=== PATIENT | male | born 1955 | race Caucasian/White ===

== ENCOUNTER 2020-09-10 11:13 | Outpatient (REF) | payer MEDICARE, SELFPAY ==
--- NOTE | ~2020-09-10 | CT_ITS ---
EXAMINATION: CT CHEST SCREENING CLINICAL INFORMATION: Nicotine dependence. COMPARISON: 07/19/2019 TECHNIQUE: Multidetector volumetric CT imaging of the chest is performed without contrast using low dose technique. Additional 2D coronal and sagittal reformatted images and axial 3D maximum intensity projection (MIP) images are generated on the CT workstation. This CT examination was performed using dose optimization techniques as appropriate, variously including the following: *Automated exposure control *Adjustment of mA and/or kV according to patient size (this includes techniques or standardized protocols for targeted exams where dose is matched to indication/reason for exam; i.e. extremities or head) *Use of iterative reconstruction technique DLP: 62 mGy-cm FINDINGS: LUNGS: No significant changes of centrilobular emphysema seen. There is bilateral apical pleural-parenchymal scarring present. Central airways are patent. There is bronchial wall thickening present bilaterally without evidence of bronchiectasis. No confluent parenchymal disease identified. There is a calcified granuloma seen within the right lower lobe. There are some scattered sub-4 mm densities present. MEDIASTINUM: Visualized portions of the thyroid gland unremarkable. Heart normal size. No thoracic aortic aneurysm. Coronary artery calcifications present. No pericardial effusion. No mediastinal or hilar lymphadenopathy appreciated. PLEURA: There is no pleural effusion. No pleural mass or thickening. AXILLA: No lymphadenopathy. UPPER ABDOMEN: Status post cholecystectomy. There is some capsular calcification seen about the splenic capsule. OSSEOUS STRUCTURES: No suspicious destructive bony lesions identified. CT/CT lung screening IMPRESSION: No suspicious lung nodules identified. Diffuse bronchial wall thickening without bronchiectasis. ASSESSMENT: Lung-RADS category 1: Negative RECOMMENDATION: Routine annual low-dose CT screening in 12 months.
== END 2020-09-10 11:14 | disposition home or self-care (01) ==
LOC: HO.CT 11:13
PROVIDERS: Visit Provider Surgery
DX: Z12.2 Encounter for screening for malignant neoplasm of respiratory organs (principal); F17.210 Nicotine dependence, cigarettes, uncomplicated
CPT/HCPCS: 71271

== ENCOUNTER 2021-10-15 10:17 | Outpatient (REF) | payer MEDICARE, SELFPAY ==
--- NOTE | ~2021-10-15 | CT_ITS ---
EXAMINATION: CT CHEST SCREENING CLINICAL INFORMATION: Nicotine dependence. COMPARISON: CT chest 09/10/2020. TECHNIQUE: Multidetector volumetric CT imaging of the chest is performed without contrast using low dose technique. Additional 2D coronal and sagittal reformatted images and axial 3D maximum intensity projection (MIP) images are generated on the CT workstation. This CT examination was performed using dose optimization techniques as appropriate, variously including the following: *Automated exposure control *Adjustment of mA and/or kV according to patient size (this includes techniques or standardized protocols for targeted exams where dose is matched to indication/reason for exam; i.e. extremities or head) *Use of iterative reconstruction technique DLP: 56 mGy-cm. FINDINGS: LUNGS: The lungs are well expanded and clear of acute pneumonic process. There is mild bilateral apical parenchymal scarring and pleural thickening. There is a 1 mm calcified nodule, right lower lobe axial image 244/6. Few subcentimeter scattered densities, none of which are significant increase since the last exam. There are no new pulmonary nodules seen. MEDIASTINUM: The thyroid lobes are symmetrical and normal. The central trachea and the bronchi widely patent. Heart size and the great vessels are normal caliber. No abnormal-sized mediastinal or hilar lymph nodes seen. PLEURA: There is no pleural effusion. No pleural mass or thickening. AXILLA: No lymphadenopathy. UPPER ABDOMEN: Visualized liver, spleen, pancreas and bilateral adrenal glands appear unremarkable. The gallbladder has been surgically removed. OSSEOUS STRUCTURES: No lytic or sclerotic process seen. CT/CT lung screening IMPRESSION: Subcentimeter small nodules, stable. No suspicious new nodules seen. ASSESSMENT: Lung-RADS category 1: Negative. RECOMMENDATION: Low-dose annual CT chest.
== END 2021-10-15 10:18 | disposition home or self-care (01) ==
LOC: HO.CT 10:17
PROVIDERS: PCP Internal Medicine; Visit Provider Physician Assistant Medical
DX: Z12.2 Encounter for screening for malignant neoplasm of respiratory organs (principal); F17.210 Nicotine dependence, cigarettes, uncomplicated
CPT/HCPCS: 71271

== ENCOUNTER → 2022-01-05 13:38 | Outpatient (BNVA) | payer MEDICARE, SELFPAY | PROVIDERS: PCP Internal Medicine; Visit Provider Internal Medicine | DX: I48.91 Unspecified atrial fibrillation (principal); F17.210 Nicotine dependence, cigarettes, uncomplicated; Z79.899 Other long term (current) drug therapy; Z72.89 Other problems related to lifestyle | CPT/HCPCS: 93005; 99202 ==

== ENCOUNTER → 2022-01-19 10:08 | Outpatient (BNVA) | payer MEDICARE, SELFPAY | PROVIDERS: PCP Internal Medicine; Referring Provider Internal Medicine; Visit Provider Internal Medicine | DX: I48.0 Paroxysmal atrial fibrillation (principal) | CPT/HCPCS: 93005; 99212 ==

== ENCOUNTER → 2022-01-28 10:31 | Outpatient (REF) | payer MEDICARE, SELFPAY ==
--- NOTE | 2022-01-28 10:37 | HM_ITS ---
Conclusion: 1. Patient was monitored for total period of 3 days and 7 hours 2. Baseline rhythm is normal sinus rhythm with average heart of 75 beats per minute in sinus rhythm. 3. Intermittent episodes of atrial fibrillation with total burden of 15.5% with heart rate going up to 153 beats per minute atrial fibrillation. The longest episode lasted for 6 hours and 28 minutes 4. Frequent short runs of SVT which could represent atrial fibrillation with longest episode lasting 7 beats 5. Total of 9129 PACs accounting for 2.52% of total beats account for frequent PACs 6. Total of 1044 PVCs accounting for 0.29% of total beats accounting for occasional PVCs 7. Patient reported multiple events which correlated either with PACs or runs of atrial fibrillation. [facility]
--- NOTE | 2022-01-28 10:37 | CA_ITS ---
Transthoracic Echocardiogram Patient (Last, First, Middle): Boni Espinoza, Gender: Male Date of : 1955 Age: 66 Procedure Date: 01/28/2022 Procedure Type: Transthoracic Echocardiogram Location: OP Height: 172.72 cm Weight: 81.65 kg BSA: 1.95 m2 Heart Rate: bpm BP: 122 / 60 mmHg Post Tensioning Ironworker: Referring MD: Timmy Dee MD Healthcare Customer Service: Hilario Pascual MD Symptoms: I48.0 - Paroxysmal atrial fibrillation Study Quality: Fair, Good on apical views ECG Rhythm: Sinus Conclusions: - 1. Normal LV systolic function with grade 1 diastolic dysfunction 2. Normal cardiac valvular Doppler 3. No gross pericardial effusion Findings Left Ventricle The visually estimated ejection fraction is between 55-60%. Spectral Doppler is indicative of an impaired relaxation filling pattern. E/E prime ratio is <8, consistent with normal filling pressures. Evidence suggests grade I (mild) diastolic dysfunction. Peak GLS is -17.8%, within normal limits Right Ventricle Normal right ventricular cavity size and systolic function. Atria Both atria are normal in size. There is no evidence of interatrial shunt. Aortic Valve Normal aortic valve structure and function. There is no aortic valve stenosis. There is no aortic valve regurgitation. Mitral Valve Normal mitral valve structure and function. There is trace mitral valve regurgitation. There is no mitral valve stenosis. Pulmonic Valve The pulmonic valve is likely normal. Tricuspid Valve Likely normal tricuspid valve structure and function. Tricuspid regurgitation envelope is inadequate for calculation of right ventricular systolic pressure. Normal right atrial pressure. Great Vessels All visible segments of the aorta are normal in size. The pulmonary artery was not well visualized. Venous The inferior vena cava is normal in size and collapses greater than 50% with inspiration. Pericardium/Pleural There is no evidence of pericardial effusion. Prior Study Comparison no previous study in the last 5 years for comparison Measurements 2D Linear Measurements IVSd: 1.09 0.6-0.9/0.6-1.0 cm LVIDd: 4.20 3.9-5.3/4.2-5.9 cm LVIDd Index: 2.15 2.4-3.2/2.2-3.1 cm/m2 LVIDs: 2.98 2.0-3.6 cm LVPWd: 0.99 0.7-1.1 cm Ao Root: 3.10 2.1-3.5 cm LA Diam: 2.80 2.7-3.8/3.0-4.0 cm LAIDs Index: 1.44 1.5-2.3 cm/m2 LV Mass: 180.53 67-162/88-224 g LV Mass Index: 92.58 43-95/49-115 g/m2 LVOT Diam: 2.00 3.0+(-)1.3 cm 2D Systolic Function EF 4C: 53.90 >55% EF 2C: 51.90 >55% Mitral Valve MV Pk E: 0.43 MV PK A: 0.75 MV Decel Time: 228.00 E/A: 0.60 E'Lateral: 7.40 E'Medial: 4.90 E/E' Med: 8.80 E/E' Lat: 5.90 PHT: 67.00 MVA PHT: 3.28 Decel [place]: 1.90 Aortic Valve AoV Pk Leroy: 1.12 AoV Mn Leroy: 0.73 AoV VTI: 0.28 AoV Pk Grad: 5.00 Aov Mn Grad: 3.00 TOÑA Cont.VTI: 2.41 LVOT LVOT Pk Leroy: 1.03 LVOT Mn Leroy: 0.68 LVOT VTI: 0.21 LVOT Pk Grad: 4.00 LVOT Mn Grad: 2.00 LVOT Diam: 2.00 LVOT Area: 3.14 Diastolic Function MV Pk E: 0.43 MV Pk A: 0.75 E/A: 0.60 E'Medial: 4.90 E/E' Med: 8.80 E' Laterial: 7.40 E/E' Lat: 5.90 Right Ventricle TAPSE (mm): 28.00 TVS' Leroy: 12.00 Tricuspid Valve TR Pk Leroy: 2.04 TR Pk Grad: 17.00 RA Press: 3.00 Great Vessels Aorta Ao Root-2D: 3.10 2.0-3.7 cm Ao Asc: 3.10 2.1-3.4 cm Pulmonary Valve PV Pk Leroy: 0.95 Peak PV Grad: 4.00 Updated in Other Vendor System with Status of Final Hilario Pascual MD electronically signed on 01/28/2022 11:48:11 AM with status of Final
== END ==
LOC: HO.CARD 10:31
PROVIDERS: Visit Provider Internal Medicine
DX: I48.0 Paroxysmal atrial fibrillation (principal)
CPT/HCPCS: 93242; 93306; 93356

== ENCOUNTER → 2022-03-11 13:25 | Outpatient (BNVA) | payer MEDICARE, SELFPAY | PROVIDERS: PCP Internal Medicine; Referring Provider Internal Medicine; Visit Provider Internal Medicine | DX: I48.0 Paroxysmal atrial fibrillation (principal) | CPT/HCPCS: 99212 ==

== ENCOUNTER → 2022-07-06 13:00 | Outpatient (REF) | payer MEDICARE, SELFPAY ==
--- NOTE | 2022-07-06 13:02 | HM_ITS ---
* Total monitoring time approximately 3 days. * Underlying rhythm is atrial fibrillation. Present 96% the time. Some strips show evidence of sinus. * Ventricular rate as much as 164/Min. Other areas with controlled atrial fibrillation. * No significant pauses or AV blocks. Longest, 3.1 seconds. That strip has a lot of artifact. During sleep hours. * Overall, high burden of atrial fibrillation with evidence of rapid rates. MTDD
== END ==
LOC: HO.CARD 13:00
PROVIDERS: PCP Internal Medicine; Visit Provider Internal Medicine
DX: I48.91 Unspecified atrial fibrillation (principal)
CPT/HCPCS: 93242

== ENCOUNTER 2022-07-09 11:21 | Outpatient (REF) | payer MEDICARE, SELFPAY ==
[2022-07-09 11:26] LABS: MANUAL DIFF FLAG NO
[2022-07-09 11:38] LABS: Appearance Urine Clear; Basophils Absolute Auto 0.1 X10*3/uL (0.0-0.2); Basophils Percent Auto 0.9 % (0-2); Color Urine Yellow; Eosinophils Absolute Auto 0.1 X10*3/uL (0.0-0.4); Eosinophils Percent Auto 1.6 % (0-4); Glucose Urine UA Negative (Negative); Hematocrit 46.7 % (42.0-52.0); Hemoglobin 15.8 g/dl (14.0-18.0); Imm Gran Abs Auto 0.02 X10*3/uL (0.00-0.03); Imm Gran Pct Auto 0.4 % (0.0-0.4); Leukocyte Esterase Urine Negative (Negative); Lymphocytes Absolute Auto 1.3 X10*3/uL (1.2-4.9); Lymphocytes Percent Auto 23.7 % (20-40); Mean Corpuscular HGB Conc 33.8 g/dl (31.0-36.0); Mean Corpuscular Hemoglobin 32.9 pg (27.0-33.0); Mean Corpuscular Volume 97.3 fL (80.0-98.0); Mean Platelet Volume 10.7 fL (9.4-12.4); Monocytes Absolute Auto 0.6 X10*3/uL (0.1-1.2); Monocytes Percent Auto 11.3 % (2-11); Neutrophils Absolute Auto 3.4 x10*3/uL (2.0-8.3); Neutrophils Percent Auto 62.1 % (45-73); Nitrite Urine Negative (Negative); Platelet Count 231 X10*3/uL (160-400); Red Cell Distribution Width 13.4 % (11.0-16.0); Urine Blood Negative (Negative); Urine Ketones Negative (Negative); Urine Protein Trace mg/dL (Neg-Trace); White Blood Count 5.5 X10*3/uL (4.8-10.8)
[2022-07-09 12:15] LABS: Alanine Aminotransferase 35 U/L (0-40); Alkaline Phosphatase 64 U/L (39-117); Anion Gap 15 (12-20); Aspartate Amino Transferase 20 U/L (5-37); Bilirubin Direct 0.2 mg/dL (0.0-0.5); Bilirubin Total 0.7 mg/dL (0.0-1.0); Blood Urea Nitrogen 16 mg/dL (9-16); Calcium 9.1 mg/dL (8.4-10.2); Carbon Dioxide 27 mmol/L (22-29); Chloride 105 mmol/L (96-108); Cholesterol 168 mg/dL; Estimated Glomerular Filt Rate > 60; Glucose Fasting 152 mg/dL (60-99); HDL Cholesterol 45 mg/dL; LDL Cholesterol Calculated 89 mg/dl; PSA,Total (Free>4and<10) 0.39 ng/mL (0.00-4.00); Potassium 4.6 mmol/L (3.3-5.1); Sodium 142 mmol/L (135-145); Total Protein 6.7 g/dL (6.5-8.0); Triglycerides 170 mg/dL
[2022-07-09 13:41] LABS: Reflex LDLD? No
== END 2022-07-09 11:22 | disposition home or self-care (01) ==
LOC: HO.LNP 11:21
PROVIDERS: Visit Provider Internal Medicine
DX: Z12.5 Encounter for screening for malignant neoplasm of prostate (principal); I48.91 Unspecified atrial fibrillation; F10.20 Alcohol dependence, uncomplicated; F17.200 Nicotine dependence, unspecified, uncomplicated; I10 Essential (primary) hypertension; E78.00 Pure hypercholesterolemia, unspecified; J43.8 Other emphysema
CPT/HCPCS: 80053; 80061; 80076; 81003; 82248; 84153; 85025

== ENCOUNTER → 2022-07-21 10:09 | Outpatient (BNVA) | payer MEDICARE, SELFPAY | PROVIDERS: PCP Internal Medicine; Referring Provider Internal Medicine; Visit Provider Internal Medicine | DX: I48.0 Paroxysmal atrial fibrillation (principal); I25.10 Atherosclerotic heart disease of native coronary artery without angina pectoris; I25.84 Coronary atherosclerosis due to calcified coronary lesion | CPT/HCPCS: 93005; 99212 ==

== ENCOUNTER 2022-08-03 10:24 | Outpatient (REF) | payer MEDICARE, SELFPAY ==
--- NOTE | ~2022-08-03 | US_ITS ---
EXAMINATION: US ABDOMEN COMPLETE CLINICAL INFORMATION: Uncomplicated alcohol dependence. COMPARISON: CT abdomen and pelvis without contrast 11/09/2017. TECHNIQUE: Real-time imaging of the abdominal viscera. FINDINGS: PANCREAS: The majority of the pancreas is obscured by overlying bowel gas. The visualized portions of the head are within normal limits. ABDOMINAL AORTA: Visualized portions are within normal limits. INFERIOR VENA CAVA: Visualized portions are normal. LIVER: The liver is normal in size. The liver contour is normal. Increased echogenicity. No focal hepatic lesion. There is no intrahepatic biliary duct dilatation seen. GALLBLADDER: Surgically absent. COMMON BILE DUCT: Dilated measuring 1 cm. RIGHT KIDNEY: Normal. No hydronephrosis. No renal calculi or focal parenchymal lesions. The kidney measures 12.7 cm in maximum dimension. LEFT KIDNEY: Normal. No hydronephrosis. No renal calculi or focal parenchymal lesions. The kidney measures 12.2 cm in maximum dimension. SPLEEN: Normal. The spleen measures 8.2 cm in maximum dimension. FREE FLUID: None. US/US abdomen complete IMPRESSION: 1. Increased echogenicity of the liver is nonspecific but could be seen in the setting of hepatic steatosis or hepatocellular disease. 2. Dilated CBD, nonspecific in the setting of prior cholecystectomy. If an obstructive abnormality such as choledocholithiasis is suspected, recommend correlation with MRCP.
== END 2022-08-03 10:25 | disposition home or self-care (01) ==
LOC: HO.US 10:24
PROVIDERS: PCP Internal Medicine; Visit Provider Internal Medicine
DX: F10.20 Alcohol dependence, uncomplicated (principal)
CPT/HCPCS: 76700

== ENCOUNTER 2022-09-25 09:38 | Outpatient (REF) | payer MEDICARE, SELFPAY ==
--- NOTE | ~2022-09-25 | CT_ITS ---
EXAMINATION: CT CHEST SCREENING CLINICAL INFORMATION: Current smoker. 50 pack-year history. COMPARISON: Previous chest CT September 2021 TECHNIQUE: Multidetector volumetric CT imaging of the chest is performed without contrast using low dose technique. Additional 2D coronal and sagittal reformatted images and axial 3D maximum intensity projection (MIP) images are generated on the CT workstation. This CT examination was performed using dose optimization techniques as appropriate, variously including the following: *Automated exposure control *Adjustment of mA and/or kV according to patient size (this includes techniques or standardized protocols for targeted exams where dose is matched to indication/reason for exam; i.e. extremities or head) *Use of iterative reconstruction technique DLP: 61 mGy-cm FINDINGS: LUNGS: There is biapical pleural and parenchymal scarring. There is increasing linear parenchymal density in the right lung apex adjacent to the mediastinum. This measures 0.3 x 0.8 cm axial image 83 series 5. Attention on follow-up recommended. Small pulmonary nodules are stable. No new pulmonary nodule. Mild scarring or subsegmental atelectasis in the anterior segment of the right upper lobe and medial segment of the right middle lobe. No endobronchial or endotracheal lesion. MEDIASTINUM: The mediastinum is normal. CORONARY ARTERY CALCIFICATION: Mild PLEURA: There is no pleural effusion. No pleural mass or thickening. AXILLA: No lymphadenopathy. UPPER ABDOMEN: Linear probable capsular calcification of the spleen. Small calcifications in the pancreas suggestive of chronic pancreatitis. Post cholecystectomy. OSSEOUS STRUCTURES: Unremarkable. CT/CT lung screening IMPRESSION: Increasing linear parenchymal density in the right lung apex adjacent to the mediastinum. Attention on follow-up recommended. Otherwise small pulmonary nodules are stable. Mild emphysema. ASSESSMENT: Lung-RADS category 2: Benign RECOMMENDATION: Annual low-dose chest CT follow-up recommended.
== END 2022-09-25 09:39 | disposition home or self-care (01) ==
LOC: HO.CT 09:38
PROVIDERS: PCP Internal Medicine; Visit Provider Physician Assistant Medical
DX: Z12.2 Encounter for screening for malignant neoplasm of respiratory organs (principal); F17.210 Nicotine dependence, cigarettes, uncomplicated
CPT/HCPCS: 71271

== ENCOUNTER → 2023-01-12 07:43 | Outpatient (REF) | payer MEDICARE, SELFPAY ==
--- NOTE | ~2023-01-12 | NM_ITS ---
Lexiscan Myocardial perfusion study Indication: Coronary artery calcification on CT scan, assess for ischemia. Technique: The patient was brought in for a Lexiscan perfusion study on 01/12/2023 and was injected 0.4 mg of Lexiscan intravenously. Within a minute of this injection 30 mCi of sestamibi was given intravenously. Images were obtained using the SPECT gamma camera interlaced with the gating device. Images were obtained in supine position. Resting perfusion study was performed on 01/15/2023. Patient was administered 30 mCi of sestamibi intravenously at rest. Images were then obtained in supine position. Images were processed with the software and compared side to side in short axis, horizontal long axis and vertical long axis views. Total DLP 88mGy-cm. Findings: Raw acquisition reviewed. The stress perfusion study showed no significant perfusion abnormality. Both uncorrected as well as CT attenuation corrected images were reviewed. The gated study shows normal LV systolic function with calculated LVEF of 67%. LV cavity is normal in size. The gated study shows normal wall thickening and contraction of segments. Resting study shows no significant perfusion abnormality. Gating at rest reveals normal wall motion with ejection fraction at 54%. The findings are consistent with no clear reversible or fixed perfusion defects. NM/NM emily perf SPECT rest & str Impression: 1. Myocardial perfusion imaging study shows normal myocardial perfusion. 2. Gated LVEF is normal. 3. Transient ischemic dilatation not present. EKG component of the test reported separately.
--- NOTE | 2023-01-12 07:46 | CA_ITS ---
Acquisition Time: 2023-01-12 09:17:06 Total Exercise Time: 00:02:00 Test Indications: CAD Medications: METOPROLOL DILTIAZEM Protocol: LEXISCAN Max HR: 077 BPM 49% of Pred: 155 BPM Max BP: 144/076 mmHG Max Work Load: 1.6 METS Pharmacolgoical stress test with Lexiscan injection while walking slowly on the treadmill due to sinus judy, without anginal symptoms, with isolated PVCs, with normotensive response to Lexiscan, with T wave inversions V4-V6.. Nuclear images pending. Test reviewed with Dt. Martin. Referred By: Ambrosio Martin Overread By: AMBROSIO MARTIN
--- NOTE | 2023-01-12 07:46 | CA_ITS ---
Transthoracic Echocardiogram Patient (Last, First, Middle): Boni Espinoza, Gender: Male Date of : 1955 Age: 67 Procedure Date: 01/12/2023 Procedure Type: Transthoracic Echocardiogram Location: OP Height: 172.72 cm Weight: 87.09 kg BSA: 2.01 m2 Heart Rate: bpm BP: 132 / 76 mmHg Manager Personnel Selection: CHARLENE Referring MD: Timmy Dee MD Symptoms: I25.10 - Atherosclerotic heart disease of [place] coronary artery without... Study Quality: Fair ECG Rhythm: Sinus Conclusions: - The left ventricular systolic function is normal. The calculated ejection fraction is 63% by biplane method. - No obvious valvular pathology seen on this study. Findings Left Ventricle Normal left ventricular cavity size. There is normal left ventricular wall thickness. The left ventricular systolic function is normal. The calculated ejection fraction is 63% by biplane method. There is no evidence of regional wall motion abnormalities. Diastolic function is normal for age. LV peak GLS -18.8%. Right Ventricle Normal right ventricular cavity size and systolic function. Atria Both atria are normal in size. Aortic Valve There is a normal trileaflet aortic valve. There is no aortic valve stenosis. There is no aortic valve regurgitation. Mitral Valve The mitral valve appears normal. There is no mitral valve regurgitation. There is no mitral valve stenosis. Pulmonic Valve The pulmonic valve is likely normal. Tricuspid Valve Normal tricuspid valve structure. There is trace tricuspid valve regurgitation. There is no evidence of pulmonary hypertension. Great Vessels The asc aorta is normal in size. Venous The inferior vena cava is normal in size and collapses greater than 50% with inspiration. Pericardium/Pleural There is no evidence of pericardial effusion. Prior Study Comparison No significant change compared to prior study dated: 01/28/2022. Recommendations, Care & Conclusions No obvious valvular pathology seen on this study. Measurements 2D Linear Measurements IVSd: 1.00 0.6-0.9/0.6-1.0 cm LVIDd: 3.99 3.9-5.3/4.2-5.9 cm LVIDd Index: 1.99 2.4-3.2/2.2-3.1 cm/m2 LVIDs: 2.57 2.0-3.6 cm LVPWd: 0.90 0.7-1.1 cm LA Diam: 3.20 2.7-3.8/3.0-4.0 cm LAIDs Index: 1.59 1.5-2.3 cm/m2 LV Mass: 146.34 67-162/88-224 g LV Mass Index: 72.81 43-95/49-115 g/m2 LVOT Diam: 2.00 3.0+(-)1.3 cm 2D Systolic Function EF 4C: 65.40 >55% EF 2C: 58.40 >55% EF BiP: 63.40 >55% Mitral Valve MV Pk E: 0.68 MV PK A: 0.72 MV Decel Time: 278.00 E/A: 0.90 E'Lateral: 8.70 E'Medial: 7.29 E/E' Med: 9.30 E/E' Lat: 7.80 PHT: 81.00 MVA PHT: 2.72 Decel [place]: 2.43 Aortic Valve AoV Pk Leroy: 1.41 AoV Mn Leroy: 0.93 AoV VTI: 0.31 AoV Pk Grad: 8.00 Aov Mn Grad: 4.00 TOÑA Cont.VTI: 2.43 LVOT LVOT Pk Leroy: 1.16 LVOT Mn Leroy: 0.70 LVOT VTI: 0.24 LVOT Pk Grad: 5.00 LVOT Mn Grad: 2.00 LVOT Diam: 2.00 LVOT Area: 3.14 Diastolic Function MV Pk E: 0.68 MV Pk A: 0.72 E/A: 0.90 E'Medial: 7.29 E/E' Med: 9.30 E' Laterial: 8.70 E/E' Lat: 7.80 Right Ventricle TAPSE (mm): 26.20 TVS' Leroy: 12.30 Tricuspid Valve TR Pk Leroy: 1.56 TR Pk Grad: 10.00 RA Press: 3.00 RVSP: 13.00 Great Vessels Aorta Sinus of Valsalva: 3.32 2.0-3.[address] [place]: 2.92 1.7-3.4 cm Ao Asc: 3.60 2.1-3.4 cm Updated in Other Vendor System with Status of Final Timmy Dee MD electronically signed on 01/14/2023 11:23:18 AM with status of Final
== END ==
LOC: HO.CARD 07:43
PROVIDERS: PCP Internal Medicine; Visit Provider Internal Medicine
DX: I25.10 Atherosclerotic heart disease of native coronary artery without angina pectoris (principal); I25.84 Coronary atherosclerosis due to calcified coronary lesion
CPT/HCPCS: 78452; 93017; 93306; 93356; A9500; J0280; J2785

== ENCOUNTER → 2023-01-12 07:46 | Outpatient (BNV) | payer MEDICARE, SELFPAY | PROVIDERS: PCP Internal Medicine; Visit Provider Internal Medicine | DX: I25.10 Atherosclerotic heart disease of native coronary artery without angina pectoris (principal) | CPT/HCPCS: 78452; 93016; 93018; 93306 ==

== ENCOUNTER 2023-01-26 08:12 | Outpatient (AMB) | payer MEDICARE, SELFPAY ==
[2023-01-26 08:16] VITALS: BP 104/82; PULSE 77; BMI 29.2
--- NOTE | 2023-01-26 08:16 | A.OFFVIS_ITS ---
Intake Vital Signs 01/26/23 08:16 Height 5 ft 8 in Weight 192 lb 3.889 oz BMI 29.2 BP 104/82 Blood Pressure Location Lt brachial Position Sitting Pulse 77 Pulse Source Pulse Oximeter Intake Visit Reasons: follow up stress test Intake Note: Follow up stress test patient still felling s/b Top Spotter Required: No Allergies No Known Allergies Allergy (Verified 01/26/23 08:21) Medication List - Last Reconciled 01/26/23 by Alena Neumann NP-C apixaban (Eliquis) 5 mg PO BID 90 days diltiazem HCl 240 mg (2 x 120 mg) PO DAILY 90 days metoprolol tartrate 50 mg PO BID 90 days HPI follow up stress test HPI Details Boni is a 67-year-old male with past medical history alcohol use, smoking 1 pack cigarettes per day, paroxysmal atrial fibrillation who presents for follow-up after recent echocardiogram and stress test. Today he reports he has been feeling generally well. He does have some shortness of breath with physical activity which he states is his norm. He tells me he continues to smoke and drinks a few nips of alcohol daily. Uses his wifes inhaler at times, when he has coughing and wheezing. No chest discomfort at rest or with activity. He denies any heart palpitations, no dizziness, presyncope, syncope, falls. No PND, orthopnea or edema. He reports compliance with his medications. No bleeding issues reported with Eliquis. [facility] Surgical History No pertinent past surgical history Family History Father Heart disease Mother Diabetes Social History Alcohol intake: current Patient Tobacco Use Status: Current everyday Tobacco user Cigarette Packs Per Day: 1 Review of Systems Const All systems reviewed & are unremarkable except as noted in HPI and below Card Reports dyspnea on exertion Resp Details: Continues smoking Reports cough and Reports dyspnea on exertion Physical Exam Vital Signs: Last Vital Signs Pulse 77 01/26/23 08:16 BP 104/82 01/26/23 08:16 BMI result Body Mass Index 29.2 Const General: cooperative, healthy appearing, comfortable and no acute distress Orientation/consciousness: patient oriented x3 Neck Neck: Yes normal visual inspection Chest Chest palpation & inspection: normal inspection of the chest Resp Effort & Inspection: normal respiratory effort Auscultation: clear to auscultation bilaterally, no crackles, no rales, no rhonchi and no wheezes Cardio Jugular venous distension: no JVD Rate: regular rate Rhythm: regular rhythm Heart sounds: S1 normal heart sound present, S2 normal heart sound present, no gallops, no murmurs and no rubs Neuro General: patient oriented x3 Extrem General: Yes normal to inspection Psych Appearance: grossly normal Mental Status: mental status grossly normal Speech and movement: Normal speech and movement present Assessment & Plan Assessment & Plan (1) PAF (paroxysmal atrial fibrillation): Code(s): I48.0 - Paroxysmal atrial fibrillation Plan: History of paroxysmal atrial fibrillation. Holter monitor done 06/2022 showed atrial fibrillation 96% of the time, average heart rate 94. Is no concerning heart palpitations. He is on diltiazem and metoprolol for heart rate control. He is on Eliquis for anticoagulation. No bleeding issues reported. Echocardiogram done 01/12/2023 shows EF 63%, no valve abnormalities and no regional wall motion abnormalities. Heart tones are regular on examination today. Benefits of alcohol cessation, smoking cessation reviewed with him and he states understanding. Informed how alcohol can increase the frequency of atrial fibrillation. Continue current meds without change. Cardiology follow- up 6 months, sooner if needed. (2) Coronary artery calcification: Code(s): I25.10 - Atherosclerotic heart disease of [place] coronary artery without angina pectoris; I25.84 - Coronary atherosclerosis due to calcified coronary lesion Plan: Prior chest CT with coronary artery calcifications. No reports of anginal sounding symptoms. He underwent a pharmacological nuclear stress test on 01/15/2023 showing normal myocardial perfusion imaging. (3) Smoking: Comment: 1 pack per day, 01/2023 Code(s): F17.200 - Nicotine dependence, unspecified, uncomplicated Plan: Continues to smoke 1 pack of cigarettes per day. He does have expiratory wheezes noted on examination. He reports intermittent cough with sputum. He likely has COPD related to his chronic smoking. He tells me he has used his wifes inhaler at times. Will send this note to his PCP. Patient may benefit from further evaluation/treatment for this problem. Need for smoking cessation was discussed with him. (4) Alcohol use: Code(s): Z78.9 - Other specified health status Plan: He tells me he drinks a few nips daily. He says he is not addicted and could stop at any time. Instructed to stop drinking as it may affect his heart with increased AFib, cardiomyopathy. Coding Level of Care Code Est Pt Level 4 (52732) Diagnoses PAF (paroxysmal atrial fibrillation) I48.0 Coronary artery calcification I25.10; I25.84 Smoking F17.200 Alcohol use Z78.9 Time Spent (min) 24 Comment Chart review, documentation, interview, assessment
== END 2023-01-26 08:42 | disposition home or self-care (01) ==
PROVIDERS: PCP Internal Medicine; Referring Provider Internal Medicine; Visit Provider Nurse Practitioner Family
DX: I48.0 Paroxysmal atrial fibrillation (principal); I25.10 Atherosclerotic heart disease of native coronary artery without angina pectoris; I25.84 Coronary atherosclerosis due to calcified coronary lesion; F17.200 Nicotine dependence, unspecified, uncomplicated; Z78.9 Other specified health status
CPT/HCPCS: 99214

== ENCOUNTER → 2023-01-26 08:12 | Outpatient (BNVA) | payer MEDICARE, SELFPAY | PROVIDERS: PCP Internal Medicine; Referring Provider Internal Medicine; Visit Provider Nurse Practitioner Family | DX: I48.0 Paroxysmal atrial fibrillation (principal); I25.10 Atherosclerotic heart disease of native coronary artery without angina pectoris; F17.200 Nicotine dependence, unspecified, uncomplicated; Z79.01 Long term (current) use of anticoagulants; Z78.9 Other specified health status | CPT/HCPCS: 99212 ==

== ENCOUNTER 2023-08-13 13:43 | Outpatient (AMB) | payer MEDICARE, SELFPAY ==
[2023-08-13 14:10] VITALS: BP 120/70; PULSE 62; BMI 28.8
--- NOTE | 2023-08-13 14:10 | MHC.OFFVIS ---
Intake Vital Signs 08/13/23 14:10 Height 5 ft 8 in Weight 189 lb 2.506 oz BMI 28.8 BP 120/70 Blood Pressure Location Lt brachial Position Sitting Pulse 62 Intake Visit Reasons: 6 mth fu Intake Note: pt its here for his 6 mth f/up/ pt still with sob Configuration Management Administrator Required: No Accompanied by: Self / Same As Patient Allergies No Known Allergies Allergy (Verified 01/26/23 08:21) Medication List - Last Reconciled 08/13/23 by Alena Neumann NP-C apixaban (Eliquis) 5 mg PO BID 90 days diltiazem HCl 240 mg (2 x 120 mg) PO DAILY 90 days metoprolol tartrate 50 mg PO BID HPI 6 mth fu HPI Details Boni is a 67-year-old male with past medical history alcohol use, smoking 1 pack cigarettes per day, paroxysmal atrial fibrillation who presents for follow-up. Today he reports that he has been notice increasing shortness of breath with activity. He tells me just the walk from his car to this office became short of breath. Symptom does improve quickly with rest. He does have a congested cough at times which he relates to his smoking. He continues to smoke 1 pack of cigarettes per day. He also is drinking 6 alcohol nips per day. He denies having chest discomfort at rest or with activity. No heart palpitations, lightheadedness, presyncope, syncope, PND, orthopnea or edema. He says he is taking his meds as directed. [facility] Surgical History No pertinent past surgical history Family History Father Heart disease Mother Diabetes Social History Alcohol intake: current Patient Tobacco Use Status: Current everyday Tobacco user Cigarette Packs Per Day: 1 Review of Systems Const All systems reviewed & are unremarkable except as noted in HPI and below Denies chills, Denies fatigue, Denies fever(s), Denies frequent falls, Denies weakness, Denies weight gain and Denies weight loss ENT Denies dizziness Card Denies chest pain, Denies leg edema, Denies lightheadedness, Denies palpitations, Reports dyspnea and Reports dyspnea on exertion Resp Denies cough, Reports dyspnea and Reports dyspnea on exertion GI Denies hematochezia Musc Denies abnormal gait, Denies muscle weakness, Denies numbness, Denies radiating pain into limb and Denies tingling Neuro Denies abnormal gait, Denies dizziness, Denies frequent falls, Denies numbness, Denies tingling and Denies weakness Endo Denies fatigue and Denies palpitations Physical Exam Vital Signs: Last Vital Signs Pulse 62 08/13/23 14:10 BP 120/70 08/13/23 14:10 BMI result Body Mass Index 28.8 Const General: cooperative, healthy appearing, comfortable and no acute distress Orientation/consciousness: patient oriented x3 Neck Neck: Yes normal visual inspection Chest Chest palpation & inspection: normal inspection of the chest Resp Effort & Inspection: normal respiratory effort Auscultation: clear to auscultation bilaterally, no crackles, no rales, no rhonchi and no wheezes Cardio Jugular venous distension: no JVD Rate: regular rate Rhythm: regular rhythm Heart sounds: S1 normal heart sound present, S2 normal heart sound present, no gallops, no murmurs and no rubs Neuro General: patient oriented x3 Extrem General: Yes normal to inspection Psych Appearance: grossly normal Mental Status: mental status grossly normal Speech and movement: Normal speech and movement present Office Procedures EKG Details: Today, read by me, Sinus rhythm, new T wave inversions inferiorly and V4-V6, artifact present on tracing, rate 62, QTc 395ms [id number], Complete Assessment & Plan Assessment & Plan (1) PAF (paroxysmal atrial fibrillation): Code(s): I48.0 - Paroxysmal atrial fibrillation Plan: History of paroxysmal atrial fibrillation. Holter monitor done 06/2022 showed atrial fibrillation 96% of the time, average heart rate 94. Echocardiogram done 01/12/2023 shows EF 63%, no valve abnormalities and no regional wall motion abnormalities. He was in sinus rhythm at the time of the echocardiogram. EKG done today shows sinus rhythm, rate 62. He denies any recent heart palpitations. He is on diltiazem and metoprolol for heart rate control. He is on Eliquis for anticoagulation. No bleeding issues reported. Heart tones are regular on examination today. Drinking 6 alcoholic nips per day. Benefits of alcohol cessation, smoking cessation reviewed with him and he states understanding. Informed how alcohol can increase the frequency of atrial fibrillation. Continue current meds without change. (2) Coronary artery calcification: Code(s): I25.10 - Atherosclerotic heart disease of [place] coronary artery without angina pectoris; I25.84 - Coronary atherosclerosis due to calcified coronary lesion Plan: Prior chest CT with coronary artery calcifications. He underwent a pharmacological nuclear stress test on 01/15/2023 showing normal myocardial perfusion imaging. Echocardiogram as above with normal EF no regional wall motion abnormalities. Today is reporting increasing shortness of breath. This could be explained by his smoking 1 pack of cigarettes per day however EKG done today shows normal sinus rhythm with new T-wave inversions inferiorly and V4 through V6. He tells me that his father of an [place] at his age. Cardiac risk factors of smoking, history, sedentary. Reviewed with Dr. Dee. Will check a CTA of the coronary arteries as soon as we can get it done, will likely be at [facility]. Will check an limited echocardiogram to reassess EF and wall motion. Signs and symptoms of angina reviewed with him. Informed that he may have coronary artery narrowing. Emergency care if ever needed for any symptoms. Cardiology follow-up in 3-4 weeks, or when test results available/ sooner if needed (3) Smoking: Comment: 1 pack per day, 01/2023 Code(s): F17.200 - Nicotine dependence, unspecified, uncomplicated Plan: Continues to smoke 1 pack of cigarettes per day. He does have expiratory wheezes noted on examination. He reports intermittent cough with sputum. He likely has COPD related to his chronic smoking. He tells me he has used his wifes inhaler at times. Will send this note to his PCP. Need for smoking cessation was discussed with him. (4) Alcohol use: Code(s): Z78.9 - Other specified health status Plan: He tells me he drinks a few nips daily. He says he is not addicted and could stop at any time. Instructed to stop drinking as it may affect his heart with increased AFib, cardiomyopathy. Plan Time spent on chart review, documentation, interview assessment Orders: Orders CT Cardiac Coronary Angio Today R06.02 - Shortness of breath, R94.31 - Abnormal electrocardiogram [ECG] [EKG] CA echo limited Today R06.02 - Shortness of breath, R94.31 - Abnormal electrocardiogram [ECG] [EKG] Basic Metabolic Panel Today R06.02 - Shortness of breath Coding Level of Care Code Est Pt Level 4 (36142) Diagnoses PAF (paroxysmal atrial fibrillation) I48.0 Coronary artery calcification I25.10; I25.84 Smoking F17.200 Alcohol use Z78.9 CPT Codes EKG - CPT: [id number]-[id number], Complete ([id number]) Time Spent (min) 30
== END 2023-08-13 14:40 | disposition home or self-care (01) ==
PROVIDERS: PCP Internal Medicine; Visit Provider Nurse Practitioner Family
DX: I48.0 Paroxysmal atrial fibrillation (principal); I25.10 Atherosclerotic heart disease of native coronary artery without angina pectoris; I25.84 Coronary atherosclerosis due to calcified coronary lesion; F17.200 Nicotine dependence, unspecified, uncomplicated; Z78.9 Other specified health status
CPT/HCPCS: 93010; 99214

== ENCOUNTER → 2023-08-13 13:43 | Outpatient (BNVA) | payer MEDICARE, SELFPAY | PROVIDERS: PCP Internal Medicine; Visit Provider Nurse Practitioner Family | DX: I48.0 Paroxysmal atrial fibrillation (principal); I25.10 Atherosclerotic heart disease of native coronary artery without angina pectoris; I25.84 Coronary atherosclerosis due to calcified coronary lesion; I10 Essential (primary) hypertension; F10.21 Alcohol dependence, in remission; F17.210 Nicotine dependence, cigarettes, uncomplicated | CPT/HCPCS: 93005; 99212 ==

== ENCOUNTER → 2023-08-17 08:49 | Outpatient (REF) | payer MEDICARE, SELFPAY ==
--- NOTE | 2023-08-17 08:52 | CA_ITS ---
Transthoracic Echocardiogram Patient (Last, First, Middle): Boni Espinoza, Gender: Male Date of : 1955 Age: 68 Procedure Date: 08/17/2023 Procedure Type: Transthoracic Echocardiogram Location: OP Height: 172. cm Weight: 85.28 kg BSA: 1.98 m2 Heart Rate: 73 bpm BP: 95 / 65 mmHg Summer Counselor: CAL Fermin MD: Alena Neumann PROCESS OWNER-C Symptoms: R06.02 - Shortness of breath Study Quality: Fair ECG Rhythm: Atrial Fibrillation Conclusions: - The left ventricular systolic function is normal. The visually estimated ejection fraction is between 60-65%. Findings Left Ventricle Normal left ventricular cavity size. The left ventricular systolic function is normal. The visually estimated ejection fraction is between 60-65%. There is no evidence of regional wall motion abnormalities. Venous The inferior vena cava is normal in size and collapses greater than 50% with inspiration. Prior Study Comparison No significant change compared to prior study dated: 01/12/2023. Measurements 2D Linear Measurements IVSd: 0.94 0.6-0.9/0.6-1.0 cm LVIDd: 3.53 3.9-5.3/4.2-5.9 cm LVIDd Index: 1.78 2.4-3.2/2.2-3.1 cm/m2 LVIDs: 2.30 2.0-3.6 cm LVPWd: 1.04 0.7-1.1 cm LA Diam: 3.80 2.7-3.8/3.0-4.0 cm LAIDs Index: 1.92 1.5-2.3 cm/m2 LV Mass: 127.95 67-162/88-224 g LV Mass Index: 64.62 43-95/49-115 g/m2 LVOT Diam: 1.80 3.0+(-)1.3 cm 2D Systolic Function EF 4C: 54.90 >55% EF 2C: 51.80 >55% LVOT LVOT Pk Leroy: 0.81 LVOT Mn Leroy: 0.57 LVOT VTI: 0.15 LVOT Pk Grad: 3.00 LVOT Mn Grad: 1.00 LVOT Diam: 1.80 LVOT Area: 2.54 Updated in Other Vendor System with Status of Final Timmy Dee MD electronically signed on 08/17/2023 1:20:23 PM with status of Final
== END ==
LOC: HO.CARD 08:49
PROVIDERS: PCP Internal Medicine; Visit Provider Nurse Practitioner Family
DX: R06.02 Shortness of breath (principal); R94.31 Abnormal electrocardiogram [ECG] [EKG]
CPT/HCPCS: 93308

== ENCOUNTER → 2023-08-17 08:52 | Outpatient (BNV) | payer MEDICARE, SELFPAY | PROVIDERS: PCP Internal Medicine; Visit Provider Internal Medicine | DX: R06.02 Shortness of breath (principal) | CPT/HCPCS: 93308 ==

== ENCOUNTER 2023-09-07 12:33 | Outpatient (REF) | payer MEDICARE, SELFPAY ==
[2023-09-07 14:15] LABS: Anion Gap 14 (12-20); Blood Urea Nitrogen 11 mg/dL (9-16); Calcium 9.4 mg/dL (8.4-10.2); Carbon Dioxide 27 mmol/L (22-29); Chloride 99 mmol/L (96-108); Estimated Glomerular Filt Rate > 60; Glucose Random 338 mg/dL (60-115); Sodium 136 mmol/L (135-145)
== END 2023-09-07 12:34 | disposition home or self-care (01) ==
LOC: HO.LAB 12:33
PROVIDERS: Visit Provider Nurse Practitioner Family
DX: R06.02 Shortness of breath (principal)
CPT/HCPCS: 36415; 80048

== ENCOUNTER 2023-09-21 09:40 | Outpatient (AMB) | payer MEDICARE, SELFPAY ==
[2023-09-21 09:46] VITALS: BP 114/72; PULSE 56; BMI 28.2
--- NOTE | 2023-09-21 09:46 | A.OFFVIS_ITS ---
Vital Signs 09/21/23 09:46 Height 5 ft 8 in Weight 185 lb 10.067 oz BMI 28.2 BP 114/72 Blood Pressure Location Rt brachial Position Sitting Pulse 56 Pulse Source Pulse Oximeter Intake Visit Reasons: f/up CTA/ stress echo HS [id number] CTA solo Research Leader Required: No Allergies No Known Allergies Allergy (Verified 09/21/23 09:48) Medication List - Last Reconciled 09/21/23 by Alena Neumann NP-C apixaban (Eliquis) 5 mg PO BID diltiazem HCl CD 240 mg (2 x 120 mg) PO DAILY 90 days metoprolol tartrate 50 mg PO BID HPI HPI f/up CTA/ stress echo HS [id number] CTA solo: Details: Boni is a 68-year-old male with past medical history alcohol use, smoking 1 pack cigarettes per day, paroxysmal atrial fibrillation who reported increasing shortness of breath with activity on last visit. He underwent a CTA of the coronary arteries and an echocardiogram and now presents for follow-up. Today he reports that he still has the shortness of breath with activity. He tells me he continues to smoke a pack of cigarettes per day and now believes this strongly contributes to his symptom. He has been trying to cut back his alcohol use. He has not had any alcohol intake in the last week but he is noticing sleeplessness which he feels is from withdrawal. He does have a congested cough at times which he relates to his smoking. He denies having chest discomfort at rest or with activity. No heart palpitations, lightheadedness, presyncope, syncope, PND, orthopnea or edema. He feels that he may have sleep apnea but does not want a sleep study at this time. No bleeding issues reported. He says he is taking his meds as directed. [facility] Surgical History No pertinent past surgical history Family History Father Heart disease Mother Diabetes Social History Alcohol intake: current Patient Tobacco Use Status: Current everyday Tobacco user Cigarette Packs Per Day: 1 Review of Systems Const All systems reviewed & are unremarkable except as noted in HPI and below ENT Denies dizziness Card Denies chest pain, Denies chest pain at rest, Denies chest pain with activity, Denies rapid heart rate, Denies pedal edema, Denies edema, Denies leg edema, Denies lightheadedness, Denies palpitations, Denies dyspnea, Reports dyspnea on exertion and Denies orthopnea Resp Denies cough, Denies dyspnea and Reports dyspnea on exertion GI Denies hematochezia and Denies change in stool character Musc Denies abnormal gait, Denies limited range of motion, Denies muscle cramps, Denies muscle weakness, Denies numbness, Denies radiating pain into limb, Denies stiffness and Denies tingling Neuro Denies abnormal gait, Denies dizziness, Denies numbness and Denies tingling Endo Denies palpitations Physical Exam Vital Signs: Last Vital Signs Pulse 56 09/21/23 09:46 BP 114/72 09/21/23 09:46 BMI result Body Mass Index 28.2 Const General: cooperative, healthy appearing, comfortable and no acute distress Orientation/consciousness: patient oriented x3 Neck Neck: Yes normal visual inspection Chest Chest palpation & inspection: normal inspection of the chest Resp Effort & Inspection: normal respiratory effort Auscultation: clear to auscultation bilaterally, no crackles, no rales, no rhonchi and no wheezes Cardio Jugular venous distension: no JVD Rate: regular rate Rhythm: regular rhythm Heart sounds: S1 normal heart sound present, S2 normal heart sound present, no gallops, no murmurs and no rubs Neuro General: patient oriented x3 Extrem General: Yes normal to inspection Psych Appearance: grossly normal Mental Status: mental status grossly normal Speech and movement: Normal speech and movement present Assessment & Plan Assessment & Plan (1) PAF (paroxysmal atrial fibrillation): Code(s): I48.0 - Paroxysmal atrial fibrillation Category: Medical Plan: History of paroxysmal atrial fibrillation. Holter monitor done 06/2022 showed atrial fibrillation 96% of the time, average heart rate 94. Echocardiogram done 01/12/2023 shows EF 63%, no valve abnormalities and no regional wall motion abnormalities. He was in sinus rhythm at the time of the echocardiogram. EKG done last visit shows sinus rhythm, rate 62. He denies any recent heart palpitations. Pulse is regular on examination today. He is on diltiazem and metoprolol for heart rate control. He is on Eliquis for anticoagulation. No bleeding issues reported. On last visit reported Drinking 6 alcoholic nips per day- he tells me he is working on cessation and has had none in the last week. Continues to smoke 1 pack of cigarettes per day and is going to try to cut back. He states he may have sleep apnea as he sometimes wakes up with a startle. Offered home sleep study and he declines. Continue current meds without change. (2) Coronary artery calcification: Code(s): I25.10 - Atherosclerotic heart disease of [place] coronary artery without angina pectoris; I25.84 - Coronary atherosclerosis due to calcified coronary lesion Category: Medical Plan: Prior chest CT with coronary artery calcifications. He underwent a pharmacological nuclear stress test on 01/15/2023 showing normal myocardial perfusion imaging. Echocardiogram as above with normal EF no regional wall motion abnormalities. On last visit reported increasing shortness of breath with activity. This could be explained by his smoking 1 pack of cigarettes per day however EKG done last visit shows normal sinus rhythm with new T-wave inversions inferiorly and V4 through V6. He tells me that his father of an MS at his age. Cardiac risk factors of smoking, history, sedentary. He had an echocardiogram done 08/17/2023 showing EF 60-65%, no regional wall motion abnormalities. A CTA of the coronary arteries was done on 09/15/2023 showing calcium score 430, mild proximal LAD stenosis, left circumflex moderate mixed plaque in the proximal to mid section. Test results reviewed with him in detail. Diagnosis of nonobstructive coronary artery disease reviewed. He does not have clear anginal symptoms at this time. His shortness of breath is likely pulmonary. Will medically manage at this time. He has not on aspirin as he is on Eliquis. Is on metoprolol. Labs done 07/09/2022 had shown LDL 89. At this time will start on atorvastatin 20 mg daily. Need for fasting lipid profile and LFTs in 2 months reviewed with him. Signs and symptoms of angina reviewed. Cardiology follow-up in 6 months, sooner if needed. He will Further discuss shortness of breath with his PCP. (3) Smoking: Comment: 1 pack per day, 01/2023 Code(s): F17.200 - Nicotine dependence, unspecified, uncomplicated Category: Social Hx Plan: Continues to smoke 1 pack of cigarettes per day. He does have expiratory wheezes noted on examination. He reports intermittent cough with sputum. He likely has COPD related to his chronic smoking. He tells me he has used his wifes inhaler at times. Will send this note to his PCP. Need for smoking cessation was discussed with him. (4) Alcohol use: Code(s): Z78.9 - Other specified health status Category: Social Hx Plan: On last visit He tells me he drinks a few nips daily. He says he is not addicted and could stop at any time. He has not had any alcohol in the last week. Is noticing difficulty sleeping which he believes is part of his withdrawal. Previously discuss the need for sensation as it can affect his heart with increased AFib, cardiomyopathy. (5) Agatston coronary artery calcium score greater than 400: Comment: Coronary calcium score 430 on 09/15/2023 Code(s): R93.1 - Abnormal findings on diagnostic imaging of heart and coronary circulation Category: Medical Plan: As above Plan Time spent on chart review, documentation, interview assessment Orders: Orders Liver Panel 2 Months I25.10 - Atherosclerotic heart disease of [place] coronary artery without angina pectoris, I25.84 - Coronary atherosclerosis due to calcified coronary lesion Lipid Panel 2 Months I25.10 - Atherosclerotic heart disease of [place] coronary artery without angina pectoris, I25.84 - Coronary atherosclerosis due to calcified coronary lesion Medications: New atorvastatin 20 mg PO BEDTIME 90 tabs 1RF Coding Level of Care Code Est Pt Level 4 (31883) Diagnoses PAF (paroxysmal atrial fibrillation) I48.0 Coronary artery calcification I25.10; I25.84 Smoking F17.200 Alcohol use Z78.9 Agatston coronary artery calcium score greater than 400 R93.1 Time Spent (min) 28
== END 2023-09-21 10:16 | disposition home or self-care (01) ==
PROVIDERS: PCP Internal Medicine; Visit Provider Nurse Practitioner Family
DX: I48.0 Paroxysmal atrial fibrillation (principal); I25.10 Atherosclerotic heart disease of native coronary artery without angina pectoris; I25.84 Coronary atherosclerosis due to calcified coronary lesion; F17.200 Nicotine dependence, unspecified, uncomplicated; Z78.9 Other specified health status; R93.1 Abnormal findings on diagnostic imaging of heart and coronary circulation
CPT/HCPCS: 99214

== ENCOUNTER → 2023-09-21 09:40 | Outpatient (BNVA) | payer MEDICARE, SELFPAY | PROVIDERS: PCP Internal Medicine; Visit Provider Nurse Practitioner Family | DX: I48.0 Paroxysmal atrial fibrillation (principal); I25.10 Atherosclerotic heart disease of native coronary artery without angina pectoris; I25.84 Coronary atherosclerosis due to calcified coronary lesion; R93.1 Abnormal findings on diagnostic imaging of heart and coronary circulation; F17.210 Nicotine dependence, cigarettes, uncomplicated; Z78.9 Other specified health status | CPT/HCPCS: 99212 ==

== ENCOUNTER 2023-12-28 12:49 | Outpatient (REF) | payer MEDICARE, SELFPAY ==
--- NOTE | ~2023-12-28 | CT_ITS ---
EXAMINATION: CT LOW-DOSE SCREENING CHEST WITHOUT CONTRAST CLINICAL INFORMATION: Nicotine dependence, cigarettes, uncomplicated. The patient is a current smoker with a 50 pack-year history of smoking. COMPARISON: CT chest September 25, 2022. X-ray chest March 19, 2017. TECHNIQUE: Multidetector volumetric CT imaging of the chest is performed on a Siemens SOMATOM Definition scanner without contrast using low dose technique. Additional 2D coronal and sagittal reformatted images and axial 3D maximum intensity projection (MIP) images are generated on the CT workstation. This CT examination was performed using dose optimization techniques as appropriate, variously including the following: *Automated exposure control. *Adjustment of mA and/or kV according to patient size (this includes techniques or standardized protocols for targeted exams where dose is matched to indication/reason for exam; i.e. extremities or head). *Use of iterative reconstruction technique. TOTAL EXAM DLP: 53 mGy-cm. CTDIvol: 1.47 mGy. FINDINGS: PULMONARY NODULES: There are some scattered densities seen that do not really have the appearance of nodules. The new linear area at the right apex seen previously is unchanged (5:90 compare prior 5:83). A 3 mm pleural-based right upper lobe nodule is unchanged (5:105 compare prior 5:98). Linear area of probable scarring in the left upper lobe posteromedially is unchanged (5:130 compare prior 5:120). Another linear opacity in the left upper lobe with a nodular component is unchanged (5:135 and 137 compare prior 5:134 and 136). There are new areas of band-like atelectasis seen in both upper lobes (5:174 and 167). There is no new or suspicious lung mass seen. LUNGS: Lungs bilaterally symmetrically expanded. There is mild emphysematous changes throughout the lungs along with marked bronchial thickening. No effusion or pneumothorax. Central airways patent. MEDIASTINUM: No mediastinal, hilar or axillary adenopathy or free fluid collection. CORONARY ARTERY CALCIFICATION: Mild. THYROID GLAND: Unremarkable to the extent seen. CARDIOVASCULAR STRUCTURES: Aortic and heart size normal. No pericardial effusion. CHEST WALL/AXILLA: Unremarkable. UPPER ABDOMEN: There is hepatic steatosis. Patient is status post cholecystectomy. Chronic calcifications are present in the pancreas. Some subcapsular splenic calcification is seen. OSSEOUS STRUCTURES: No suspicious focal findings. CT/CT lung screening IMPRESSION: 1. No suspicious lung nodules are seen. 2. There are some scattered new as well as old densities seen that do not really have the appearance of nodules. ASSESSMENT: 1. Lung-RADS Category 2: Benign appearance or behavior of nodules. N/A. 2. Lung-RADS Category S: Positive. There are clinically significant or potentially clinically significant findings not related to the lungs requiring further workup. RECOMMENDATION: Continued routine annual low-dose CT lung screening in 1 year is recommended. An order for CT CHEST LOW DOSE CANCER SCREENING ([id number]) can be placed. Electronically signed by: Carl Stovall MD 02/07/2024 06:45 PM EDT
== END 2023-12-28 12:50 | disposition home or self-care (01) ==
LOC: HO.CT 12:49
PROVIDERS: Visit Provider Physician Assistant Medical
DX: Z12.2 Encounter for screening for malignant neoplasm of respiratory organs (principal); F17.210 Nicotine dependence, cigarettes, uncomplicated
CPT/HCPCS: 71271

== ENCOUNTER 2024-01-14 11:11 | Outpatient (REF) | payer MEDICARE, SELFPAY ==
[2024-01-14 11:16] LABS: MANUAL DIFF FLAG NO
[2024-01-14 11:20] LABS: Appearance Urine Clear; Color Urine Yellow; Glucose Urine UA >=1000 mg/dL (Negative); Leukocyte Esterase Urine Negative (Negative); Nitrite Urine Negative (Negative); PH 5.5 (5.0-9.0); Specific Gravity - Urine >= 1.030 (1.005-1.025); UMIC TRIGGER UACC YES; Urine Blood Negative (Negative); Urine Ketones 15 mg/dL (Negative); Urine Protein 30 (1+) mg/dL (Neg-Trace)
[2024-01-14 11:23] LABS: Bacteria Urine None Seen (None Seen); Hyaline Casts Urine 0-2 /LPF (0-2); RBC Urine 0-2 /HPF (0-2); Squamous Epithelial Cell Urine 0-2 /HPF (0-2); WBC Urine 0-5 /HPF (0-5)
[2024-01-14 11:25] LABS: Basophils Absolute Auto 0.1 X10*3/uL (0.0-0.2); Eosinophils Absolute Auto 0.1 X10*3/uL (0.0-0.4); Hematocrit 47.1 % (42.0-52.0); Hemoglobin 16.9 g/dl (14.0-18.0); Imm Gran Abs Auto 0.03 X10*3/uL (0.00-0.03); Imm Gran Pct Auto 0.6 % (0.0-0.4); Lymphocytes Absolute Auto 1.6 X10*3/uL (1.2-4.9); Lymphocytes Percent Auto 29.6 % (20-40); Mean Corpuscular HGB Conc 35.9 g/dl (31.0-36.0); Mean Corpuscular Hemoglobin 33.9 pg (27.0-33.0); Mean Corpuscular Volume 94.4 fL (80.0-98.0); Mean Platelet Volume 10.6 fL (9.4-12.4); Monocytes Absolute Auto 0.7 X10*3/uL (0.1-1.2); Monocytes Percent Auto 13.4 % (2-11); Neutrophils Absolute Auto 2.9 x10*3/uL (2.0-8.3); Neutrophils Percent Auto 54.4 % (45-73); Platelet Count 220 X10*3/uL (160-400); Red Blood Count 4.99 X10*6/uL (4.60-5.80); Red Cell Distribution Width 13.6 % (11.0-16.0); White Blood Count 5.2 X10*3/uL (4.8-10.8)
[2024-01-14 11:42] LABS: Alanine Aminotransferase 44 U/L (0-40); Albumin Level 3.8 g/dL (3.5-5.0); Alkaline Phosphatase 70 U/L (39-117); Anion Gap 13 (12-20); Aspartate Amino Transferase 34 U/L (5-37); Bilirubin Total 0.7 mg/dL (0.0-1.0); Blood Urea Nitrogen 10 mg/dL (9-16); Calcium 9.3 mg/dL (8.4-10.2); Carbon Dioxide 27 mmol/L (22-29); Chloride 105 mmol/L (96-108); Cholesterol 151 mg/dL (<200); Estimated Glomerular Filt Rate > 60; Glucose Fasting 287 mg/dL (60-99); HDL Cholesterol 57 mg/dL (>40); LDL Cholesterol Calculated 65 mg/dL (<100); Potassium 3.4 mmol/L (3.3-5.1); Sodium 142 mmol/L (135-145); Total Protein 7.1 g/dL (6.5-8.0); Triglycerides 149 mg/dL (<150)
[2024-01-14 12:04] LABS: PSA,Total (Free>4and<10) 0.39 ng/mL (0.00-4.00)
== END 2024-01-14 11:12 | disposition home or self-care (01) ==
LOC: HO.LNP 11:11
PROVIDERS: Visit Provider Internal Medicine
DX: Z00.00 Encounter for general adult medical examination without abnormal findings (principal); E78.00 Pure hypercholesterolemia, unspecified; I10 Essential (primary) hypertension; Z12.5 Encounter for screening for malignant neoplasm of prostate
CPT/HCPCS: 80053; 80061; 81001; 84153; 85025

== ENCOUNTER → 2024-03-03 10:55 | Day surgery (SDC) | payer MEDICARE, SELFPAY ==
[2024-03-01 09:32] VITALS: BMI 26.1
--- NOTE | 2024-03-01 14:43 | P.CONAN_ITS ---
HPI - Anesthesia Eval Consult details Narrative: Pt transferred to ER for afib RVR 68yo M for Colonoscopy [place] [facility] [place]ib (eliquis), nonobstructive CAD Last office visit 08/2023. PT reported FERREIRA r/t smoking. Also attempting ETOH cessation (was drinking 6 nips daily prior). Was stable for routine 6 month f/u. [facility] Active Problems Active Problems: All Active Problems Hepatic steatosis (Acute) Agatston coronary artery calcium score greater than 400 (Acute) Shortness of breath (Acute) Abnormal EKG (Acute) Alcohol use (Acute) Atrial fibrillation with rapid ventricular response (Acute) Nicotine dependence, cigarettes, uncomplicated (Acute) Coronary artery calcification (Acute) PAF (paroxysmal atrial fibrillation) (Acute) Past Medical History Medical History COPD (chronic obstructive pulmonary disease) Alcohol abuse, in remission Nicotine dependence, cigarettes, uncomplicated Coronary artery calcification PAF (paroxysmal atrial fibrillation) Family History Family History Father Heart disease Mother Diabetes Surgical History Surgical History History of surgery Hx of cholecystectomy Social History Social History Alcohol intake: current Alcohol intake frequency: former alcohol drinker Patient Tobacco Use Status: Current everyday Tobacco user Tobacco use type: Cigarette Cigarette Packs Per Day: 1 Cigarettes Per Day: 20.0 Meds Allergies Allergy/AdvReac Type Severity Reaction Status Date / Time No Known Allergies Allergy Verified 03/03/24 12:56 Exam Height,Weight and Vital Signs: Height 5 ft 8 in Weight 77.734 kg Pertinent Lab Results Pertinent Lab Results: Laboratory Tests 01/14/24 07:45 WBC 5.2 Hgb 16.9 Hct 47.1 Plt Count 220 Sodium 142 Potassium 3.4 Chloride 105 Carbon Dioxide 27 BUN 10 Creatinine 0.98 Narrative Narrative: Per 08/2023 cardiology office visit: Echocardiogram done 08/17/2023 showing EF 60-65%, no regional wall motion abnorma lities. CTA of the coronary arteries was done on 09/15/2023 showing calcium score 430, mild proximal LAD stenosis, left circumflex moderate mixed plaque in the proximal to mid section Holter monitor done 06/2022 showed atrial fibrillation 96% of the time, average heart rate 94. EKG done last visit shows sinus rhythm, rate 62 Assessment and Plan Assessment Anesthesia Assessment: Chart Reviewed
[2024-03-03 11:31] VITALS: BMI 25.5
[2024-03-03 11:45] VITALS: BP 94/60; PULSE 88; RESP 24; TEMP 36.1; O2SAT 94
--- NOTE | 2024-03-03 11:53 | ECG_ITS ---
Test Reason : RAPID AFIB Blood Pressure : / mmHG Vent. Rate : 133 BPM Atrial Rate : 344 BPM P-R Int : 000 ms QRS Dur : 070 ms QT Int : 338 ms P-R-T Axes : 000 046 016 degrees QTc Int : 503 ms Atrial fibrillation with rapid ventricular response Abnormal ECG No previous ECGs available Referred By: Belinda Jade Electronically Signed By:JOSE ALTMAN MD
--- NOTE | 2024-03-03 11:57 | PC.NURSE ---
patient was in rapid afib up to the 160s. denies cp. sob upon exerction. patient states he gets sob at baseline because of his copd. used an inhaler prior to arrival. patient did not take his diltiazem or metoprolol this morning. while texting anesthesia md purcell came by the bedside and the patient converted on his own. nsr
--- NOTE | 2024-03-03 12:02 | PC.NURSE ---
patient getting an ekg
[2024-03-03 12:04] VITALS: PULSE 159
--- NOTE | 2024-03-03 12:07 | PC.NURSE ---
md pruett by the bedside
--- NOTE | 2024-03-03 12:10 | PC.NURSE ---
md pruett by bedside evaluating patient. lr wide open per md pruett. bolus of 500ml. hr159 and bp 84/58
[2024-03-03] MEDS: Lactated Ringers 1,000 ML 100 ML IVCONT (12:22)
[2024-03-03 12:24] VITALS: BP 95/73; PULSE 143; O2SAT 96
[2024-03-03] MEDS: Digoxin 0.5 MG/2 ML AMPUL IVPUSH (12:31)
[2024-03-03 12:32] LABS: MANUAL DIFF FLAG NO
[2024-03-03 12:34] LABS: Basophils Absolute Auto 0.1 X10*3/uL (0.0-0.2); Eosinophils Absolute Auto 0.1 X10*3/uL (0.0-0.4); Eosinophils Percent Auto 1.5 % (0-4); Hematocrit 46.4 % (42.0-52.0); Imm Gran Abs Auto 0.04 X10*3/uL (0.00-0.03); Imm Gran Pct Auto 0.5 % (0.0-0.4); Lymphocytes Absolute Auto 1.8 X10*3/uL (1.2-4.9); Mean Corpuscular HGB Conc 34.5 g/dl (31.0-36.0); Mean Corpuscular Hemoglobin 32.3 pg (27.0-33.0); Mean Corpuscular Volume 93.5 fL (80.0-98.0); Mean Platelet Volume 9.8 fL (9.4-12.4); Monocytes Absolute Auto 0.8 X10*3/uL (0.1-1.2); Monocytes Percent Auto 9.9 % (2-11); Neutrophils Absolute Auto 5.2 x10*3/uL (2.0-8.3); Neutrophils Percent Auto 65.1 % (45-73); Platelet Count 231 X10*3/uL (160-400); Red Blood Count 4.96 X10*6/uL (4.60-5.80); Red Cell Distribution Width 13.2 % (11.0-16.0); White Blood Count 8.1 X10*3/uL (4.8-10.8)
[2024-03-03 12:37] VITALS: BP 96/70; PULSE 144; RESP 18; O2SAT 97
[2024-03-03 12:41] VITALS: BP 113/65; PULSE 136; RESP 18; O2SAT 97
[2024-03-03 12:54] LABS: Anion Gap 14 (12-20); Blood Urea Nitrogen 13 mg/dL (9-16); Calcium 9.3 mg/dL (8.4-10.2); Carbon Dioxide 26 mmol/L (22-29); Chloride 104 mmol/L (96-108); Creatinine Clr Calc Pharmacy 66.9; Estimated Glomerular Filt Rate > 60; Glucose Fasting 148 mg/dL (60-99); Magnesium 1.6 mg/dL (1.6-2.6); Potassium 4.8 mmol/L (3.3-5.1); Sodium 139 mmol/L (135-145)
--- NOTE | 2024-03-03 12:57 | PC.NURSE ---
no change with heart rate after digoxin given. upon arrival to er patient went back in nsr for about a minute then went back inot rapid afib hr 140s. no other changes. bolused 500ml per md pruett of lr and then slowed the rate down. calling patients friend faustina per his request.
[2024-03-03 13:09] LABS: Thyroid Stimulating Hormone 1.23 uIU/mL (0.32-4.0)
== END ==
PROVIDERS: Internal Medicine Cardiovascular Disease; Visit Provider Internal Medicine Gastroenterology
DX: Z12.11 Encounter for screening for malignant neoplasm of colon (principal); Z53.09 Procedure and treatment not carried out because of other contraindication; I48.0 Paroxysmal atrial fibrillation; Z79.01 Long term (current) use of anticoagulants
CPT/HCPCS: 36415; 80048; 83735; 84443; 85025; 93005; J1160

== ENCOUNTER 2024-03-03 12:49 | Emergency (ER) | payer MEDICARE, SELFPAY ==
[2024-03-03 12:54] VITALS: BP 109/59; PULSE 108; RESP 16; TEMP 37.2; O2SAT 97; BMI 16.9
[2024-03-03 12:59] VITALS: BP 109/59; PULSE 123
[2024-03-03] MEDS: dilTIAZem HCL 50 MG/10 ML VIAL 10 MG IVPUSH (12:59)
--- NOTE | 2024-03-03 13:03 | ECG_ITS ---
Test Reason : afib Blood Pressure : / mmHG Vent. Rate : 086 BPM Atrial Rate : 000 BPM P-R Int : 000 ms QRS Dur : 076 ms QT Int : 394 ms P-R-T Axes : 000 039 038 degrees QTc Int : 471 ms Normal sinus rhythm with Atrial fibrillation Septal infarct , age undetermined Abnormal ECG When compared with ECG of 03-MAR-2024 11:56, Intermittent NSR present Vent. rate has decreased BY 47 BPM Septal infarct is now Present Non-specific change in ST segment in Inferior leads Nonspecific T wave abnormality now evident in Anterior leads Referred By: Carl Hardy Electronically Signed By:JOSE ALTMAN MD
--- NOTE | 2024-03-03 13:28 | PM.CNCAR ---
History of Present Illness History of Present Illness Date of Service: 03/03/24 Requesting physician: Belinda Jade Consult reason: atrial fibrillation Chief complaint: AFIB Narrative: I was consulted urgently to see Boni in cardiology consultation today in the preoperative area as patient developed atrial fibrillation rapid ventricular response with low blood pressure. Patient known to our service with prior history of alcohol abuse, chronic smoking, nonobstructive CAD and paroxysmal atrial fibrillation. He came for an outpatient elective colonoscopy and has not taken his Eliquis for about 3 days. Patient said he took his usual prep yesterday and loose bowel movements. He came today in sinus rhythm subsequently converted into atrial flutter with rapid ventricular response and subsequently developed short of breath but he does have chronic shortness of breath with exertion. For that reason he has been worked up from cardiac perspective when he has normal LV ejection fraction by echocardiogram and nonobstructive CAD by coronary CTA although he was elevated calcium score. Patient complains of shortness of breath right now. His blood pressure dropped into the 80s. Patient was then referred to the emergency room for further management. IV fluid was turned on. Patient's blood pressure improved in the emergency room and subsequently was given IV Cardizem push with conversion to sinus rhythm spontaneously. Patient feels a lot bit better. Colonoscopy has been postponed for now. Review of Systems Constitutional: Constitutional: Reports no additional constitutional complaints Cardiovascular: Cardiovascular: Denies chest pain, Denies leg edema, Reports lightheadedness, Denies Loss of Consciousness, Reports palpitations and Reports dyspnea Respiratory: Respiratory: Reports cough and Reports dyspnea Gastrointestinal: Gastrointestinal: Reports no additional gastrointestinal complaints Musculoskeletal: Musculoskeletal: Reports no additional musculoskeletal complaints Integumentary/Breasts: Skin/Breast: Reports system reviewed and no additional complaints, except as docu Neurologic: Reports system reviewed and no additional complaints, except as documented Endocrine: Endocrine: Reports no additional endocrine complaints and Reports palpitations PMFSH Past Medical History Medical History COPD (chronic obstructive pulmonary disease) Alcohol abuse, in remission Nicotine dependence, cigarettes, uncomplicated Coronary artery calcification PAF (paroxysmal atrial fibrillation) Family History Family History Father Heart disease Mother Diabetes Surgical History Surgical History History of surgery Hx of cholecystectomy Social History Social History Alcohol intake: current Alcohol intake frequency: former alcohol drinker Patient Tobacco Use Status: Current everyday Tobacco user Tobacco use type: Cigarette Cigarette Packs Per Day: 1 Cigarettes Per Day: 20.0 Advance Directives: No Advance Directives Information Provided: No Do you have a plan to hurt others: No Plan Meds Allergies Allergy/AdvReac Type Severity Reaction Status Date / Time No Known Allergies Allergy Verified 03/03/24 12:56 Physical Exam Vital Signs: Vital Signs: Last Vital Signs Temp 98.9 F 03/03/24 12:54 Pulse 123 H 03/03/24 12:59 Resp 16 03/03/24 12:54 BP 109/59 L 03/03/24 12:59 Pulse Ox 97 03/03/24 12:54 O2 Del Method Nasal Cannula 03/03/24 12:54 Oxygen Flow Rate 2 03/03/24 12:54 BMI result Body Mass Index 16.9 Const: General: cooperative, alert, awake and in distress mild and respiratory Nutritional Appearance: overweight Orientation/consciousness: patient oriented x3 HEENT: Head: Yes normocephalic and Yes atraumatic Neck: Neck: Yes trachea midline, Yes supple and Yes no JVD Resp: Effort & Inspection: normal respiratory effort Auscultation: no crackles, no wheezes and diminished lung sounds Cardio: Jugular venous distension: no JVD Rate: tachycardic Heart sounds: S1 normal heart sound present, S2 normal heart sound present, no click, no gallops, no murmurs and no rubs GI: Auscultation: normal bowel sounds Skin: General skin exam: no rashes or lesions noted Neuro: General: patient oriented x3 and no focal motor deficits Extrem: General: Yes no clubbing, cyanosis or edema Objective Labs and Meds Lab results: EKG shows atrial flutter with rapid ventricular response. Assessment and Plan (1) Atrial flutter with rapid ventricular response: Status: Acute Atrial flutter with rapid ventricular response, symptomatic with hypotension, improved with IV fluids most suggestive of hypovolemia from colonoscopy prep. Patient converted to sinus rhythm after IV Cardizem but has had longstanding history of atrial fibrillation which has been difficult control. At this point time I would start him on flecainide 100 mg b.i.d. for rhythm control and discontinue metoprolol but continue Cardizem as AV mima blocking agent which is require inpatient starting on flecainide therapy. I will restart Eliquis 5 mg b.i.d. and postpone colonoscopy for now. Continue full oral anticoagulation with Eliquis. Continue treatment of nonobstructive CAD with high-intensity statin therapy. He has stopped drinking alcohol for 2 months and this was applauded and have advised him to abstain from alcohol use as well as any other stimulants. Also advised him to discontinue nicotine use. He said he has been trying to do the same. Continue to optimize pulmonary function. If patient remains stable and blood pressures improved can be discharged from the emergency room to home. Will set up for outpatient follow-up. Greater than 40 minutes was spent in coordinating his care Will follow in few weeks in the clinic. Procedures Date of Service Date of Service: 03/03/24
[2024-03-03 13:36] LABS: Troponin-I High Sensitivity < 2.7 ng/L (<3.5-35.0)
[2024-03-03] MEDS: Flecainide Acetate 50 MG TABLET 100 MG PO (13:46)
[2024-03-03] MEDS: Apixaban 5 MG TABLET PO (13:46)
[2024-03-03 14:32] VITALS: BP 112/79; PULSE 104; RESP 21; TEMP 37; O2SAT 96
[2024-03-03 16:00] VITALS: PULSE 116
[2024-03-03 16:40] VITALS: BP 131/76; PULSE 110; RESP 24; O2SAT 98
--- NOTE | 2024-03-03 16:58 | ED_ITS ---
HPI - General Adult General Chief complaint: General Medical Stated complaint: AFIB Time Seen by Provider: 03/03/24 12:53 Source: patient Mode of arrival: other (stretcher) Limitations: no limitations History of Present Illness ED Provider: Dr. Hardy HPI narrative: Patient is a 68 yo male with history of PAF that has been difficult to control who presents with PAF in surgical suite prior to his colonoscopy. He was seen by Dr. Pascual prior to coming to the ED Related Data Previous Rx's ?Medication ?Instructions ?Recorded metoprolol tartrate 50 mg tablet 50 mg PO BID #180 tabs 04/01/23 diltiazem HCl 120 mg 240 mg (2 x 120 mg) PO DAILY 90 07/02/23 capsule,extended release 24 hr days #180 caps apixaban 5 mg tablet (Eliquis) 5 mg PO BID #180 tabs 09/14/23 atorvastatin 20 mg tablet 20 mg PO BEDTIME #90 tabs 09/21/23 flecainide 100 mg tablet 100 mg PO Q12H #30 tabs 03/03/24 Allergies Allergy/AdvReac Type Severity Reaction Status Date / Time No Known Allergies Allergy Verified 03/03/24 12:56 Review of Systems Review of Systems: Yes all other systems are reviewed and are negative Neurologic: Denies Sensory deficit (Neuro) PMFSH Past Medical History Medical History COPD (chronic obstructive pulmonary disease) Alcohol abuse, in remission Nicotine dependence, cigarettes, uncomplicated Coronary artery calcification PAF (paroxysmal atrial fibrillation) Surgical History History of surgery Hx of cholecystectomy Family History Family History Father Heart disease Mother Diabetes Social History Social History Alcohol intake: current Alcohol intake frequency: former alcohol drinker Patient Tobacco Use Status: Current everyday Tobacco user Tobacco use type: Cigarette Cigarette Packs Per Day: 1 Cigarettes Per Day: 20.0 Physical Exam ED Vital Signs: Vital Signs - 24 hr 03/03/24 12:54 03/03/24 12:59 03/03/24 14:32 Temperature 98.9 F 98.6 F Pulse Rate 108 H 123 H 104 H Pulse Rate [Monitor] Respiratory Rate 16 21 H Blood Pressure 109/59 L 109/59 L 112/79 Pulse Oximetry 97 96 Oxygen Delivery Method Nasal Cannula Room Air 03/03/24 16:00 03/03/24 16:40 Temperature Pulse Rate 110 H Pulse Rate [Monitor] 116 H Respiratory Rate 24 H Blood Pressure 131/76 Pulse Oximetry 98 Oxygen Delivery Method Room Air BMI result Body Mass Index 16.9 Const Other: male looking older than stated age Nutritional Appearance: average body habitus Orientation/consciousness: oriented to person and patient oriented x3 Limitations: no limitations HENMT Head: Yes normal to inspection Ears: external ears normal General nose exam: Normal external nose present Mouth: Normal oral and palatal mucosa present and oropharynx normal Throat: Yes posterior oropharynx normal Eyes General: appearance normal, both eyes and all related structures Neck Neck: Yes normal visual inspection Chest Chest palpation & inspection: normal inspection of the chest Resp Auscultation: clear to auscultation bilaterally Cardio Other: tachycardia, IRRR. GI Inspection: Yes normal to inspection Palpation (GI): Soft to palpation, nontender and No hepatosplenomegaly present Auscultation: normal bowel sounds General: Yes no CVA tenderness Back/Spine/Pelvis Back: no CVA tenderness Skin General skin exam: no rashes or lesions noted Neuro General: oriented to person and patient oriented x3 Cranial nerves: Yes CN's II-XII intact bilaterally Motor exam (neuro): 5/5 motor strength present throughout Sensory Exam: No Sensory deficit (Neuro) Extrem General: Yes normal to inspection Psych Appearance: grossly normal Course Reevaluation(s) Reevaluation #1: Patient received IV dig, IV cardizem, and oral flecanide. Rate improved but in and out to atrial fibrillation, dicussed with Dr. Pascual, will stop metoprolol and start flecanide and dc home. Time: 17:05 Reevaluation #2: I spent 40 minutes of critical care, with interventions, assessments, speaking to patient, consultants, and family. Time: 17:05 Medications Administered Discontinued Medications Generic Name Dose Route Start Last Admin Trade Name Freq PRN Reason Stop Dose Admin Apixaban 5 mg 03/03/24 13:07 03/03/24 13:46 Apixaban 5 Mg Tablet PO 03/03/24 13:08 5 mg ONCE ONE Administration Diltiazem HCl 10 mg 03/03/24 12:53 03/03/24 12:59 Diltiazem Hcl 50 Mg/10 Ml Vial IVPUSH 03/03/24 12:54 10 mg STAT STA Administration Flecainide Acetate 100 mg 03/03/24 13:07 03/03/24 13:46 Flecainide Acetate 50 Mg Tablet PO 03/03/24 13:08 100 mg ONCE ONE Administration Medical Decision Making Differential Diagnosis Differential Diagnoses: The differential diagnosis associated with the presentation includes (rapid atrial fibrillation) Admission/Observation Consideration of admission/observation: Escalation of care including admission/observation considered (upon arrival patient was considered for admission) Consult Healthcare Provider Management of the patient was discussed with: Railway Engineer (Dr. Pascual cardiology) Lab Data Labs: Lab Results 03/03/24 Range/Units 13:05 Troponin I High Sens < 2.7 (<3.5-35.0) ng/L Independent Interpretation I performed an independent interpretation of an: EKG (atrial flutter rate [address] or twave changes) External Record Review External record reviewed: Outpatient record Chronic Conditions Patient?s care impacted by: Hypertension Discharge Plan Discharge Clinical Impression: PAF (paroxysmal atrial fibrillation) Patient Disposition: Home, Self-Care Instructions: A-fib (Atrial Fibrillation) (ED) Prescriptions: New flecainide 100 mg tablet 100 mg PO Q12H Qty: 30 0RF No Action metoprolol tartrate 50 mg tablet 50 mg PO BID Qty: 180 5RF diltiazem HCl 120 mg capsule,extended release 24hr 240 mg PO DAILY 90 Days Qty: 180 3RF Eliquis 5 mg tablet 5 mg PO BID Qty: 180 3RF atorvastatin 20 mg tablet 20 mg PO BEDTIME Qty: 90 1RF Referrals: Hilario Pascaul MD [Physician] - 3 days Print Language: Belarusian
[2024-03-03 17:35] VITALS: BP 129/77; PULSE 106; RESP 18; TEMP 36.6; O2SAT 98
== END 2024-03-03 17:36 | disposition home or self-care (01) ==
PROVIDERS: Emergency Provider Emergency Medicine; PCP Internal Medicine
DX: I48.0 Paroxysmal atrial fibrillation (principal); Z79.01 Long term (current) use of anticoagulants
CPT/HCPCS: 36415; 84484; 93005; 96374; 99284

== ENCOUNTER → 2024-03-03 13:14 | Outpatient (BNV) | payer MEDICARE, SELFPAY | PROVIDERS: Emergency Provider Emergency Medicine; PCP Internal Medicine; Visit Provider Internal Medicine Cardiovascular Disease | DX: I48.92 Unspecified atrial flutter (principal) | CPT/HCPCS: 93010; 99283 ==

== ENCOUNTER → 2024-03-14 09:52 | Outpatient (REF) | payer MEDICARE, SELFPAY ==
--- NOTE | 2024-03-14 10:02 | HM_ITS ---
* Total monitoring time 2 days. * Underlying rhythm is sinus with an average rate of 80/Min. * Rare supraventricular ectopy. * Rare ventricular ectopy. * No significant pauses or high-grade AV blocks. * No patient markers or diary events. MTDD
== END ==
LOC: HO.CARD 09:52
PROVIDERS: PCP Internal Medicine; Visit Provider Internal Medicine Cardiovascular Disease
DX: I48.91 Unspecified atrial fibrillation (principal)
CPT/HCPCS: 93242

== ENCOUNTER → 2024-03-14 10:02 | Outpatient (BNV) | payer MEDICARE, SELFPAY | PROVIDERS: PCP Internal Medicine; Visit Provider Internal Medicine | DX: I47.10 Supraventricular tachycardia, unspecified (principal) | CPT/HCPCS: 93227 ==

== ENCOUNTER 2024-03-23 14:26 | Outpatient (AMB) | payer MEDICARE, SELFPAY ==
[2024-03-23 14:29] VITALS: BP 114/72; PULSE 140; BMI 26.2
--- NOTE | 2024-03-23 14:29 | A.OFFVIS_ITS ---
Vital Signs 03/23/24 14:29 Height 5 ft 8 in Weight 172 lb 6.424 oz BMI 26.2 BP 114/72 Blood Pressure Location Lt brachial Position Sitting Pulse 140 H Pulse Source Monitor Intake Visit Reasons: r/s 03/20/24 6 mos followup Solutions Sales Executive Required: No Allergies No Known Allergies Allergy (Verified 03/23/24 14:31) Medication List - Last Reconciled 03/23/24 by Alena Neumann NP-C albuterol sulfate 90 mcg/actuation inhalation apixaban (Eliquis) 5 mg PO BID atorvastatin 20 mg PO BEDTIME budesonide-formoterol 160-4.5 mcg/actuation (Symbicort) inhalation diltiazem HCl CD 240 mg (2 x 120 mg) PO DAILY 90 days flecainide 100 mg PO Q12H metoprolol tartrate 50 mg PO BID HPI HPI r/s 03/20/24 6 mos followup: Details: Boni is a 68-year-old male with past medical history alcohol use, smoking 1 pack cigarettes per day, paroxysmal atrial fibrillation, coronary artery calcifications on CT scan who recently came for a colonoscopy and was initially in sinus rhythm then went into atrial flutter. He was seen by Dr. Pascual and sent to the emergency room. He was started on flecainide 100 mg b.i.d., metoprolol was stopped. He was continued on diltiazem. Today he presents for follow-up. Today he reports that he has been feeling well with no concerning symptoms. When asked he does admit to some shortness of breath when walking but states this is how he usually is. He has had no recent changes in how he feels. He tells me he continues to smoke a pack of cigarettes per day and now believes this strongly contributes to his symptom. He has stopped all alcohol use. He denies having chest discomfort at rest or with activity. No heart palpitations, lightheadedness, presyncope, syncope, PND, orthopnea or edema. He previously told me that he feels he may have sleep apnea but does not want a sleep study. No bleeding issues reported. He says he is taking his meds as directed. [facility] Medical History COPD (chronic obstructive pulmonary disease) Alcohol abuse, in remission Nicotine dependence, cigarettes, uncomplicated Coronary artery calcification PAF (paroxysmal atrial fibrillation) Surgical History History of surgery Hx of cholecystectomy Family History Father Heart disease Mother Diabetes Social History Alcohol intake: current Alcohol intake frequency: former alcohol drinker Patient Tobacco Use Status: Current everyday Tobacco user Tobacco use type: Cigarette Cigarette Packs Per Day: 1 Cigarettes Per Day: 20.0 Review of Systems Const All systems reviewed & are unremarkable except as noted in HPI and below ENT Denies dizziness Card Denies chest pain, Denies chest pain at rest, Denies chest pain with activity, Denies rapid heart rate, Denies pedal edema, Denies edema, Denies leg edema, Denies lightheadedness, Denies palpitations, Reports dyspnea, Denies dyspnea on exertion and Denies orthopnea Resp Denies cough, Reports dyspnea and Denies dyspnea on exertion GI Denies hematochezia and Denies change in stool character Musc Denies abnormal gait, Denies limited range of motion, Denies muscle cramps, Denies muscle weakness, Denies numbness, Denies radiating pain into limb, Denies stiffness and Denies tingling Neuro Denies abnormal gait, Denies dizziness, Denies numbness and Denies tingling Endo Denies palpitations Physical Exam Vital Signs: Last Vital Signs Pulse 140 H 03/23/24 14:29 BP 114/72 03/23/24 14:29 BMI result Body Mass Index 26.2 Const General: cooperative, healthy appearing, comfortable and no acute distress Orientation/consciousness: patient oriented x3 Neck Neck: Yes normal visual inspection and Yes no JVD Chest Chest palpation & inspection: normal inspection of the chest Resp Effort & Inspection: normal respiratory effort Auscultation: clear to auscultation bilaterally, no rales, no rhonchi and no wheezes Cardio Jugular venous distension: no JVD Rate: tachycardic Rhythm: regular rhythm Heart sounds: S1 normal heart sound present, S2 normal heart sound present, no murmurs and no rubs Neuro General: patient oriented x3 Extrem General: Yes normal to inspection, No no pedal edema and No calf tenderness Psych Appearance: grossly normal Mental Status: mental status grossly normal Speech and movement: Normal speech and movement present Office Procedures EKG Details: Today, read by me, atrial flutter, incomplete right bundle branch block, rate 140, QTC 403 millisecond [id number], Complete Assessment & Plan Assessment & Plan (1) Atrial flutter with rapid ventricular response: Code(s): I48.92 - Unspecified atrial flutter Category: Medical Plan: History of paroxysmal atrial fibrillation. Holter monitor done 06/2022 showed atrial fibrillation 96% of the time, average heart rate 94. Echocardiogram done 01/12/2023 shows EF 63%, no valve abnormalities and no regional wall motion abnormalities. He was in sinus rhythm at the time of the echocardiogram. He had been on diltiazem and metoprolol for heart rate control. He does not report any concerning symptoms with his PAF. He recently came for a colonoscopy and was initially in sinus rhythm. He reverted into atrial flutter with RVR. His procedure was canceled and he was sent to the emergency room. He was evaluated by Dr. Pascual. His metoprolol was stopped and he was put on flecainide in addition to his diltiazem. Today he reports that he has been doing well. He denies heart palpitations. Does have some shortness of breath with exertion which he says is chronic with his smoking. EKG done today showing atrial flutter, rate 140. Recommended ER evaluation and treatment and he declines. Case discussed with Dr. Dee. Will have him continue flecainide and diltiazem at this time. Will restart metoprolol. Will have him come for an office EKG in 3-4 days. Informed him that his heart rate is very elevated and that he starts having an increasing shortness of breath, new edema or chest discomfort he should seek emergency medical care. Instructed on light activities over the next few days. Going forward we may need to change flecainide to alternate agent. Continue alcohol cessation. He states he may have sleep apnea as he sometimes wakes up with a startle. Offered home sleep study and he declines. Continue current meds without change. - cardiology office visit 2-3 months, sooner if needed. (2) Shortness of breath: Code(s): R06.02 - Shortness of breath Category: Medical Plan: With activity, unchanged recently. (3) Coronary artery calcification: Comment: follows w/[facility] Code(s): I25.10 - Atherosclerotic heart disease of [place] coronary artery without angina pectoris; I25.84 - Coronary atherosclerosis due to calcified coronary lesion Category: Medical Plan: Prior chest CT with coronary artery calcifications. He underwent a pharmacological nuclear stress test on 01/15/2023 showing normal myocardial perfusion imaging. Echocardiogram as above with normal EF no regional wall motion abnormalities. On last visit reported increasing shortness of breath with activity. This could be explained by his smoking 1 pack of cigarettes per day however EKG done last visit shows normal sinus rhythm with new T-wave inversions inferiorly and V4 through V6. He tells me that his father of an IA at his age. Cardiac risk factors of smoking, history, sedentary. He had an echocardiogram done 08/17/2023 showing EF 60-65%, no regional wall motion abnormalities. A CTA of the coronary arteries was done on 09/15/2023 showing calcium score 430, mild proximal LAD stenosis, left circumflex moderate mixed plaque in the proximal to mid section. Test results reviewed with him in detail. Diagnosis of nonobstructive coronary artery disease reviewed. He does not have anginal symptoms at this time. His shortness of breath is likely pulmonary. Will medically manage at this time. He has not on aspirin as he is on Eliquis. Continue atorvastatin, restarting metoprolol. Labs done 01/14/2024 showed LDL 65. Signs and symptoms of angina reviewed. (4) PAF (paroxysmal atrial fibrillation): Code(s): I48.0 - Paroxysmal atrial fibrillation Category: Medical Plan: As above (5) Smoking: Comment: 1 pack per day, 01/2023 Code(s): F17.200 - Nicotine dependence, unspecified, uncomplicated Category: Social Hx Plan: He now has albuterol and Symbicort inhalers to use for his shortness of breath. (6) Alcohol use: Code(s): Z78.9 - Other specified health status Category: Social Hx Plan: Previously was drinking a few alcohol nips daily. Now he reports complete alcohol cessation. (7) [place] coronary artery calcium score greater than 400: Comment: Coronary calcium score 430 on 09/15/2023 Code(s): R93.1 - Abnormal findings on diagnostic imaging of heart and coronary circulation Category: Medical Plan: As above Plan Time spent on chart review, documentation, interview assessment Medications: Refilled flecainide 100 mg PO Q12H 60 tabs 3RF metoprolol tartrate 50 mg PO BID 60 tabs 3RF atorvastatin 20 mg PO BEDTIME 90 tabs 3RF Coding Level of Care Code Est Pt Level 4 (07262) Complex EM visit Add On G2211 Diagnoses Atrial flutter with rapid ventricular response I48.92 Shortness of breath R06.02 Coronary artery calcification I25.10; I25.84 PAF (paroxysmal atrial fibrillation) I48.0 Smoking F17.200 Alcohol use Z78.9 [place] coronary artery calcium score greater than 400 R93.1 CPT Codes EKG - CPT: [id number], Complete ([id number]) Time Spent (min) 30
== END 2024-03-23 15:13 | disposition home or self-care (01) ==
LOC: HO.HCS 14:26
PROVIDERS: PCP Internal Medicine; Visit Provider Nurse Practitioner Family
DX: I45.10 Unspecified right bundle-branch block (principal); I48.3 Typical atrial flutter
CPT/HCPCS: 93010; 99214; G2211

== ENCOUNTER → 2024-03-23 14:26 | Outpatient (BNVA) | payer MEDICARE, SELFPAY | PROVIDERS: PCP Internal Medicine; Visit Provider Nurse Practitioner Family | DX: I48.92 Unspecified atrial flutter (principal); I25.10 Atherosclerotic heart disease of native coronary artery without angina pectoris; I25.84 Coronary atherosclerosis due to calcified coronary lesion; I48.0 Paroxysmal atrial fibrillation; R06.02 Shortness of breath; R93.1 Abnormal findings on diagnostic imaging of heart and coronary circulation; F17.210 Nicotine dependence, cigarettes, uncomplicated; Z78.9 Other specified health status | CPT/HCPCS: 93005; 99212 ==

== ENCOUNTER 2024-06-07 08:29 | Outpatient (AMB) | payer MEDICARE, SELFPAY ==
[2024-06-07 08:39] VITALS: BP 120/56; PULSE 55; BMI 26.4
--- NOTE | 2024-06-07 08:39 | A.OFFVIS_ITS ---
Vital Signs 06/07/24 08:39 Height 5 ft 8 in Weight 173 lb 11.588 oz BMI 26.4 BP 120/56 L Blood Pressure Location Lt brachial Position Sitting Pulse 55 Intake Visit Reasons: 3mth f/up [employer] Required: No Accompanied by: Self / Same As Patient Allergies No Known Allergies Allergy (Verified 03/23/24 14:31) Medication List - Last Reconciled 06/07/24 by Timmy Dee MD albuterol sulfate 90 mcg/actuation inhalation apixaban (Eliquis) 5 mg PO BID atorvastatin 20 mg PO BEDTIME budesonide-formoterol 160-4.5 mcg/actuation (Symbicort) inhalation diltiazem HCl CD 240 mg (2 x 120 mg) PO DAILY 90 days flecainide 100 mg PO Q12H metoprolol tartrate 50 mg PO BID 90 days HPI Comments Details: Boni returns for follow-up regarding atrial fibrillation. 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 Then, he was not followed up till a couple of years ago. 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 In that setting, he also had atrial fibrillation with rapid rate. After that, multiple episodes of atrial fibrillation/flutter at different times. In 02/2024, he came for colonoscopy and it seems he had atrial flutter with rapid rate. At that time, he was started on flecainide. Currently he is on combination of dilti azem/flecainide/metoprolol. It seems he had yet another hospitalization to [facility] for respiratory failure and in that setting, again had atrial fibrillation rapid rate and also had some bradycardia. After that, somewhat stable for the last couple of months. Denies any active cardiac symptoms. Unfortunately, still smokes. Still use alcohol but not as much and states he is trying to cut back. [facility] Medical History COPD (chronic obstructive pulmonary disease) Alcohol abuse, in remission Nicotine dependence, cigarettes, uncomplicated Coronary artery calcification PAF (paroxysmal atrial fibrillation) Surgical History History of surgery Hx of cholecystectomy Family History Father Heart disease Mother Diabetes Social History Alcohol intake: current Alcohol intake frequency: former alcohol drinker Patient Tobacco Use Status: Current everyday Tobacco user Tobacco use type: Cigarette Cigarette Packs Per Day: 1 Cigarettes Per Day: 20.0 Review of Systems Const Denies chills, Denies fatigue, Denies fever(s), Denies weight gain and Denies weight loss ENT Denies dizziness Card Denies chest pain, Denies leg edema, Denies lightheadedness, Denies palpitations, Reports dyspnea on exertion, Denies orthopnea and Denies other Resp Denies cough and Reports dyspnea on exertion GI Denies hematochezia and Denies change in stool character Musc Denies abnormal gait, Denies muscle weakness, Denies numbness, Denies radiating pain into limb and Denies tingling Neuro Denies abnormal gait, Denies dizziness, Denies numbness and Denies tingling Endo Denies fatigue and Denies palpitations Physical Exam Vital Signs: Last Vital Signs Pulse 55 06/07/24 08:39 BP 120/56 L 06/07/24 08:39 BMI result Body Mass Index 26.4 Const General: comfortable and no acute distress Orientation/consciousness: patient oriented x3 HEENT Other: Unremarkable Head: Yes normal to inspection Neck Neck: Yes normal visual inspection Chest Chest palpation & inspection: normal inspection of the chest Resp Auscultation: rhonchi and diminished lung sounds Cardio Palpation: normal PMI Heart sounds: S1 normal heart sound present, S2 normal heart sound present, no gallops, no murmurs and no rubs GI Palpation (GI): Soft to palpation Back/Spine/Pelvis Other: unremarkable Skin General skin exam: no rashes or lesions noted Neuro General: patient oriented x3 Extrem General: Yes normal to inspection Psych Mental Status: mental status grossly normal Office Procedures EKG Details: EKG with underlying artifact. Sinus rhythm at 55/Min; borderline NM prolongation to 220 milliseconds; normal corrected QT. no ischemic findings. [id number], Complete Assessment & Plan Assessment & Plan (1) PAF (paroxysmal atrial fibrillation): Code(s): I48.0 - Paroxysmal atrial fibrillation Category: Medical Plan: Listed to be on metoprolol, diltiazem and flecainide. Can continue that. Continue Eliquis. Due to recurring atrial fibrillation/flutter episodes, refer to EP for consideration of ablation. (2) Atherosclerotic cardiovascular disease: Code(s): I25.10 - Atherosclerotic heart disease of [place] coronary artery without angina pectoris Category: Medical Plan: Echocardiogram 2022 with LVEF of 63%. No wall motion abnormalities. Normal valvular function. Normal atrial size. Myocardial perfusion imaging study from 2022 showed normal perfusion. Coronary CTA 2023-calcium score of 430. Mild coronary disease. More focal area of moderate narrowing in the proximal to mid circumflex. Clinically, he has got no angina. Continue statins. Last LDL 65 mg/dL. (3) Alcohol use: Code(s): Z78.9 - Other specified health status Category: Social Hx Plan: Strongly advised to stop. Relationship with atrial fibrillation discussed. Orders: Referrals Cardiac Electrophysiology Referral I48.0 - Paroxysmal atrial fibrillation, I48.91 - Unspecified atrial fibrillation Coding Level of Care Code Est Pt Level 4 (82662) Diagnoses PAF (paroxysmal atrial fibrillation) I48.0 Atherosclerotic cardiovascular disease I25.10 Alcohol use Z78.9 CPT Codes EKG - CPT: 01097-Qsvmwamykpihbotwn, Complete ([id number])
--- OUTSIDE RECORDS SUMMARY | 2024-06-07 08:45 | XMS_ITS ---
Author Name [facility] Organization Unknown Results Test Name/Text Value Interpretation Date Range Source Amphet Ur Ql Scn NEGATIVE Normal [id number] - [facility] Barbiturates Ur Ql Scn NEGATIVE Normal [id number] - [facility] Cannabinoids Ur Ql Scn NEGATIVE Normal [id number] - [facility] BZE Ur Ql Scn NEGATIVE Normal [id number] - [facility] ETHANOL SERPL MCNC 170mg/dL Above high normal [id number] 0 - 10 [facility] BILIRUB [facility] MCNC 0.5mg/dL Normal [id number] 0.3 - 1 [facility] BIL[facility] DIRECT SERPL MCNC 0.1mg/dL Normal [id number] 0 - 0.2 [facility] AMYLASE SERPL CCNC 15U/L Below low normal [id number] 2 9 - 103 [facility] LIPASE SERPL CCNC 39U/L Normal [id number] 11 - 82 [facility] CREAT SERPL MCNC 0.7mg/dL Normal [id number] 0.7 - 1.3 [facility] CALCIUM SERPL MCNC 9.3mg/dL Normal [id number] 8.4 - 10 .2 [facility] SODIUM SERPL SCNC 138mmol/L Normal [id number] 135 - 145 [facility] ANION GAP SERPL SCNC 16mmol/L Above high normal [id number] 2 5 - 14 [facility] Glomerular filtration rate/1.73 sq M. predicted 102 Normal [id number] 60 - [facility] HCO3 SER SCNC 24mmol/L Normal [id number] 24 - 32 [facility] GLUCOSE SERPL MCNC 189mg/dL Normal [id number] 70 - 199 [facility] BUN SERPL MCNC 7mg/dL Below low normal [id number] 9 - 2 0 [facility] CHLORIDE SERPL SCNC 99mmol/L Normal [id number] 98 - 10 7 [facility] POTASSIUM SERPL SCNC 3.7mmol/L Normal [id number] 3.5 - 5.1 [facility] MAGNESIUM SERPL MCNC 1.6mg/dL Below low normal [id number] 1.7 - 2.8 [facility] LDH SERPL L TO P CCNC 142U/L Normal [id number] 125 - 220 [facility] AST SERPL [facility] 22U/L Normal [id number] 5 - 40 [facility] ALP SERPL-CCNC 66U/L Normal [id number] 34 - 104 [facility] ALT SERPL CCNC 27U/L Normal [id number] 7 - 52 [facility] PLATELET NO. BLD AUTO 170K/uL Normal [id number] 150 - 450 [facility] RBC NO. BLD AUTO 4.83M/uL Normal [id number] 4.7 - 6 [facility] NUCLEATED RBC 0% Normal [id number] 0 - 1 [facility] LYMPHOCYTES NO. BLD AUTO 1.3K/uL Normal [id number] 1 - 3.2 [facility] EOSINOPHIL NO. BLD AUTO 0.2K/uL Normal [id number] 0 - 0.5 [facility] MCH RBC QN AUTO 32.7pg Normal [id number] 25 - 33 [facility] MCHC RBC AUTO MCNC 34.1g/dL Normal [id number] 32 - 36 [facility] MONOCYTES NFR BLD AUTO 12.7% Above high normal [id number] 2 - 12 [facility] IMMATURE GRANULOCYTE, ABSOLUTE 0.01k/uL Normal [id number] - 0.1 [facility] LYMPHOCYTES NFR BLD AUTO 24.9% Normal [id number] 20 - 48 [facility] EOSINOPHIL NFR BLD AUTO 3.6% Normal [id number] 0 - 6 [facility] HGB BLD MCNC 15.8g/dL Normal [id number] 13.5 - 18 [facility] NEUTROPHILS NO. BLD AUTO 3.1K/uL Normal [id number] 1. 8 - 7.8 [facility] WBC NO. BLD AUTO 5.4K/uL Normal [id number] 4 - 10.5 [facility] BASOPHILS NFR BLD AUTO 0.9% Normal [id number] 0 - 2 [facility] MONOCYTES NO. BLD AUTO 0.7K/uL Normal [id number] 0 - 0.8 [facility] MCV RBC AUTO 96.1fL Normal [id number] 78 - 100 [facility] NEUTROPHILS NFR BLD AUTO 57.7% Normal [id number] 44 - 74 [facility] IMMATURE GRANULOCYTE, PERCENT 0.2% Normal [id number] 0 - 1 [facility] BASOPHILS IN BLOOD BY AUTOMATED COUNT 0.1K/uL Normal [id number] 0 - 0.2 [facility] PMV BLD AUTO 9.7fL Normal [id number] 7.4 - 11.4 [facility] RDW RBC AUTO RTO 13.9% Normal [id number] 12.1 - 17. 7 [facility] HCT VFR BLD AUTO 46.4% Normal [id number] 40 - 54 [facility] PT TIME PPP 12.8sec Normal [id number] 10.5 - 13.3 [facility] INR PPP 1.1 Normal [id number] 0.8 - 1.1 [facility] Amphet Ur Ql Scn NEGATIVE Normal [id number] - [facility] Barbiturates Ur Ql Scn NEGATIVE Normal [id number] - [facility] Cannabinoids Ur Ql Scn NEGATIVE Normal [id number] - [facility] BZE Ur Ql Scn NEGATIVE Normal [id number] - [facility] CALCIUM SERPL MCNC 9.2mg/dL Normal 8.4 - 10 .2 [facility] ANION GAP SERPL SCNC 13mmol/L Normal [id number] 5 - 14 [facility] Glomerular filtration rate/1.73 sq M. predicted 94 Normal [id number] 60 - [facility] HCO3 SER SCNC 27mmol/L Normal 24 - 32 [facility] AST SERPL CCNC 37U/L Normal [id number] 5 - 40 [facility] GLUCOSE SERPL MCNC 168mg/dL Normal 70 - 199 [facility] BUN SERPL MCNC 9mg/dL Normal 9 - 20 [facility] CHLORIDE SERPL SCNC 97mmol/L Below low normal [id number] 98 - 107 [facility] ALBUMIN SERPL BCG MCNC 4.3g/dL Normal 3.5 - 5 [facility] ALP SERPL-CCNC 67U/L Normal 34 - 104 [facility] ALT SERPL CCNC 39U/L Normal [id number] 7 - 52 [facility] CREAT SERPL MCNC 0.9mg/dL Normal [id number] 0.7 - 1.3 [facility] SODIUM SERPL SCNC 137mmol/L Normal [id number] 135 - 145 [facility] PROT SERPL MCNC 7.5g/dL Normal [id number] 6.4 - 8.5 [facility] BILIRUB SERPL MCNC 0.5mg/dL Normal [id number] 0.3 - 1 [facility] POTASSIUM SERPL SCNC 3.7mmol/L Normal [id number] 3.5 - 5.1 [facility] ETHANOL SERPL MCNC 162mg/dL Above high normal [id number] 0 - 10 [facility] PLATELET NO. BLD AUTO 196K/uL Normal [id number] 150 - 450 [facility] RBC NO. BLD AUTO 4.81M/uL Normal 4.7 - 6 [facility] NUCLEATED RBC 0% Normal [id number] 0 - 1 [facility] LYMPHOCYTES NO. BLD AUTO 1.6K/uL Normal [id number] 1 - 3.2 [facility] EOSINOPHIL NO. BLD AUTO 0.2K/uL Normal [id number] 0 - 0.5 [facility] MCH RBC QN AUTO 33.9pg Above high normal [id number] 25 - 33 [facility] MCHC RBC AUTO MCNC 35.1g/dL Normal [id number] 32 - 36 [facility] MONOCYTES NFR BLD AUTO 14.3% Above high normal [id number] 2 - 12 [facility] IMMATURE GRANULOCYTE, ABSOLUTE 0.03k/uL Normal [id number] - 0.1 [facility] LYMPHOCYTES NFR BLD AUTO 30.4% Normal [id number] 20 - 48 [facility] EOSINOPHIL NFR BLD AUTO 4.1% Normal [id number] 0 - 6 [facility] HGB BLD MCNC 16.3g/dL Normal [id number] 13.5 - 18 [facility] NEUTROPHILS NO. BLD AUTO 2.7K/uL Normal [id number] 1. 8 - 7.8 [facility] WBC NO. BLD AUTO 5.4K/uL Normal [id number] 4 - 10.5 [facility] BASOPHILS NFR BLD AUTO 0.9% Normal [id number] 0 - 2 [facility] MONOCYTES NO. BLD AUTO 0.8K/uL Normal [id number] 0 - 0.8 [facility] MCV RBC AUTO 96.5fL Normal [id number] 78 - 100 [facility] NEUTROPHILS NFR BLD AUTO 49.7% Normal [id number] 44 - 74 [facility] IMMATURE GRANULOCYTE, PERCENT 0.6% Normal [id number] 0 - 1 [facility] BASOPHILS IN BLOOD BY AUTOMATED COUNT 0.1K/uL Normal [id number] 0 - 0.2 [facility] PMV BLD AUTO 9.8fL Normal [id number] 7.4 - 11.4 [facility] RDW RBC AUTO RTO 14.1% Normal [id number] 12.1 - 17. 7 [facility] HCT VFR BLD AUTO 46.4% Normal [id number] 40 - 54 [facility] History of Medication Use Medication Directions Dispensed Refills Start Date End Date Stat famotidine (PF) (PEPCID) injection 20 mg 20 mg, Intravenous, Once, On Wed01/28/24 at 1700, For 1 doseMaximum IV Push dose of 40 mg. Dilute to final concentration of 4 mg/mL with 0.9% NaCl (may also use SWFI) and administer over 2 minutes. 02/01/2024 completed Eliquis 5 MG TABS tablet Take 1 tablet (5 mg total) by mouth 2 (two) times a day. 02/01/2024 active dilTIAZem (CARDIZEM CD) 120 MG 24 hr capsule 02/01/2024 active magnesium oxide tablet 400 mg 400 mg, Oral, 2 times daily, First dose on Wed01/30/24 at 0900 02/01/2024 active sodium chloride 0.9% bolus (NS) 500 mL 500 mL, Intravenous, at 500 mL/hr, Once, On Wed01/28/24 at 1315, For 1 dose 02/01/2024 completed atorvastatin (LIPITOR) tablet 20 mg Take 1 tablet (20 mg total) by mouth daily. 02/01/2024 active sodium chloride 0.9% bolus (NS) 1,000 mL 1,000 mL, Intravenous, at 1,000 mL/hr, Once, On 01/30/24 at 0200, For 1 dose 02/01/2024 completed nicotine (NICODERM CQ) 21 MG/24HR Place 1 patch onto the skin daily as needed (nicotine cessation). OTC 02/01/2024 active metoprolol tartrate (LOPRESSOR) 50 MG tablet 02/01/2024 active dilTIAZem (CARDIZEM CD) 24 hr capsule 120 mg 120 mg, Oral, Daily, First dose on 01/29/24 at 0900 02/01/2024 active metoprolol tartrate (LOPRESSOR) tablet 25 mg 25 mg, Oral, Once, On 01/30/24 at 0845, For 1 dose 02/01/2024 completed Symbicort 160-4.5 MCG/ACT inhaler 02/01/2024 active LORazepam (ATIVAN) 0.5 MG tablet Take 1 tablet (0.5 mg total) by mouth every 6 (six) hours as needed. 02/01/2024 active ipratropium-albute rol (DUO-NEB) nebulizer solution 3 mL 3 mL, Inhalation, Once, On 01/29/24 at 0645, For 1 dose 01/31/2024 complete d apixaban (ELIQUIS) tablet 5 mg 5 mg, Oral, 2 times daily, First dose on 01/29/24 at 0900 01/31/2024 active LORazepam (ATIVAN) tablet 2 mg 2 mg, Oral, Every 30 min PRN, sedation, CIWA 16-20, Starting on Wed01/28/24 at 1210Hold if respiratory rate less than 10 or O2 sat less than 92%.?Per alcohol withdrawal protocol. 01/31/2024 active albuterol 108 (90 Base) MCG/ACT inhaler 01/31/2024 active metFORMIN (GLUCOPHAGE) tablet 500 mg 500 mg, Oral, 2 times daily with meals, First dose on 01/29/24 at 1045 01/31/2024 active LORazepam (ATIVAN) 1 MG tablet Take 1 tablet (1 mg total) by mouth every 8 (eight) hours as needed for anxiety (alcohol withdrawal). 01/31/2024 active albuterol (PROVENTIL) nebulizer solution 2.5 mg 2.5 mg, Nebulization, Once, On Wed01/28/24 at 1700, For 1 dose 01/31/2024 completed metoPROLOL TARTRATE (LOPRESSOR) 50 MG tablet 1 tablet with food Orally Twice a day 09/18/2023 active apixaban (Eliquis) 5 MG tablet 1 tablet Orally Twice a day 09/18/2023 active iohexol (OMNIPAQUE) 350 mg/mL injection 80 mL 80 mL, Intravenous, Once in imaging, contrast, Starting on Wed09/15/23 at 1009, For 1 dose, Radiology Appointment 09/18/2023 completed gabapentin (NEURONTIN) 300 MG capsule 09/18/2023 active diltiazem (CARDIZEM) 120 MG tablet 2 tabs Orally once a day 09/18/2023 active Problems Problem Status Onset Date Problem Type Date of Resolution Source Shortness of breath active EncounterDiagnosisAc t [facility] EKG, abnormal active EncounterDiagnosisAct [facility] Alcohol abuse active 2015-11-14 ProblemAct [facility] Cocaine use active 2015-11-14 ProblemAct [facility] Nicotine abuse active 2015-11-14 ProblemAct [facility] Alcohol intoxication (HCC) active EncounterDiagnosisAct [facility] H Hypomagnesemia active EncounterDiagnosisAct [facility] Alcohol use disorder active EncounterDiagnosisA ct [facility]
== END 2024-06-07 09:07 | disposition home or self-care (01) ==
PROVIDERS: PCP Internal Medicine; Visit Provider Internal Medicine
DX: I48.0 Paroxysmal atrial fibrillation (principal); I25.10 Atherosclerotic heart disease of native coronary artery without angina pectoris; Z78.9 Other specified health status
CPT/HCPCS: 93010; 99214

== ENCOUNTER → 2024-06-07 08:29 | Outpatient (BNVA) | payer MEDICARE, SELFPAY | PROVIDERS: PCP Internal Medicine; Visit Provider Internal Medicine | DX: I25.10 Atherosclerotic heart disease of native coronary artery without angina pectoris (principal); I48.0 Paroxysmal atrial fibrillation; F17.210 Nicotine dependence, cigarettes, uncomplicated; Z78.9 Other specified health status | CPT/HCPCS: 93005; 99212 ==

== ENCOUNTER 2025-01-19 10:37 | Outpatient (REF) | payer MEDICARE, SELFPAY ==
--- OUTSIDE RECORDS SUMMARY | 2020-08-27 06:00 | XMS_ITS | Continuity of Care Document ---
Author Name [facility] Organization [facility] Care Team Providers Care [place] Mixer Operator Name Role Phone [facility] Unavailable Unavailable Immunizations Combined list of available immunizations from the Department of Defense and Veterans Affairs facilities. Immunization Series Date Given Administered By Site Reaction Lot Number CVX Code Drug Jet Piercer Operator Status Comments Source COVID-19 ([employer]), VECTOR-NR, [id number], PF, 0.5 ML 1 2020 212 complet ed JSN; [id number]; 1 [place] [facility]
--- OUTSIDE RECORDS SUMMARY | 2024-03-03 08:40 | XMS_ITS ---
Author Organization [facility] Address [address] [place] [id number] Care Team Providers Care Neurobiologist Name Role Phone Brittny ACUÑA, Mayo Primary Care Provider Quintin Roa Jr, Delano Lu [phone] REASON FOR VISIT screening Encounters Encounter Location Date Provider Diagnosis [facility] [place] [address] [place] [id number] 03/03/2024 Delano Roa Jr Plan Of Treatment No Information Progress Notes * ALEXANDRIA NICHOLAS WDOB: 8 (69 yo M)Acc No.[id number]:03/03/2024 COLON WITH MAC Patient: ALEXANDRIA MORILLO Provider: Maria Elena Roa MD :1955 A ge:68 Y S ex:Male Date:03/03/2024 Address:[address] [place] [address] [facility] Pcp:Mayo Mart MD Subjective: * Chief Complaints: * 1 . Screening. * Medical History: Objective: * Vitals: Assessment: Plan: * Treatment: * * The named appointment provid er may or may not be the originator of this progress note, and it is not deemed complete until electronically signed by the appointment provider. Sign off status: Pending * Provider: Maria Elena Roa MD Date: 1 Generated for Laurai ng/Fabrookeg/eTransmitting on: 0 01/19/2025 11:16 AM EDT
--- OUTSIDE RECORDS SUMMARY | 2024-05-01 13:00 | XMS_ITS ---
Author Organization Mayo Mart MD Address [address] [place] [phone] Care Team Providers Care Electrical System Specialist Name Role Phone Mayo Mart Primary Care [...] Active Encounters Encounter Location Date Provider Diagnosis Myao Mart MD [address] [place] [phone] 05/01/2024 Mayo Mart Plan Of Treatment Next Appt Details Provider Name:Mayo Cox ier, 02/12/2025 01:45:00 PM, [address] [place] [address], [address], [place], [place], [phone], Progress Notes * Boni ESPINOZA WDOB: 8 (69 yo M)Acc No.[id number]:05/01/2024 Patient: Boni MORILLO Provider: Preet Mart MD :1955 A ge:68 Y S ex:Male Date:05/01/2024 Address:[address] [place] [address], [id number] Subjective: * Chief Complaints: * 1 . [...] Pending * Provider: Preet Mart MD Date: 1 07/02/2023 Generated for Jovi quezada/Edenilson/Brianna on: 0 01/19/2025 11:16 AM EDT
--- OUTSIDE RECORDS SUMMARY | 2024-06-30 04:13 | XMS_ITS ---
Author Organization Mayo Mart MD Address [address] [place] [phone] Care Team Providers Care Ssis Ssrs Developer Name Role Phone Mayo Mart Primary Care Provider [phone] REASON FOR VISIT ER visit rec'd Encounters Encounter Location Date Provider Diagnosis Mayo Mart MD 10 [facility] [address] [place] [phone] 06/30/2024 Mayo Mart Plan Of Treatment Next Appt Details Provider Name:Mayo Cox ier, 02/12/2025 01:45:00 PM, [address] [facility], Suite [facility], [place], [place], [phone], Progress Notes * Boni ESPINOZA WDOB: 8 (69 yo M)Acc No.[id number]:06/30/2024 Patient: Yumi Boni SY :1955 A ge:69 Y S ex:Male Address:[address] [place] [address] [place] [address] * true * Date: Generated for Printi ng/Faxing/eTransmitting on: 0 01/19/2025 11:16 AM EDT
--- OUTSIDE RECORDS SUMMARY | 2024-07-04 10:15 | XMS_ITS ---
Author Organization Mayo Mart MD Address [address] [place] [phone] Care Team Providers Care Flow Match Sofa Cutter Name Role Phone Mayo Mart Primary Care Provider [phone] Allergies Allergen (clinical drug ingredient) Drug/Non Drug [...] Location Date Provider Diagnosis Mayo Mart MD [address] [place] [address] [place] [phone] 07/04/2024 Mayo Mart Type 2 diabetes mellitus [...] Up: 3 Months, Reason: Provider Name:Mayo parson, 02/12/2025 01:45:00 PM, [address], [address], [place], [place], [phone], Progress Notes * Boni ESPINOZA WDOB: 8 (69 yo M)Acc No.[id number]:07/04/2024 Progress Notes Patient: Boni MORILLO Provider: Preet Mart MD :1955 A ge:69 Y S ex:Male Date:07/04/2024 Address:[address] [place] [address] [place], [id number] Subjective: * Chief Complaints: * 3 month [...] cigarettes a day do you smoke? 1 1-20, H ow soon after you wake up [...] and reconciled with the patient * Allergies: Michael neal[Allergies Verified] Objective: * Vitals: H t: 67.5, [...] 2947 ASSAY, GLUCOSE, BLOOD QUANT, Modifiers: QW 12788 GLYCATED HEMOGLOBIN TEST, Modifiers: QW * Follow Up: 3 Months * * Sign off status: Completed true * Provider: Preet Mart MD Date: 0 07/04/2024 Generated for Jovi quezada/Edenilson/Enitting on: 0 01/19/2025 11:17 AM EDT History and Physical Notes * HPI (History [...]
--- OUTSIDE RECORDS SUMMARY | 2024-11-13 09:45 | XMS_ITS ---
Author Organization Mayo Mart MD Address [address] [place] [phone] Care Team Providers Care Financial Institution Manager Name Role Phone Mayo Mart Primary Care Provider [phone] Allergies Allergen (clinical drug ingredient) Drug/Non Drug [...] Location Date Provider Diagnosis Mayo Mart MD [address] [place] [address] [place] [phone] 11/13/2024 Mayo Mart Type 2 diabetes mellitus [...] (ICD-10 - I48.91) need last note from [facility] Plan Of Treatment Medication Medication Name Sig [...] yet Atrial fibrillation need last note from [facility] Next Appt Details Provider Name:Mayo Cox ier, 02/12/2025 01:45:00 PM, [address] [place] [address], Suite [facility], [place], [place], [phone], Progress Notes * Boni ESPINOZA WDOB: 8 (69 yo M)Acc No.[id number]:11/13/2024 Progress Notes Patient: Yumi Boni SY W Provider: Preet Mart MD :1955 A ge:69 Y S ex:Male Date:11/13/2024 Address:[address] [place] [address], [id number] Subjective: * Chief Complaints: * 3 MO [...] Orally every 12 hrs * Allergies: C hantix: val[Allergies Verified] Objective: * Vitals: H t: [...] a day.?? Notes: need last note from [facility]?? * Procedure Codes: 8 2947 ASSAY, GLUCOSE, BLOOD QUANT, Modifiers: QW 66384 GLYCATED HEMOGLOBIN TEST, Modifiers: QW * * Sign off status: Completed true * Provider: Preet Mart MD Date: 0 11/13/2024 Generated for Jovi quezada/Edenilson/Enitting on: 0 01/19/2025 11:16 AM EDT History and Physical Notes * [...]
--- OUTSIDE RECORDS SUMMARY | 2025-01-19 05:00 | XMS_ITS ---
Author Organization Mayo Mart MD Address [address] [place], [place] [phone] Care Team Providers Care Organ Assembler Name Role Phone Mayo Mart Primary Care Provider Results Component Value Reference Range Notes Complete Blood Count Auto Di ff (Not yet reviewed by provider) Interpretation: Performing Lab:[facility], [address] [place] [phone] Notes/Report: White Blood Count 7.2 4.8-10.8 X10*3/uL [...] X10*3/uL NRBC Abs Auto 0.000 0.0-0.012 X10*3/uL REASON FOR VISIT yearly fasting labs Encounters Encounter Location Date Provider Diagnosis Mayo Mart MD [address] [place], [place] [phone] 01/19/2025 Mayo Mart Blood tests for rout [...] insulin (ICD-10 - E11.9) Plan Of Treatment Pending Test Test Name Order Date Complete Blood Count Auto Diff Comprehensive [place]. Panel Fast Lipid Panel 01/19/2025 PSA,Total (Free>4and<10) 01/19/2025 Microalbumin, Random 01/19/2025 Hemoglobin A1c 01/19/2025 UA ClnCatch+Micro w/rflx Cult 01/19/2025 Next Appt Details Provider Name:Mayo Cox ier, 02/12/2025 01:45:00 PM, [address], [address], [place], [place], [id number], Progress Notes * Boni ESPINOZA WDOB: 8 (69 yo M)Acc No.[id number]:01/19/2025 Progress Note Patient: Yumi Boni SY Provider: Preet Mart MD :1955 A ge:69 Y S ex:Male Date:01/19/2025 Address:[address] [place] [address] [phone] Subjective: * Chief Complaints: * 1 . [...] - 01/19/2025 10:00 AM) L AB: Comprehensive [place]. Panel Fast L AB: Lipid Panel L AB: PSA,Total (Free>4and<10) L AB: Microalbumin, Random L AB: Hemoglobin A1c L AB: UA ClnCatch+Micro w/rflx Cult 3. L abile hypertension L AB: Complete Blood Count Auto Diff (Collection Date & Time - 01/19/2025 10:00 AM) L AB: Comprehensive [place]. Panel Fast L AB: Lipid Panel L AB: PSA,Total (Free>4and<10) L AB: Microalbumin, Random L AB: Hemoglobin A1c L AB: UA ClnCatch+Micro w/rflx Cult 4. T ype 2 diabetes mellitus treated without insulin L AB: Complete Blood Count Auto Diff (Collection Date & Time - 01/19/2025 10:00 AM) L AB: Comprehensive [place]. Panel Fast L AB: Lipid Panel L AB: PSA,Total (Free>4and<10) L AB: Microalbumin, Random L AB: Hemoglobin A1c L AB: UA ClnCatch+Micro w/rflx Cult * Procedure Codes: 3 6415 VENIPUNCT, ROUTINE* * * The named appointment provid er may or may not be the originator of this progress note, and it is not deemed complete until electronically signed by the appointment provider. Sign off status: Pending * Provider: Preet Mart MD Date: 0 01/19/2025 Generated for Printi ng/Faxing/eTransmitting on: 0 01/19/2025 11:17 AM EDT
[2025-01-19 10:40] LABS: MANUAL DIFF FLAG NO
[2025-01-19 11:10] LABS: Appearance Urine Clear; Glucose Urine UA 250 mg/dL (Negative); Hematocrit 47.4 % (42.0-52.0); Hemoglobin 15.5 g/dl (14.0-18.0); Imm Gran Abs Auto 0.04 X10*3/uL (0.00-0.03); Imm Gran Pct Auto 0.6 % (0.0-0.4); Lymphocytes Absolute Auto 1.5 X10*3/uL (1.2-4.9); Mean Corpuscular HGB Conc 32.7 g/dl (31.0-36.0); Mean Corpuscular Hemoglobin 31.0 pg (27.0-33.0); Mean Corpuscular Volume 94.8 fL (80.0-98.0); NRBC Abs Auto 0.000 X10*3/uL (0.0-0.012); NRBC Pct Auto 0.0 /100WBC (0.0-0.2); PH 5.5 (5.0-9.0); Platelet Count 241 X10*3/uL (160-400); Red Blood Count 5.00 X10*6/uL (4.60-5.80); Specific Gravity - Urine 1.025 (1.005-1.025); UMIC TRIGGER UACC YES; White Blood Count 7.2 X10*3/uL (4.8-10.8)
--- OUTSIDE RECORDS SUMMARY | 2025-01-19 11:16 | XMS_ITS | Clinical Summary ---
Author Organization [facility] Address [address] [place] [address] Care Team Providers Care Director Gift Name Role Phone Mayo Mart MD Primary Care Provider Allergies No known active allergies Medications apixaban (Eliquis) 5 MG tablet 1 tablet Orally Twice a day 03/29/2023 Active gabapentin (NEURONTIN) 300 MG capsule 08/12/2023 Active diltiazem (CARDIZEM) 120 MG tablet 2 tabs Orally once a day Active metoPROLOL TARTRATE (LOPRESSOR) 50 MG tablet 1 tablet with food Orally Twice a day 03/29/2023 Active Social History Tobacco Use Types Packs/Day Years Used Date Smoking Tobacco: Never Assessed Sex and Gender Information Value Date Recorded Sex Assigned at Male 09/15/2023 8:34 AM EDT Legal Sex Male 12:16 PM EDT Gender Identity Male 09/15/2023 8:34 AM EDT Sexual Orientation Heterosexual (straight) 09/14 8:34 AM EDT Last Filed Vital Signs Vital Sign Reading Time Taken Comments Blood Pressure 128/71 09/15/2023 10:17 AM EDT Pulse 64 09/15/2023 10:17 AM EDT Temperature 36.3 C (97.4 F) 09/15/2023 9:04 AM EDT Respiratory Rate 23 09/15/2023 10:17 AM EDT Oxygen Saturation 95% 09/15/2023 10:17 AM EDT Inhaled Oxygen Concentration - - Weight - - Height - - Body Mass Index - - Plan of Treatment Health Maintenance Due Date Last Done Comments Advance Care Planning 1955 Hepatitis C Virus Screening 1955 DTaP/Tdap/Td Vaccines (1 - Tdap) 1976 Pneumococcal Vaccines 50+ (1 of 2 - PCV) 1976 Colonoscopy 2002 Zoster (Shingles) Vaccine (1 of 2) 2007 COVID-19 Vaccine (2 - 2023-2 5 season) 2024 08/27/2020 Influenza Vaccine 12/22/2024 RSV Vaccine 60 years and old er and Patients (1 - 1-dose 75+ series) 2032 Hepatitis B Vaccines Aged Out No long er eligible based on patient's age to complete this topic Insurance [employer] MGD MEDICARE Care Teams Director Gift Relationship Specialty Start Date End Date Mayo Mart MD [address] [place] [address] [place] [address] PCP - General Internal Medicine 09/15/23
--- OUTSIDE RECORDS SUMMARY | 2025-01-19 11:16 | XMS_ITS | Clinical Summary ---
Author Organization [facility] [place] [address] Care Team Providers Care Gi Asst Name Role Phone Mayo Mart MD Primary Care Provider [phone] Surgical History Surgery Date Site/Laterality Comments TONSILLECTOMY PROCEDURE:TONSILLECTOMY FRACTURE SURGERY PROCEDURE:FRACTURE SURGERY;COMMENT:L Foot Medical History Medical History Date Comments EtOH dependence (CMS/HCC V24, CMS/HCC V28) DX:EtOH dependence (HCC) Hypertension DX:Hypertension Family History Medical History Relation Name Comments No Known Problems Brother Heart disease Father Hypertension Father Cancer Sister Relation Name Status Comments Brother Alive Father Mother Sister Social History Tobacco Use Types Packs/Day Years Used Date Smoking Tobacco: Every Day Cigarettes Smokeless Tobacco: Never Alcohol Use Standard Drinks/Week Comments Yes 98 (1 standard drink = 0.6 oz pu re alcohol) Sex and Gender Information Value Date Recorded Sex Assigned at Not on file Legal Sex Male 7:38 AM EST Gender Identity Not on file Sexual Orientation Not on file Obstetrics History Plan of Treatment Health Maintenance Due Date Last Done Comments DTaP,Tdap,and Td Vaccines (1 - Tdap) 1976 Hepatitis A Vaccines (1 of 2 - Risk 2-dose series) 1976 Pneumococcal Vaccine: 50+ Ye ars (1 of 2 - PCV) 1976 Zoster Vaccines (1 of 2) 2007 COVID-19 Vaccine (2023-2 5 season) 2024 Abdominal Aortic Aneurysm (A AA) Screen 03/06/2024 Cholesterol Screening (Lipid Panel) 03/06/2024 Colorectal Cancer Screening: Colonoscopy 03/06/2024 Falls Risk Assessment 03/06/2024 Hepatitis C Screening 03/06/2024 Lung Cancer Screening (Low Dose CT) 03/06/2024 Social Influencers of Health Screening 03/06/2024 Depression Screening 05/24/2024 Influenza Vaccine (#1) 2025 RSV Immunization Adult Patie nts (1 - 1-dose 75+ series) 2032 HIB Vaccines Aged Out No longer eligi ble based on patient's age to complete this topic HPV Vaccines Aged Out No longer eligi ble based on patient's age to complete this topic Hepatitis B Vaccines Aged Out No long er eligible based on patient's age to complete this topic IPV Vaccines Aged Out No longer eligi ble based on patient's age to complete this topic MMR Vaccines Aged Out No longer eligi ble based on patient's age to complete this topic Meningococcal ACWY Vaccine Aged Out N o longer eligible based on patient's age to complete this topic Meningococcal B Vaccine Aged Out No l onger eligible based on patient's age to complete this topic RSV Immunization Patients Un isabel 20 months Aged Out No longer eligible b ased on patient's age to complete this topic Varicella Vaccines Aged Out No longer eligible based on patient's age to complete this topic Care Teams Gi Asst Relationship Specialty Start Date End Date Mayo Mart MD PCP - General Internal Medicine 02/15/20
--- OUTSIDE RECORDS SUMMARY | 2025-01-19 11:16 | XMS_ITS | Patient Health Record ---
Author Organization [facility] Address [address] [place] [address] Care Team Providers Care Snowmobile Mechanic Name Role Phone Brittny ACUÑA, Mayo Primary Care Provider Juaquin Elizondo Unavailable [phone] Allergies Allergen (clinical drug ingredient) Drug/Non Drug Allergy documented on EMR Reaction Allergy Type Onset Date Status varenicline Chantix Starting Wed Jacky anger Drug Allergy Active Reason For Referral No Information Medications Medication SIG (Take, Route, Frequency, Duration) Notes Start Date End Date Status ProAir HFA 108 (90 Base) MCG/ACT 1 puff as needed Inhalation every 4 hrs; Duration: 30 days 06/29/2019 Not-Taking Xarelto Active Social History Tobacco Use: Social History Observation Description Date Details (start date - stop date) Current Smoker NA - NA Tobacco Use/Smoking Question Answer Notes Are you a: current smoker How many cigarettes a day do you smoke? 1120 Alcohol Screen Question Answer Notes Did you have a drink containing alcohol in the p ast year? No Points 0 Interpretation Negative Tobacco use other than smoking: Question Answer Notes Are you an other tobacco user? No Problems Problem Type SNOMED Code ICD Code Onset Dates Problem Status W/U Status Risk Notes Problem Localized, primary osteoarthritis of the ankle and/or foot (229740245) Primary osteoarthrit is, left ankle and foot (M19.072) Active confirmed Plan Of Treatment No Information Insurance Providers Payer Name Payer Address Payer Phone Subscriber Number Group Number Insured Name Patient Relationship to Insured Coverage Start Date Coverage End Date [employer] Medicare [id number] [address] [address] [place] [address] [id number] Boni Espinoza Self - patient is the insured Medical (General) History Medical History History ICD Code colonoscopy 2013 due in 5 years. endosco py was negative. dr barrow Chicken pox Joint implants/screws Psoriasis Hypercholesterolemia Alcoholism chronic Headaches tension, not intractab le Emphysema Labile hypertension Diverticulitis of large inte lizeth without perforationor abscess without bleeding Surgical History Surgery Date(Month/Year) foot surgery, left foot
--- OUTSIDE RECORDS SUMMARY | 2025-01-19 11:16 | XMS_ITS ---
[facility] Name [facility] Organization Unknown Results Test Name/Text Value Interpretation Date Range Source BZE Ur Ql Scn NEGATIVE Normal 01/30/2024 - [facility] Amphet Ur Ql Scn NEGATIVE Normal 01/30/2024 - [facility] Cannabinoids Ur Ql Scn NEGATIVE Normal 01/30/2024 - [facility] Barbiturates Ur Ql Scn NEGATIVE Normal 01/30/2024 - [facility] BILIRUB SERPL MCNC 0.5 mg/dL Normal 01/30/2024 0.3 - 1 [facility] BILIRUB DIRECT SERPL MCNC 0.1 mg/dL Normal 01/30/2024 0 - 0.2 [facility] MAGNESIUM SERPL MCNC 1.6 mg/dL Below low normal 01/30/2024 1 .7 - 2.8 [facility] ALT SERPL CCNC 27.0 U/L Normal 01/30/2024 7 - 52 [facility] AST SERPL CCNC 22.0 U/L Normal 01/30/2024 5 - 40 [facility] ALP SERPL-CCNC 66.0 U/L Normal 01/30/2024 34 - 104 [facility] LDH SERPL L TO P CCNC 142.0 U/L Normal 01/30/2024 125 - 2 20 [facility] AMYLASE SERPL CCNC 15.0 U/L Below low normal 01/30/2024 29 - 103 [facility] ETHANOL SERPL MCNC 170.0 mg/dL Above high normal 01/30/2024 0 - 10 [facility] LIPASE SERPL CCNC 39.0 U/L Normal 01/30/2024 11 - 82 C [facility] BASOPHILS IN BLOOD BY AUTOMATED COUNT 0.1 K/uL Normal 01/30/2024 0 - 0.2 [facility] LYMPHOCYTES NFR BLD AUTO 24.9 % Normal 01/30/2024 20 - 48 [facility] NUCLEATED RBC 0.0 % Normal 01/30/2024 0 - 1 [facility] PL[facility] NO. BLD AUTO 170.0 K/uL Normal 01/30/2024 150 - 450 [facility] WBC NO. BLD AUTO 5.4 K/uL Normal 01/30/2024 4 - 10.5 CT [facility] LYMPHOCYTES NO. BLD AUTO 1.3 K/uL Normal 01/30/2024 1 - 3.2 [facility] MCHC RBC AUTO MCNC 34.1 g/dL Normal 01/30/2024 32 - 36 [facility] PMV BLD AUTO 9.7 fL Normal 01/30/2024 7.4 - 11.4 [facility] MCV RBC AUTO 96.1 fL Normal 01/30/2024 78 - 100 [facility] IMMATURE GRANULOCYTE, ABSOLUTE 0.01 k/uL Normal 01/30/2024 - 0.1 [facility] NEUTROPHILS NO. BLD AUTO 3.1 K/uL Normal 01/30/2024 1.8 - 7.8 [facility] MCH RBC QN AUTO 32.7 pg Normal 01/30/2024 25 - 33 [facility] RDW RBC AUTO RTO 13.9 % Normal 01/30/2024 12.1 - 17.7 [facility] RBC NO. BLD AUTO 4.83 M/uL Normal 01/30/2024 4.7 - 6 [facility] EOSINOPHIL NO. BLD AUTO 0.2 K/uL Normal 01/30/2024 0 - 0 .5 [facility] NEUTROPHILS NFR BLD AUTO 57.7 % Normal 01/30/2024 44 - 74 [facility] BASOPHILS NFR BLD AUTO 0.9 % Normal 01/30/2024 0 - 2 [facility] MONOCYTES NO. BLD AUTO 0.7 K/uL Normal 01/30/2024 0 - 0. 8 [facility] MONOCYTES NFR BLD AUTO 12.7 % Above high normal 2 - 12 [facility] HGB BLD MCNC 15.8 g/dL Normal 01/30/2024 13.5 - [facility] IMMATURE GRANULOCYTE, PERCENT 0.2 % Normal 01/30/2024 0 - 1 [facility] EOSINOPHIL NFR BLD AUTO 3.6 % Normal 01/30/2024 0 - 6 [facility] HCT VFR BLD AUTO 46.4 % Normal 01/30/2024 40 - [facility] SODIUM SERPL SCNC 138.0 mmol/L Normal 01/30/2024 135 - 14 5 [facility] HCO3 SER SCNC 24.0 mmol/L Normal 01/30/2024 24 - 32 [facility] CREAT SERPL MCNC 0.7 mg/dL Normal 01/30/2024 0.7 - 1.3 [facility] Glomerular filtration rate/1.73 sq M. predicted 102.0 Normal 01/30/2024 60 - [facility] CHLORIDE SERPL SCNC 99.0 mmol/L Normal 01/30/2024 98 - 10 7 [facility] CALCIUM SERPL MCNC 9.3 mg/dL Normal 01/30/2024 8.4 - 10.2 [facility] BUN SERPL MCNC 7.0 mg/dL Below low normal 01/30/2024 9 - 20 [facility] ANION GAP SERPL SCNC 16.0 mmol/L Above high normal 5 - 14 [facility] POTASSIUM SERPL SCNC 3.7 mmol/L Normal 01/30/2024 3.5 - 5 .1 [facility] GLUCOSE SERPL MCNC 189.0 mg/dL Normal 01/30/2024 70 - 199 [facility] PT TIME PPP 12.8 sec Normal 01/29/2024 10.5 - 13.3 [facility] INR PPP 1.1 Normal 01/29/2024 0.8 - 1.1 [facility] BZE Ur Ql Scn NEGATIVE Normal 01/28/2024 - [facility] Amphet Ur Ql Scn NEGATIVE Normal 01/28/2024 - [facility] Cannabinoids Ur Ql Scn NEGATIVE Normal 01/28/2024 - [facility] Barbiturates Ur Ql Scn NEGATIVE Normal 01/28/2024 - [facility] Glomerular filtration rate/1.73 sq M. predicted 94.0 Normal 01/28/2024 60 - [facility] SODIUM SERPL SCNC 137.0 mmol/L Normal 01/28/2024 135 - 14 5 [facility] CREAT SERPL MCNC 0.9 mg/dL Normal 01/28/2024 0.7 - 1.3 [facility] ALP SERPL-CCNC 67.0 U/L Normal 01/28/2024 34 - 104 [facility] ANION GAP SERPL SCNC 13.0 mmol/L Normal 01/28/2024 5 - 14 [facility] GLUCOSE SERPL MCNC 168.0 mg/dL Normal 01/28/2024 70 - 199 [facility] POTASSIUM SERPL SCNC 3.7 mmol/L Normal 01/28/2024 3.5 - 5 .1 [facility] AST SERPL CCNC 37.0 U/L Normal 01/28/2024 5 - 40 [facility] PROT SERPL MCNC 7.5 g/dL Normal 01/28/2024 6.4 - 8.5 [facility] CHLORIDE SERPL SCNC 97.0 mmol/L Below low normal 01/28/2024 98 - 107 [facility] BILIRUB SERPL MCNC 0.5 mg/dL Normal 01/28/2024 0.3 - 1 [facility] HCO3 SER SCNC 27.0 mmol/L Normal 01/28/2024 24 - 32 [facility] ALT SERPL CCNC 39.0 U/L Normal 01/28/2024 7 - 52 [facility] CALCIUM SERPL MCNC 9.2 mg/dL Normal 01/28/2024 8.4 - 10.2 [facility] BUN SERPL MCNC 9.0 mg/dL Normal 01/28/2024 9 - 20 [facility] ALBUMIN SERPL BCG MCNC 4.3 g/dL Normal 01/28/2024 3.5 - 5 [facility] ETHANOL SERPL MCNC 162.0 mg/dL Above high normal 01/28/2024 0 - 10 [facility] PMV BLD AUTO 9.8 fL Normal 01/28/2024 7.4 - 11.4 [facility] MCV RBC AUTO 96.5 fL Normal 01/28/2024 78 - 100 [facility] MCHC RBC AUTO MCNC 35.1 g/dL Normal 01/28/2024 32 - 36 [facility] RDW RBC AUTO RTO 14.1 % Normal 01/28/2024 12.1 - 17.7 [facility] MONOCYTES NFR BLD AUTO 14.3 % Above high normal 2 - 12 [facility] NEUTROPHILS NO. BLD AUTO 2.7 K/uL Normal 01/28/2024 1.8 - 7.8 [facility] EOSINOPHIL NO. BLD AUTO 0.2 K/uL Normal 01/28/2024 0 - 0 .5 [facility] EOSINOPHIL NFR BLD AUTO 4.1 % Normal 01/28/2024 0 - 6 [facility] NEUTROPHILS NFR BLD AUTO 49.7 % Normal 01/28/2024 44 - 74 [facility] WBC NO. BLD AUTO 5.4 K/uL Normal 01/28/2024 4 - 10.5 [facility] LYMPHOCYTES NO. BLD AUTO 1.6 K/uL Normal 01/28/2024 1 - 3.2 [facility] BASOPHILS IN BLOOD BY AUTOMATED COUNT 0.1 K/uL Normal 01/28/2024 0 - 0.2 [facility] IMMATURE GRANULOCYTE, ABSOLUTE 0.03 k/uL Normal 01/28/2024 - 0.1 [facility] RBC NO. BLD AUTO 4.81 M/uL Normal 01/28/2024 4.7 - 6 [facility] NUCLEATED RBC 0.0 % Normal 01/28/2024 0 - 1 [facility] HCT VFR BLD AUTO 46.4 % Normal 01/28/2024 40 - 54 [facility] LYMPHOCYTES NFR BLD AUTO 30.4 % Normal 01/28/2024 20 - 48 [facility] MONOCYTES NO. BLD AUTO 0.8 K/uL Normal 01/28/2024 0 - 0. 8 [facility] IMMATURE GRANULOCYTE, PERCENT 0.6 % Normal 01/28/2024 0 - 1 [facility] HGB BLD MCNC 16.3 g/dL Normal 01/28/2024 13.5 - 18 [facility] MCH RBC QN AUTO 33.9 pg Above high normal 01/28/2024 25 - 33 [facility] PLATELET NO. BLD AUTO 196.0 K/uL Normal 01/28/2024 150 - 450 [facility] BASOPHILS NFR BLD AUTO 0.9 % Normal 01/28/2024 0 - 2 [facility] History of Medication Use Medication Directions Dispensed Refills Start Date End Date Stat metoprolol tartrate (LOPRESSOR) tablet 25 mg 25 mg, Oral, Once, On 01/30/24 at 0845, For 1 dose 01/30/2024 01/30/2024 completed sodium chloride 0.9% bolus (NS) 1,000 mL 1,000 mL, Intravenous, at 1,000 mL/hr, Once, On Wed01/30/24 at 0200, For 1 dose 01/30/2024 01/30/2024 completed LORazepam (ATIVAN) 0.5 MG tablet Take 1 tablet (0.5 mg total) by mouth every 6 (six) hours as needed. 01/30/2024 active ipratropium-albute rol (DUO-NEB) nebulizer solution 3 mL 3 mL, Inhalation, Once, On 01/29/24 at 0645, For 1 dose 01/29/2024 01/29/2024 completed dilTIAZem (CARDIZEM CD) 24 hr capsule 120 mg 120 mg, Oral, Daily, First dose on 01/30/24 at 0900 01/29/2024 active albuterol (PROVENTIL) nebulizer solution 2.5 mg 2.5 mg, Nebulization, Once, On Wed01/28/24 at 1700, For 1 dose 01/28/2024 01/28/2024 completed metoprolol tartrate (LOPRESSOR) 50 MG tablet 11/17/2023 active nicotine (NICODERM CQ) 21 MG/24HR Place 1 patch onto the skin daily as needed (nicotine cessation). OTC 06/14/2017 active Problems Problem Status Onset Date Problem Type Date of Resolution Source Alcohol abuse active 2015-11-14 ProblemAct COUNTS INCLUDE 234 BEDS AT [facility] Nicotine abuse active 2015-11-14 ProblemAct [facility] Alcohol intoxication (HCC) active EncounterDiagnosisAct [facility] Cocaine use active 2015-11-14 ProblemAct [facility] Alcohol use disorder active EncounterDiagnosisA ct [facility] Hypomagnesemia active EncounterDiagnosisAct [facility] EKG, abnormal active EncounterDiagnosisAct [facility] Shortness of breath active EncounterDiagnosisAc t [facility] Encounters Encounter Type Encounter Reason Primary Diagnosis Location Date Emergency Hypomagnesemia Hypomagnesemia [facility] 01/30/2024 Emergency Alcohol use, unspecified, uncomplicated Alcohol use, unspecified, uncomplicated [facility] 01/28/2024 Ambulatory Shortness of breath Shortness of breath [facility] 09/15/2023 Care Team Organization Name Specialty Phone Email Start Date End Da te [facility] Primary Care 01/28/2024 12/05/2024 [facility] 01/28/2024 [facility] Primary Care [place] [facility] Primary Care 09/16/2023 08/09/2024 [place] [facility] Primary Care 09/15/2023 [place] [facility] [facility] 08/18/2023
--- OUTSIDE RECORDS SUMMARY | 2025-01-19 11:17 | XMS_ITS | Clinical Summary ---
Author Organization [facility] Address [address] [place] [address] Care Team Providers Care Woolen Tester Name Role Phone Mayo Mart MD Primary Care Provider [phone] Allergies No known active allergies Medications Medication Sig Dispensed Refills Start Date End Date Status nicotine (NICODERM CQ) 21 MG/24HRIndications:Ni cotine [facility] 1 patch onto the skin daily as needed (nicotine cessation). OTC 28 patch 0 06/14/2017 Active albuterol 108 (90 Base) MCG/ACT inhaler 0 01/20/2024 Act ramesh Symbicort 160-4.5 MCG/ACT inhaler 0 01/20/2024 Active Eliquis 5 MG TABS tablet Take 1 tablet (5 mg total) by mouth 2 (two) times a day. 0 12/09/2023 Active atorvastatin (LIPITOR) tablet 20 mg Take 1 tablet (20 mg total) by mouth daily. 0 12/21/2023 Active metoprolol tartrate (LOPRESSOR) 50 MG tablet 0 11/17/2023 Active dilTIAZem (CARDIZEM CD) 120 MG 24 hr capsule 0 01/07/2024 Active metFORMIN (GLUCOPHAGE) tablet 500 mgIndications:Type 2 Diabetes Mellitus Take 1 tablet (500 mg total) by mouth 2 (two) times a day with meals. 0 Active LORazepam (ATIVAN) 0.5 MG tablet Take 1 tablet (0.5 mg total) by mouth every 6 (six) hours as needed. 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 06/10/2017 06/14/2017 Family History Medical History Relation Name Comments No Sig Med Hx Brother Heart disease Father Hypertension Father Cancer Sister Relation Name Status Comments Brother Alive Father Mother Sister Social History Tobacco Use Types Packs/Day Years Used Date Smoking Tobacco: Every Day Cigarettes 1.5 15 Smokeless Tobacco: Never Tobacco Cessation:Ready to Q uit: No; Counseling Given: No Alcohol Use Standard Drinks/Week Comments Yes 98 (1 standard drink = 0.6 oz pu re alcohol) 80z vodka Sex and Gender Information Value Date Recorded Sex Assigned at Male 01/30/2024 1:34 AM EDT Gender Identity Not on file Sexual Orientation Not on file Job Start Date Occupation Industry Not on file Not on file Not on file Last Filed Vital Signs Vital Sign Reading Time Taken Comments Blood Pressure 135/83 01/30/2024 12:02 PM EDT Pulse 74 01/30/2024 12:02 PM EDT Temperature 36.8 C (98.2 F) 01/30/2024 12:02 PM EDT Respiratory Rate 18 01/30/2024 12:02 PM EDT Oxygen Saturation 93% 01/30/2024 12:02 PM EDT Inhaled Oxygen Concentration - - Weight 79.4 kg (175 lb) 01/30/2024 1:47 AM EDT Height 172.7 cm (5' 8 ) 01/30/2024 1:47 AM EDT Body Mass Index 26.61 01/30/2024 1:47 AM EDT Plan of Treatment Health Maintenance Due Date Last Done Comments Hepatitis C Screening 1955 Pneumococcal Vaccine (1 of 2 - PCV) 1963 Depression Screening 1969 Preventative Health Evaluation 1975 DTap / Tdap / Td (1 - Tdap) 1976 Colon Cancer Screening (Colonoscopy) 2002 Shingrix-Zoster Vaccine (1 of 2) 2007 Fall Risk Assessment 2022 COVID-19 Vaccine (2 - 2023-2 5 season) 2024 08/27/2020 Influenza Vaccine (#1) 2025 RSV Adult > 60+ Yrs or Pregn ant (1 - 1-dose 75+ series) 2032 Hepatitis B Vaccines Aged Out No long er eligible based on patient's age to complete this topic RSV Ped < 20 months Aged Out No longe r eligible based on patient's age to complete this topic Advance Directives For more information, please contact: [phone] Latest Code Status on File Code Status Date Activated Date Inactivated Comments Full Code 06/10/2017 11:22 AM 06/14/2017 7:25 PM This code status was ascertained in the following way: per unit protocol. Code Status History Code Status Date Activated Date Inactivated Comments Full Code 02/27/2017 5:39 PM 03/03/2017 8:25 PM This code status was ascertained in the following way: Discussion . Full Code 02/26/2017 4:21 PM 02/27/2017 5:39 PM This code status was ascertained in the following way: per unit protocol. Full Code 12/04/2016 3:21 PM 12/07/2016 7:29 PM This code status was ascertained in the following way: per unit protocol. Full Code 09/13/2016 6:21 PM 09/16/2016 5:43 PM This code status was ascertained in the following way: per unit protocol. Care Teams Woolen Tester Relationship Specialty Start Date End Date Mayo Mart MD [address] [place] [address] PCP - General Internal Medicine 02/26/17
--- OUTSIDE RECORDS SUMMARY | 2025-01-19 11:17 | XMS_ITS | Patient Health Record ---
Author Organization Mayo Mrat MD Address [address] [place], [place] [id number] Care Team Providers Care Utility Accounts Director Name Role Phone Mayo aMrt Primary Care Provider Allergies Allergen (clinical drug ingredient) Drug/Non Drug Allergy documented on EMR Reaction Allergy Type Onset Date Status varenicline Chantix anger Drug Allergy Activ e Results Component Value Reference Range Notes Hemoglobin A1c Reviewed date:01/20/2024 02:04:25 PM Interpretation: Performing Lab: Notes/Report: Hemoglobin A1c 10.7 Hemoglobin A1c Reviewed date:03/31/2024 10:46:16 AM Interpretation: Performing Lab: Notes/Report: Hemoglobin A1c 9.1 Hemoglobin A1c Reviewed date:07/04/2024 02:25:42 PM Interpretation: Performing Lab: Notes/Report: Hemoglobin A1c 6.7 Hemoglobin A1c Reviewed date:11/13/2024 01:43:47 PM Interpretation: Performing Lab: Notes/Report: Hemoglobin A1c 7.7 Complete Blood Count Auto Di ff (Not yet reviewed by provider) Interpretation: Performing Lab:[facility], [address] [place] [phone] Notes/Report: White Blood Count 7.2 4.8-10.8 X10*3/uL [...] X10*3/uL NRBC Abs Auto 0.000 0.0-0.012 X10*3/uL Glucose, finger stick Reviewed date:01/20/2024 02:04:06 PM Interpretation: Performing Lab: Notes/Report: Value 312 Glucose, finger stick Reviewed date:02/17/2024 11:27:04 AM Interpretation: Performing Lab: Notes/Report: Value 210 Glucose, finger stick Reviewed date:03/31/2024 10:45:19 AM Interpretation: Performing Lab: Notes/Report: Value 149 Glucose, finger stick Reviewed date:07/04/2024 02:18:26 PM Interpretation: Performing Lab: Notes/Report: Value 170 Glucose, finger stick Reviewed date:11/13/2024 01:37:36 PM Interpretation: Performing Lab: Notes/Report: Value 173 Reason For Referral No Information Medications Medication [...] 500 MG TAKE 2 TABLETS BY M OUT TWICE DAILY for 90 Active Symbicort 160-4.5 MCG/ACT 1 puff as need ed Inhalation every 4 hrs for 30 days 01/20/2024 Active Eliquis 5 MG 1 tablet Orally Twic e a day Active Clobetasol Propionate 0.05 % 1 application Externally Twice a day for 30 days 09/22/2019 Active Atorvastatin Calcium 20 MG 1 tablet Orally Once a day for 30 day(s) Active Flecainide Acetate 100 MG 0.5 tablet Ora lly every 12 hrs for 30 day(s) Not-Taking Immunizations Vaccine Route Administration Date Status Comme nts DECLINED, FLU Unknown 04/25/2013 Administered Fluarix Quadrivalent IM Intramuscular 03/19/2020 Administe red PPSV23 (Pnemovax) Unknown 01/21/2015 Refused Fluarix Quadrivalent Unknown 03/19/2017 Refused TDaP Unknown 11/08/2017 Refused Fluarix Quadrivalent Unknown 02/10/2018 Refused Fluarix Quadrivalent Unknown 03/22/2018 Refused PPSV23 (Pnemovax) Unknown 11/21/2018 Refused Fluarix Quadrivalent Unknown 04/04/2019 Refused Shingrix Unknown 04/14/2019 Refused Fluarix Quadrivalent Unknown 07/09/2022 Refused Fluarix Quadrivalent Unknown 04/12/2023 Refused Fluarix Quadrivalent - 150 Unknown 02/17/2024 Refused Social History Tobacco Use: Social History Observation [...] many cigarettes a day do you smoke? 11-20 How soon after you wake up d o you smoke your first cigarette? Within 5 minutes Are you interested in quitting? Thinking about q uitting Section Notes: stopped drinking a few weeks ago 07-04-24 Patient states stopped drinking 2 weeks ago stopped drinking a few weeks ago stopped drinking a few weeks ago stopped drinking a few weeks ago 07-04-24 Patient states stopped drinking 2 weeks ago Problems Problem Type SNOMED Code ICD Code Onset Dates Problem Status W/U Status Risk Notes Problem Atrial fibrillation (31283885) Atrial fibrillation (I48.91) Active confirmed Problem 935775407 Lung nodule seen on imaging study (R91.1) Active confirmed Problem 868232040 Diverticulitis (K57.92) Active confirmed Problem 1024284 Primary insomnia (F51.01) Active confirmed Problem 158828670 Chronic tension- type headache, not intractable (G44.229) Active confirmed Problem 96349212 Other emphysema (J43.8) Active confirmed Problem 6192783 Diverticulitis o f large intestine without perforation or abscess without bleeding (K57.32) Active confirmed Problem 3414977 Psoriasis (L40.9) Active confirmed Problem 593589832 Labile hypertens ion (I10) Active confirmed Problem 94836731 Current smoker (F17.200) Active confirmed Problem 38803850 Dysthymia (F34.1) Active confirmed Problem 165654698 Pure hypercholesterolemia (E78.00) Active confirmed Problem 4898690 Alcoholism (F10.20) Active confirmed Problem 85483175 Arteriosclerotic coronary artery disease (I25.10) Active confirmed Problem 02312766 Type 2 diabetes mellitus treated without insulin (E11.9) Active confirmed Vital Signs Blood pressure diastolic 70 mm Hg 11/13/2024 Height 67.5 in 11/13/2024 Blood pressure systolic 128 mm Hg 11/13/2024 Weight 171 lbs 11/13/2024 BMI 26.38 kg/m2 11/13/2024 Encounters Encounter Location Date Provider Diagnosis Mayo Mart MD [address] [place] [address] Drive [address] [place] [id number] 01/19/2025 Mayo Mart Blood tests for rout ine general physical examination Z00.00 ; Pure hypercholesterolemia E78.00 ; Labile hypertension I10 and Type 2 diabetes mellitus treated without insulin E11.9 Mayo Mart MD [address] [place] [address] Drive [address] [place] [id number] 01/20/2024 Mayo Mart Labile hypertension I10 ; Encounter for general adult medical examination without abnormal findings Z00.00 ; Current smoker F17.200 ; Other emphysema J43.8 and Type 2 diabetes mellitus treated without insulin E11.9 Mayo Mart MD [address] [place] [id number] 02/17/2024 Mayo Mart Type 2 diabetes armond itus treated without insulin E11.9 ; Alcoholism F10.20 and Atrial fibrillation I48.91 Mayo Mart MD [address] [place] [id number] 03/31/2024 Mayo Mart Type 2 diabetes armond itus treated without insulin E11.9 ; Atrial fibrillation I48.91 ; Alcoholism F10.20 and Labile hypertension I10 Mayo Mart MD [address] [place] [id number] 07/04/2024 Mayo Mart Type 2 diabetes armond itus treated without insulin E11.9 ; Alcoholism F10.20 and Current smoker F17.200 Mayo Mart MD [address] [place] [id number] 11/13/2024 Mayo Mart Type 2 diabetes armond itus treated without insulin E11.9 ; Current smoker F17.200 ; Alcoholism F10.20 and Atrial fibrillation I48.91 Mayo Mart MD [address] [place] [id number] 01/20/2024 Mayo Mart MD [address] [place] [id number] 01/31/2024 Mayo Mart MD [address] [place] [address] [id number] 03/07/2024 Mayo Mart MD [address] [place] [address] [id number] 04/24/2024 Mayo Mart MD [address] [place] [address] [id number] 04/24/2024 Mayo Mart MD [address] [place] [id number] 06/30/2024 Mayo Mart Assessments Encounter Date Diagnosis (ICD Code) Assessment Notes Treatment Notes Treatment Clinical Notes Section Notes 01/19/2025 [address] tests [address] ine general physical examination (ICD-10 - Z00.00) 01/20/2024 Labile hypertension (ICD-10 - I10) doing well today 01/20/2024 Encounter for genera l adult medical examination without abnormal findings (ICD-10 - Z00.00) Labs reviewed and discussed with patient 02/17/2024 Type 2 diabetes mellitus treated without insulin (ICD-10 - E11.9) patient verbalized understanding of change in directions for medication 02/17/2024 Alcoholism (ICD-10 - F10.20) ia sober at present / didn't remember going to [facility] 03/31/2024 Type 2 diabetes mellitus treated without insulin (ICD-10 - E11.9) will continue with medicine. a1c is improving 03/31/2024 Atrial fibrillation (ICD-10 - I48.91) having no complaints 07/04/2024 Type 2 diabetes mellitus treated without insulin (ICD-10 - E11.9) stable, will contnue current regiment 11/13/2024 Type 2 diabetes mellitus treated without insulin (ICD-10 - E11.9) stable, will cntinue current regiment 01/19/2025 Pure hypercholesterolemia (ICD-10 - E78.00) 01/20/2024 Current smoker (ICD- 10 - F17.200) need results from ct chest 12/27/ needs to quit smoking/ request will be sent 02/17/2024 Atrial fibrillation (ICD-10 - I48.91) stable, will cpntinue current regiment 03/31/2024 Alcoholism (ICD-10 - F10.20) needs to get into treatment 07/04/2024 Alcoholism (ICD-10 - F10.20) has been sober for 1.5 weeks 11/13/2024 Current smoker (ICD- 10 - F17.200) not ready to quit 01/19/2025 Labile hypertension (ICD-10 - I10) 01/20/2024 Other emphysema (ICD -10 - J43.8) 03/31/2024 Labile hypertension (ICD-10 - I10) stable, will continue current regiment 07/04/2024 Current smoker (ICD- 10 - F17.200) not ready to quit 11/13/2024 Alcoholism (ICD-10 - F10.20) not drinking yet 01/19/2025 Type 2 diabetes mellitus treated without insulin (ICD-10 - E11.9) 01/20/2024 Type 2 diabetes mellitus treated without insulin (ICD-10 - E11.9) 11/13/2024 Atrial fibrillation (ICD-10 - I48.91) need last note from [facility] Plan Of Treatment Pending Test Test Name Order Date US ABD 07/09/2022 Complete Blood Count Auto Diff 5 Comprehensive Sula. Panel Fast 5 Lipid Panel 01/19/2025 PSA,Total (Free>4and<10) 01/19/2025 Microalbumin, Random 01/19/2025 Hemoglobin A1c 01/19/2025 UA ClnCatch+Micro w/rflx Cult 01/19/2025 Next Appt Details Provider Name:Mayo Cox ier, 02/12/2025 01:45:00 PM, [address] [place] [address], [address], [place], [place], [id number], Insurance Providers Payer Name Payer Address Payer Phone Subscriber Number Group Number Insured Name Patient Relationship to Insured Coverage Start Date Coverage End Date [facility] are [employer] [address] [address] [place] [address] [id number] Boni Espinoza Self - patient is the insured Medical (General) History Medical History History ICD Code colonoscopy 2013 due in 5 years. endosco py was negative. dr barrow ablation for afib
--- OUTSIDE RECORDS SUMMARY | 2025-01-19 11:17 | XMS_ITS | Patient Health Record ---
Author Organization [facility] Address [address] [place] [address] Care Team Providers Care Almond Paste Molder Name Role Phone Mayo Mart MD Primary Care Provider Delano Weir Jr Unavailable Allergies No Known Allergies Results Component Value Reference Range Notes Complete Blood Count Auto Di ff Reviewed date:03/03/2024 04:48:40 PM Interpretation: Performing Lab:[facility], [address] [place] [phone] Notes/Report: White Blood Count 8.1 4.8-10.8 X10*3/uL Red Blood Count 4.96 4.60-5.80 X10*6/uL Hemoglobin 16.0 14.0-18.0 g/dl Hematocrit 46.4 42.0-52.0 % Mean Corpuscular Volume 93.5 80.0-98.0 fL Mean Corpuscular Hemoglobin 32.3 27.0-33.0 pg Mean Corpuscular HGB Conc 34.5 31.0-36.0 g/dl Red Cell Distribution Width 13.2 11.0-16.0 % Platelet Count 231 160-400 X10*3/uL Mean Platelet Volume 9.8 9.4-12.4 fL Neutrophils Percent Auto 65.1 45-73 % Imm Gran Pct Auto 0.5 0.0-0.4 % Lymphocytes Percent Auto 22.0 20-40 % Monocytes Percent Auto 9.9 2-11 % Eosinophils Percent Auto 1.5 0-4 % Basophils Percent Auto 1.0 0-2 % NRBC Pct Auto 0.0 0.0-0.2 /100WBC Neutrophils Absolute Auto 5.2 2.0-8.3 x10*3/u L Imm Gran Abs Auto 0.04 0.00-0.03 X10*3/uL Lymphocytes Absolute Auto 1.8 1.2-4.9 X10*3/u L Monocytes Absolute Auto 0.8 0.1-1.2 X10*3/uL Eosinophils Absolute Auto 0.1 0.0-0.4 X10*3/u L Basophils Absolute Auto 0.1 0.0-0.2 X10*3/uL NRBC Abs Auto 0.000 0.0-0.012 X10*3/uL Basic Metabolic Panel Fastin g Reviewed date:03/03/2024 04:48:31 PM Interpretation: Performing Lab:[address] [phone] Notes/Report: Sodium 139 135-145 mmol/L Potassium 4.8 3.3-5.1 mmol/L Chloride 104 96-108 mmol/L Carbon Dioxide 26 22-29 mmol/L Anion Gap 14 12-20 Blood Urea Nitrogen 13 9-16 mg/dL Creatinine 1.05 0.5-1.4 mg/dL Creatinine Clr Calc Pharmacy 66.9 eGFR (calculated from the MDRD study equation) and eCrCl (calculated from the Cockcroft-Gault equation) are based on different parameters and may not yield comparable results. If eCrCl result is absurd, please check patient's height/weight. Estimated Glomerular Filt Rate > 60 NOTE: For -[place]az[place] individuals, multiply the result by 1.210. Chronic Kidney Disease: Estimated GFR < 60 mL/min/1.73m2 Severe Kidney Disease: Estimated GFR < 15 mL/min/1.73m2 Glucose Fasting 148 60-99 mg/dL A fasting glucose of 126 mg/dl or greater on more than one occasion is considered diagnostic of diabetes. Calcium 9.3 8.4-10.2 mg/dL Magnesium Reviewed date:03/03/2024 04:48:02 PM Interpretation: Performing Lab:[address] [phone] Notes/Report: Magnesium 1.6 1.6-2.6 mg/dL Thyroid Stimulating Hormone Reviewed date:03/03/2024 04:48:11 PM Interpretation: Performing Lab:[facility], [address] [place] [address] Notes/Report: Thyroid Stimulating Hormone 1.23 0.32-4.0 uIU/ mL TSH 3rd Generation ([facility]) Reason For Referral No Information Medications Medication SIG (Take, Route, Frequency, Duration) Notes Start Date End Date Status metFORMIN HCl 500 MG Oral for 90 Active Melatonin 3 MG 1 tablet at bedtime as needed Orally Once a day for 30 day(s) Active Atorvastatin Calcium 20 MG Oral for 90 Active dilTIAZem HCl ER Coated Beads 120 MG Oral for 60 Active Metoprolol Tartrate 50 MG Oral for 90 Active Eliquis 5 MG Oral for 90 Activ e Immunizations Vaccine Route Administration Date Status Comme nts Influenza Unknown 02/14/2024 Refused Social History Tobacco Use: Social History Observation Description Date Details (start date - stop date) Current Smoker NA - NA Tobacco Use/Smoking Question Answer Notes Patient is a current smoker Alcohol Screen Question Answer Notes Did you have a drink containing alcohol in the p ast year? No Points 0 Interpretation Negative Problems Problem Type SNOMED Code ICD Code Onset Dates Problem Status W/U Status Risk Notes Problem 208336048 Colon cancer screening (Z12.11) Active confirmed Problem 662779092 jail (curre nt) use of anticoagulants (Z79.01) Active confirmed Problem 678105389 Encounter for ot her preprocedural examination (Z01.818) Active confirmed Vital Signs Temperature 97.1 degrees Fahrenheit 02/14/2024 Blood pressure diastolic 00 mm Hg 02/14/2024 Height 5 ft 8 in in 02/14/2024 Blood pressure systolic 000 mm Hg 02/14/2024 Weight 171 lb 6 oz lbs 02/14/2024 BMI 26.05 kg/m2 02/14/2024 Encounters Encounter Location Date Provider Diagnosis [facility] [address] [place] [phone] 02/14/2024 Delano Roa Jr Colon cancer screening Z12.11 ; Encounter for other preprocedural examination Z01.818 and jail (current) use of anticoagulants Z79.01 [facility] [address] [place] [phone] 02/14/2024 Delano Roa Jr [facility] [address] [place] [address] 02/16/2024 Delano Roa Jr [facility] [address] [place] [address] 03/08/2024 Delano Roa Jr Assessments Encounter Date Diagnosis (ICD Code) Assessment Notes Treatment Notes Treatment Clinical Notes Section Notes 02/14/2024 Colon cancer screening (ICD-10 - Z12.11) We discussed colonoscopy today. We discussed risks and benefits of the procedure today. He understands these and agrees to proceed. He is advised to stop Eliquis 3 days before the procedure and metformin the day before the procedure. 02/14/2024 Encounter for other preprocedural examination (ICD-10 - Z01.818) Colonoscopy material was printed We discussed colonoscopy today. We discussed risks and benefits of the procedure today. He understands these and agrees to proceed. He is advised to stop Eliquis 3 days before the procedure and metformin the day before the procedure. 02/14/2024 jail (current) use of anticoagulants (ICD-10 - Z79.01) We discussed colonoscopy today. We discussed risks and benefits of the procedure today. He understands these and agrees to proceed. He is advised to stop Eliquis 3 days before the procedure and metformin the day before the procedure. Plan Of Treatment Future Test Test Name Order Date COLONOSCOPY 02/14/2024 Insurance Providers Payer Name Payer Address Payer Phone Subscriber Number Group Number Insured Name Patient Relationship to Insured Coverage Start Date Coverage End Date [facility] [address] [place] [address] [id number] ALEXANDRIA NICHOLAS Self - patient is the insured Medical (General) History Medical History History ICD Code Atrial fibrillation COPD Coronary artery calcifications Hepatic steatosis Alcohol abuse, in remission Elevated blood sugar Surgical History Surgery Date(Month/Year) Cholecystectomy Hospitalization History Reason Date(Month/Year)
[2025-01-19 11:39] LABS: Alanine Aminotransferase 31 U/L (0-40); Albumin Level 3.7 g/dL (3.5-5.0); Alkaline Phosphatase 63 U/L (39-117); Anion Gap 13 (12-20); Aspartate Amino Transferase 39 U/L (5-37); Blood Urea Nitrogen 9 mg/dL (9-16); Calcium 9.7 mg/dL (8.4-10.2); Carbon Dioxide 28 mmol/L (22-29); Chloride 105 mmol/L (96-108); Cholesterol 144 mg/dL (<200); Estimated Glomerular Filt Rate > 60; HDL Cholesterol 75 mg/dL (>40); Potassium 4.6 mmol/L (3.3-5.1); Sodium 141 mmol/L (135-145); Total Protein 7.2 g/dL (6.5-8.0); Triglycerides 92 mg/dL (<150)
[2025-01-19 11:40] LABS: Hemoglobin A1C 277.9505 umol/L; Total Hemoglobin (HGBA1C) 4075.7493 umol/L
[2025-01-19 12:06] LABS: PSA,Total (Free>4and<10) 0.39 ng/mL (0.00-4.00)
[2025-01-19 12:08] LABS: Microalbum/Creatinine Ratio Ur 43.7 ug/mg cr (<30)
== END 2025-01-19 10:38 | disposition home or self-care (01) ==
LOC: HO.LNP 10:37
PROVIDERS: Visit Provider Internal Medicine
DX: Z00.00 Encounter for general adult medical examination without abnormal findings (principal); Z12.5 Encounter for screening for malignant neoplasm of prostate; E78.00 Pure hypercholesterolemia, unspecified; I10 Essential (primary) hypertension; E11.9 Type 2 diabetes mellitus without complications
CPT/HCPCS: 80053; 80061; 81001; 82043; 82570; 83036; 84153; 85025

== ENCOUNTER 2025-05-02 16:02 | Outpatient (REF) | payer MEDICARE, SELFPAY ==
--- OUTSIDE RECORDS SUMMARY | 2024-05-01 12:00 | XMS_ITS ---
Author Organization Mayo Mart MD Address [address] [place] [phone] Care Team Providers Care Elementary [employer] Counselor Name Role Phone Mayo Mart Primary Care Provider Allergies Allergen (clinical drug ingredient) Drug/Non Drug Allergy documented on EMR Reaction Allergy Type Onset Date Status varenicline Chantix anger Drug Allergy Activ e REASON FOR VISIT PH/TCM Medications Medication SIG (Take, Route, Frequency, Duration) Notes Start Date End Date Status metFORMIN HCl 500 MG 2 tabs Orally twice a day Active Symbicort 160-4.5 MCG/ACT 1 puff as need ed Inhalation every 4 hrs for 30 days 01/20/2024 Active Metoprolol Tartrate 50 MG 1 tablet with food Orally Twice a day Active dilTIAZem HCl 120 MG 2 tabs Orally once a day Active Eliquis 5 MG 1 tablet Orally Twic e a day Active Albuterol Sulfate HFA 108 (90 Base) MCG/ACT 1 puff as needed Inhalation every 4 hrs for 30 days 01/20/2024 Active Clobetasol Propionate 0.05 % 1 application Externally Twice a day for 30 days 09/22/2019 Active Atorvastatin Calcium 20 MG 1 tablet Oral ly Once a day for 30 day(s) Active Flecainide Acetate 100 MG 0.5 tablet Ora lly every 12 hrs for 30 day(s) Active Encounters Encounter Location Date Provider Diagnosis Mayo Mart MD [address] [place] [phone] 05/01/2024 Mayo Mart Plan Of Treatment Next Appt Details Provider Name:Mayo Cox ier, 05/21/2025 01:30:00 PM, [address], [address], [place], [place], [phone], Provider Name:Mayo Cox ier, 08/10/2025 08:15:00 AM, [address] [facility], [address], [place], [phone], Provider Name:Mayo Cox ier, 08/17/2025 01:30:00 PM, [address] [place] [address] Drive, Suite [facility], [place], [place], [phone], Provider Name:Mayo Cox ier, 02/08/2026 08:00:00 AM, [address] [place] [address], Suite [facility], [place], [place], [phone], Provider Name:Mayo Cox ier, 02/15/2026 02:30:00 PM, [address] [place] [address], Suite [facility], [place], [place], [phone], Progress Notes * Boni ESPINOZA WDOB: (69 yo M)Acc No.[id number]:05/01/2024 Patient: Boni MORILLO Provider: Preet Mart MD :1955 A ge:68 Y S ex:Male Date:05/01/2024 Address:[address] [place] [address], [phone] Subjective: * Chief Complaints: * 1 . PH/TCM. * ROS: G eneral/Constitutional: Denies C hills. D enies F atigue. D enies F ever. D enies H eadache. E NT: Denies S ore throat. R espiratory: Denies C ough. D enies S hortness of breath at rest. D enies S hortness of breath with exertion. G astrointestinal: Denies D iarrhea. D enies N ausea. * Medical History: C olonoscopy 2013 due in 5 years. endoscopy was negative. dr barrow. * Medications: T aking Flecainide Acetate 100 MG Tablet 0.5 tablet Orally every 12 hrs , Taking Atorvastatin Calcium 20 MG Tablet 1 tablet Orally Once a day , Taking Clobetasol Propionate 0.05 % Cream 1 application Externally Twice a day , Taking Albuterol Sulfate HFA 108 (90 Base) MCG/ACT Aerosol Solution 1 puff as needed Inhalation every 4 hrs , Taking Symbicort 160-4.5 MCG/ACT Aerosol 1 puff as needed Inhalation every 4 hrs , Taking metFORMIN HCl 500 MG Tablet 2 tabs Orally twice a day , Taking Eliquis 5 MG Tablet 1 tablet Orally Twice a day , Taking dilTIAZem HCl 120 MG Tablet 2 tabs Orally once a day , Taking Metoprolol Tartrate 50 MG Tablet 1 tablet with food Orally Twice a day * Allergies: C hantix: anger. Objective: * Vitals: Assessment: Plan: * Treatment: * * The named appointment provid er may or may not be the originator of this progress note, and it is not deemed complete until electronically signed by the appointment provider. Sign off status: Pending * Provider: Preet Mart MD Date: 07/02/2023 Generated for Jovi quezada/Edenilson/Brianna on: 07/04/2024 12:44 AM EST
--- OUTSIDE RECORDS SUMMARY | 2024-06-30 03:13 | XMS_ITS ---
Author Organization Mayo Mart MD Address 10 [facility] [address] [place] [phone] Care Team Providers Care Culinary Manager Name Role Phone Mayo Mart Primary Care Provider REASON FOR VISIT ER visit rec'd Encounters Encounter Location Date Provider Diagnosis Mayo Mart MD [address] [place] [address] [address] [place] [phone] 06/30/2024 Mayo Mart Plan Of Treatment Next Appt Details Provider Name:Mayo parson, 05/21/2025 01:30:00 PM, [address] [place] [address], [address], [phone], Provider Name:Mayo parson, 08/10/2025 08:15:00 AM, [address] [place] [address], [address], [phone], Provider Name:Mayo parson, 08/17/2025 01:30:00 PM, [address] [place] [address], [address], [phone], Provider Name:Mayo Cox ier, 02/08/2026 08:00:00 AM, [address] [place] [address], [address], [phone], Provider Name:Mayo Cox iedavid, 02/15/2026 02:30:00 PM, [address] [place] [address], [address], [phone], Progress Notes * Boni ESPINOZA WDOB: 8 (69 yo M)Acc No.[id number]:06/30/2024 Patient: Boni MORILLO :1955 A ge:69 Y S ex:Male Address:[address] [place] [phone] * true * Date: Generated for Jovi quezada/Edenilson/Enitting on: 07/04/2024 12:43 AM EST
--- OUTSIDE RECORDS SUMMARY | 2024-07-04 09:15 | XMS_ITS ---
Author Organization Mayo Mart MD Address [address] [place] [phone] Care Team Providers Care Key Operator Name Role Phone Mayo Mart Primary Care Provider Allergies Allergen (clinical drug ingredient) Drug/Non Drug Allergy documented on EMR Reaction Allergy Type Onset Date Status varenicline Chantix anger Drug Allergy Activ e Results Component Value Reference Range Notes Hemoglobin A1c Reviewed date:07/04/2024 02:25:42 PM Interpretation: Performing Lab: Notes/Report: Hemoglobin A1c 6.7 Glucose, finger stick Reviewed date:07/04/2024 02:18:26 PM Interpretation: Performing Lab: Notes/Report: Value 170 REASON FOR VISIT 3 month Medications Medication SIG (Take, Route, Frequency, Duration) Notes Start Date End Date Status metFORMIN HCl 500 MG 2 tabs Orally twice a day Active Metoprolol Tartrate 50 MG 1 tablet with food Orally Twice a day Active dilTIAZem HCl 120 MG 2 tabs Orally once a day Active Albuterol Sulfate HFA 108 (90 Base) MCG/ACT INHALE 1 PUFF BY MOUTH EVERY 4 HOURS NEEDED for 33 Active Eliquis 5 MG 1 tablet Orally Twic e a day Active Flecainide Acetate 100 MG 0.5 tablet Ora lly every 12 hrs for 30 day(s) Active Clobetasol Propionate 0.05 % 1 application Externally Twice a day for 30 days 09/22/2019 Active Atorvastatin Calcium 20 MG 1 tablet Oral ly Once a day for 30 day(s) Active Symbicort 160-4.5 MCG/ACT 1 puff as need ed Inhalation every 4 hrs for 30 days 01/20/2024 Active Social History Tobacco Use: Social History Observation Description Date Details (start date - stop date) Current Smoker NA - NA Alcohol Screen Question Answer Notes Did you have a drink contain ing alcohol in the past year? Yes How often did you have a dri nk containing alcohol in the past year? 4 or more times a week (4 points) How many drinks did you have on a typical day when you were drinking in the past year? 3 or 4 drinks (1 point) How often did you have 6 or more drinks on one occasion in the past year? Never (0 point) Points 5 Interpretation Positive Tobacco Control (Standard) Question Answer Notes Tobacco use: Current smoker How often do you smoke cigarettes? Every day How many cigarettes a day do you smoke? 04-12 How soon after you wake up d o you smoke your first cigarette? Within 5 minutes Are you interested in quitting? Thinking about q uitting Section Notes: stopped drinking a few weeks ago 07-04-24 Patient states stopped drinking 2 weeks ago Vital Signs Blood pressure systolic 94 mm Hg 07/04/19 25 Blood pressure diastolic 60 mm Hg 025 Height 67.5 in 07/04/2024 Weight 170 lbs 07/04/2024 BMI 26.23 kg/m2 07/04/2024 Encounters Encounter Location Date Provider Diagnosis Mayo Mart MD [address] [place] [address] [place] [phone] 07/04/2024 Mayo Mart Type 2 diabetes mellitus treated without insulin E11.9 ; Alcoholism F10.20 and Current smoker F17.200 Assessments Encounter Date Diagnosis (ICD Code) Assessment Notes Treatment Notes Treatment Clinical Notes Section Notes 07/04/2024 Type 2 diabetes mellitus treated without insulin (ICD-10 - E11.9) stable, will contnue current regiment 07/04/2024 Alcoholism (ICD-10 - F10.20) has been sober for 1.5 weeks 07/04/2024 Current smoker (ICD-10 - F17.200) not ready to quit Plan Of Treatment Medication Medication Name Sig Start Date Stop Date Notes metFORMIN HCl 500 MG 2 tabs Orally twice a day 01/20/2024 Treatment Notes Assessment Notes Type 2 diabetes mellitus herman ated without insulin stable, will contnue current regiment Alcoholism has been sober for 1 .5 weeks Current smoker not ready to quit Next Appt Details Follow Up: 3 Months, Reason: Provider Name:Mayo parson, 05/21/2025 01:30:00 PM, [address], [address], [place], [place], [phone], Provider Name:Mayo Cox ier, 08/10/2025 08:15:00 AM, [address], [address], [place], [phone], Provider Name:Mayo Cox ier, 08/17/2025 01:30:00 PM, [address], Suite [facility], [place], [place], [phone], Provider Name:Mayo Cox ier, 02/08/2026 08:00:00 AM, [address], Suite [facility], [place], [phone], Provider Name:Mayo Cox ier, 02/15/2026 02:30:00 PM, [address] [place] [address], Suite [facility], [place], [place], [phone], Progress Notes * Boni ESPINOZA WDOB: 8 (69 yo M)Acc No.[id number]:07/04/2024 Progress Notes Patient: Boni MORILLO Provider: Preet Mart MD :1955 A ge:69 Y S ex:Male Date:07/04/2024 Address:[address] [place] [id number] Subjective: * Chief Complaints: * 3 month * HPI: S ymptom(s): patient is a 69 yo male here for 3 month follow up visit from the hospital. had taken morphine that he thought was librium. not drinking for 1.5 weeks/ is getting ablation in month. * ROS: G eneral/Constitutional: Denies C hills. D enies F atigue. D enies F ever. D enies H eadache. E NT: Patient denies d ecreased sense of smell, any loss of taste, sore throat. D enies S ore throat. R espiratory: Denies C ough. D enies P ain with inspiration. G astrointestinal: Denies D iarrhea. D enies N ausea. M usculoskeletal: Patient denies m uscle aches. P eripheral Vascular: Patient denies r ed and blue toes. * Medical History: * Surgical History: * Hospitalization/Major Diagno stic Procedure: * Social History: T obacco Use: T obacco Control (Standard) T obacco use: C urrent smoker, H ow often do you smoke cigarettes? E very day, H ow many cigarettes a day do you smoke? 1 -20, H ow soon after you wake up do you smoke your first cigarette? W ithin 5 minutes, A re you interested in quitting? T hinking about quitting. D rugs/Alcohol: A lcohol Screen D id you have a drink containing alcohol in the past year? Y es, H ow often did you have a drink containing alcohol in the past year? 4 or more times a week (4 points), H ow many drinks did you have on a typical day when you were drinking in the past year? 3 or 4 drinks (1 point), H ow often did you have 6 or more drinks on one occasion in the past year? N ever (0 point), P oints 5 , I nterpretation P ositive. s topped drinking a few weeks ago 07-04-24 Patient states stopped drinking? 2 weeks ago. * Medications: T akingFlecainide Acetate 100 MG Tablet 0.5 tablet Orally every 12 hrs Atorvastatin Calcium 20 MG Tablet 1 tablet Orally Once a day Clobetasol Propionate 0.05 % Cream 1 application Externally Twice a day Symbicort 160-4.5 MCG/ACT Aerosol 1 puff as needed Inhalation every 4 hrs metFORMIN HCl 500 MG Tablet 2 tabs Orally twice a day Eliquis 5 MG Tablet 1 tablet Orally Twice a day dilTIAZem HCl 120 MG Tablet 2 tabs Orally once a day Metoprolol Tartrate 50 MG Tablet 1 tablet with food Orally Twice a day Albuterol Sulfate HFA 108 (90 Base) MCG/ACT Aerosol Solution INHALE 1 PUFF BY MOUTH EVERY 4 HOURS NEEDED Medication List reviewed and reconciled with the patientTaking Flecainide Acetate 100 MG Tablet 0.5 tablet Orally every 12 hrs Taking Atorvastatin Calcium 20 MG Tablet 1 tablet Orally Once a day Taking Clobetasol Propionate 0.05 % Cream 1 application Externally Twice a day Taking Symbicort 160-4.5 MCG/ACT Aerosol 1 puff as needed Inhalation every 4 hrs Taking metFORMIN HCl 500 MG Tablet 2 tabs Orally twice a day Taking Eliquis 5 MG Tablet 1 tablet Orally Twice a day Taking dilTIAZem HCl 120 MG Tablet 2 tabs Orally once a day Taking Metoprolol Tartrate 50 MG Tablet 1 tablet with food Orally Twice a day Taking Albuterol Sulfate HFA 108 (90 Base) MCG/ACT Aerosol Solution INHALE 1 PUFF BY MOUTH EVERY 4 HOURS NEEDED Medication List reviewed and reconciled with the patient * Allergies: C acaciatix: val[Allergies Verified] Objective: * Vitals: H t: 67.5, Wt: 170, BMI:26.23, BP:94/60, Wt-k.11. * Examination: G eneral Examination: GENERAL APPEARANCE: a lert, well hydrated, in no distress.? HEAD: n ormocephalic. SKIN: g ood turgor. HEART: n o murmurs, rubs, gallops, regular rate and rhythm.? LUNGS: n o wheezes, rales, rhonchi, clear to auscultation bilaterally, good air movement. Assessment: * Assessment: 1. T ype 2 diabetes mellitus treated without insulin - E11.9 (Primary) 2 . A lcoholism - F10.20 3 . C urrent smoker - F17.200 Plan: * Treatment: Value Reference Range H emoglobin A1c 6.7 ?LAB: Glucose, finger stick (Collection Date & Time - 07/04/2024)* Value Reference Range V alue 170 Notes: stable, will contnue current regiment??2.?Alcoholism? Notes: has been sober for 1.5 weeks??3.?Current smoker? Notes: not ready to quit?? * Procedure Codes: 8 2947 ASSAY, GLUCOSE, BLOOD QUANT, Modifiers: QW 44823 GLYCATED HEMOGLOBIN TEST, Modifiers: QW * Follow Up: 3 Months * * Sign off status: Completed true * Provider: Preet Mart MD Date: 0 07/04/2024 Generated for Jovi quezada/Edenilson/eTransmitting on: 1 07/04/2024 12:45 AM EST History and Physical Notes * HPI (History of Present Illness) Category Sub-Category Detail Notes Category Not es Symptom(s) patient is a 69 yo male here for 3 month follow up visit from the hospital. had taken morphine that he thought was librium. not drinking for 1.5 weeks/ is getting ablation in month Examination Category Sub-Category Detail Notes Category Not es General Examination GENERAL APPEARANCE: alert, w ell hydrated, in no distress HEAD: normocephalic HEART: no murmurs, rubs, ga llops, regular rate and rhythm LUNGS: no wheezes, rales, r honchi, clear to auscultation bilaterally, good air movement SKIN: good turgor
--- OUTSIDE RECORDS SUMMARY | 2024-11-13 08:45 | XMS_ITS ---
Author Organization Mayo Mart MD Address [address] [place] [phone] Care Team Providers Care Embedded Software Development Engineer Name Role Phone Mayo Mart Primary Care Provider [phone] Allergies Allergen (clinical drug ingredient) Drug/Non Drug Allergy documented on EMR Reaction Allergy Type Onset Date Status varenicline Chantix anger Drug Allergy Activ e Results Component Value Reference Range Notes Hemoglobin A1c Reviewed date:11/13/2024 01:43:47 PM Interpretation: Performing Lab: Notes/Report: Hemoglobin A1c 7.7 Glucose, finger stick Reviewed date:11/13/2024 01:37:36 PM Interpretation: Performing Lab: Notes/Report: Value 173 REASON FOR VISIT 3 MO F/U Medications Medication SIG (Take, Route, Frequency, Duration) Notes Start Date End Date Status Albuterol Sulfate HFA 108 (90 Base) MCG/ACT INHALE 1 PUFF BY MOUTH EVERY 4 HOURS NEEDED for 33 Active Metoprolol Tartrate 50 MG 1 tablet with food Orally Twice a day Active dilTIAZem HCl 120 MG 2 tabs Orally once a day Active metFORMIN HCl 500 MG TAKE 2 TABLETS BY M OUTH TWICE DAILY Active Eliquis 5 MG 1 tablet Orally Twic e a day Active Symbicort 160-4.5 MCG/ACT 1 puff as need ed Inhalation every 4 hrs for 30 days 01/20/2024 Active Clobetasol Propionate 0.05 % 1 application Externally Twice a day for 30 days 09/22/2019 Active Atorvastatin Calcium 20 MG 1 tablet Orally Once a day for 30 day(s) Active Flecainide Acetate 100 MG 0.5 tablet Ora lly every 12 hrs for 30 day(s) Not-Taking Vital Signs Blood pressure systolic 128 mm Hg 11/14/19 25 Blood pressure diastolic 70 mm Hg 025 Height 67.5 in 11/13/2024 Weight 171 lbs 11/13/2024 BMI 26.38 kg/m2 11/13/2024 Encounters Encounter Location Date Provider Diagnosis Mayo Mart MD [address] [place] [phone] 11/13/2024 Mayo Mart Type 2 diabetes mellitus treated without insulin E11.9 ; Current smoker F17.200 ; Alcoholism F10.20 and Atrial fibrillation I48.91 Assessments Encounter Date Diagnosis (ICD Code) Assessment Notes Treatment Notes Treatment Clinical Notes Section Notes 11/13/2024 Type 2 diabetes mellitus treated without insulin (ICD-10 - E11.9) stable, will cntinue current regiment 11/13/2024 Current smoker (ICD-10 - F17.200) not ready to quit 11/13/2024 Alcoholism (ICD-10 - F10.20) not drinking yet 11/13/2024 Atrial fibrillation (ICD-10 - I48.91) need last note from [facility] Plan Of Treatment Medication Medication Name Sig Start Date Stop Date Notes metFORMIN HCl 500 MG TAKE 2 TABLETS BY MOUTH TWICE DAILY Eliquis 5 MG 1 tablet Orally Twice a day Treatment Notes Assessment Notes Type 2 diabetes mellitus herman ated without insulin stable, will cntinue current regiment Current smoker not ready to quit Alcoholism not drinking yet Atrial fibrillation need last note from [facility] Next Appt Details Provider Name:Mayo parson, 05/21/2025 01:30:00 PM, [address] [place] [address], [address], [phone], Provider Name:Mayo parson, 08/10/2025 08:15:00 AM, [address] [place] [address], [address], [phone], Provider Name:Mayo parson, 08/17/2025 01:30:00 PM, [address] [place] [address], [phone], Provider Name:Mayo parson, 02/08/2026 08:00:00 AM, [address] [place] [address], [phone], Provider Name:Mayo Cox ier, 02/15/2026 02:30:00 PM, [address], [address], [place], [phone], Progress Notes * Boni ESPINOZA WDOB: 8 (69 yo M)Acc No.[id number]:11/13/2024 Progress Notes Patient: Boni MORILLO Provider: Preet Mart MD :1955 A ge:69 Y S ex:Male Date:11/13/2024 Address:[address] [place] [address] [place], [id number] Subjective: * Chief Complaints: * 3 MO F/U * HPI: S ymptom(s): patient is a 69 yo male here for 3 month follow up/ was sick for month and half. feels fine now. * ROS: G eneral/Constitutional: Denies C hills. D enies F atigue. D enies F ever. D enies H eadache. E NT: Denies S ore throat. E ndocrine: Denies D ifficulty sleeping. D enies D izziness.?Admits E xcessive sweating. D enies E xcessive thirst. D enies F requent urination. R espiratory: Denies C ough. D enies S hortness of breath at rest. D enies S hortness of breath with exertion. G astrointestinal: Denies D iarrhea. D enies N ausea. * Medical History: * Surgical History: * Hospitalization/Major Diagno stic Procedure: * Medications: T akingAtorvastatin Calcium 20 MG Tablet 1 tablet Orally Once a day Clobetasol Propionate 0.05 % Cream 1 application Externally Twice a day Symbicort 160-4.5 MCG/ACT Aerosol 1 puff as needed Inhalation every 4 hrs Eliquis 5 MG Tablet 1 tablet Orally Twice a day dilTIAZem HCl 120 MG Tablet 2 tabs Orally once a day Metoprolol Tartrate 50 MG Tablet 1 tablet with food Orally Twice a day Albuterol Sulfate HFA 108 (90 Base) MCG/ACT Aerosol Solution INHALE 1 PUFF BY MOUTH EVERY 4 HOURS NEEDED metFORMIN HCl 500 MG Tablet TAKE 2 TABLETS BY MOUTH TWICE DAILY Taking Atorvastatin Calcium 20 MG Tablet 1 tablet Orally Once a day Taking Clobetasol Propionate 0.05 % Cream 1 application Externally Twice a day Taking Symbicort 160-4.5 MCG/ACT Aerosol 1 puff as needed Inhalation every 4 hrs Taking Eliquis 5 MG Tablet 1 tablet Orally Twice a day Taking dilTIAZem HCl 120 MG Tablet 2 tabs Orally once a day Taking Metoprolol Tartrate 50 MG Tablet 1 tablet with food Orally Twice a day Taking Albuterol Sulfate HFA 108 (90 Base) MCG/ACT Aerosol Solution INHALE 1 PUFF BY MOUTH EVERY 4 HOURS NEEDED Taking metFORMIN HCl 500 MG Tablet TAKE 2 TABLETS BY MOUTH TWICE DAILY Not-Taking/PRNFlecainide Acetate 100 MG Tablet 0.5 tablet Orally every 12 hrs Not-Taking/PRN Flecainide Acetate 100 MG Tablet 0.5 tablet Orally every 12 hrs * Allergies: C irvingx: val[Allergies Verified] Objective: * Vitals: H t: 67.5, Wt: 171, BMI:26.38, BP:128/70, Wt-k.57. * Examination: G eneral Examination: GENERAL APPEARANCE: a lert, well hydrated, in no distress.? HEAD: n ormocephalic. SKIN: g ood turgor. HEART: r egular rate and rhythm, no murmurs, rubs, gallops.? LUNGS: d iminished breath sounds throughout, scattered wheezes throughout. ABDOMEN: s oft, nontender, nondistended, no rebound tenderness, no organomegaly. Assessment: * Assessment: 1. T ype 2 diabetes mellitus treated without insulin - E11.9 (Primary) 2 . C urrent smoker - F17.200 3 . A lcoholism - F10.20 4 . A trial fibrillation - I48.91 Plan: * Treatment: Value Reference Range H emoglobin A1c 7.7 ?LAB: Glucose, finger stick (Collection Date & Time - 11/13/2024)* Value Reference Range V alue 173 Notes: stable, will cntinue current regiment??2.?Current smoker? Notes: not ready to quit??3.?Alcoholism? Notes: not drinking yet??4.?Atrial fibrillation? Continue Eliquis Tablet, 5 MG, 1 tablet, Orally, Twice a day.?? Notes: need last note from [facility]?? * Procedure Codes: 8 2947 ASSAY, GLUCOSE, BLOOD QUANT, Modifiers: QW 17641 GLYCATED HEMOGLOBIN TEST, Modifiers: QW * * Sign off status: Completed true * Provider: Preet Mart MD Date: 0 11/13/2024 Generated for Jovi quezada/Edenilson/eTransmitting on: 1 07/04/2024 12:45 AM EST History and Physical Notes * HPI (History of Present Illness) Category Sub-Category Detail Notes Category Not es Symptom(s) patient is a 69 yo male here for 3 month follow up/ was sick for month and half. feels fine now Examination Category Sub-Category Detail Notes Category Not es General Examination GENERAL APPEARANCE: alert, w ell hydrated, in no distress HEAD: normocephalic HEART: regular rate and rhy thm, no murmurs, rubs, gallops LUNGS: diminished breath so unds throughout, scattered wheezes throughout ABDOMEN: soft, nontender, non distended, no rebound tenderness, no organomegaly SKIN: good turgor
--- OUTSIDE RECORDS SUMMARY | 2025-01-19 04:00 | XMS_ITS ---
Author Organization Mayo Mart MD Address [address] [place], [place] [id number] Care Team Providers Care Cognos Bi Developer Name Role Phone Mayo Mart Primary Care Provider Results Component Value Reference Range Notes Complete Blood Count Auto Di ff Reviewed date:01/19/2025 06:51:07 PM Interpretation: Performing Lab:[facility], [address] [place] [phone] Notes/Report: White Blood Count 7.2 4.8-10.8 X10*3/uL Red Blood Count 5.00 4.60-5.80 X10*6/uL Hemoglobin 15.5 14.0-18.0 g/dl Hematocrit 47.4 42.0-52.0 % Mean Corpuscular Volume 94.8 80.0-98.0 fL Mean Corpuscular Hemoglobin 31.0 27.0-33.0 pg Mean Corpuscular HGB Conc 32.7 31.0-36.0 g/dl Red Cell Distribution Width 15.3 11.0-16.0 % Platelet Count 241 160-400 X10*3/uL Mean Platelet Volume 10.2 9.4-12.4 fL Neutrophils Percent Auto 64.5 45-73 % Imm Gran Pct Auto 0.6 0.0-0.4 % Lymphocytes Percent Auto 20.9 20-40 % Monocytes Percent Auto 10.2 2-11 % Eosinophils Percent Auto 2.6 0-4 % Basophils Percent Auto 1.2 0-2 % NRBC Pct Auto 0.0 0.0-0.2 /100WBC Neutrophils Absolute Auto 4.7 2.0-8.3 x10*3/u L Imm Gran Abs Auto 0.04 0.00-0.03 X10*3/uL Lymphocytes Absolute Auto 1.5 1.2-4.9 X10*3/u L Monocytes Absolute Auto 0.7 0.1-1.2 X10*3/uL Eosinophils Absolute Auto 0.2 0.0-0.4 X10*3/u L Basophils Absolute Auto 0.1 0.0-0.2 X10*3/uL NRBC Abs Auto 0.000 0.0-0.012 X10*3/uL Comprehensive [place]. Panel Fa st Reviewed date:01/19/2025 06:44:30 PM Interpretation: Performing Lab:[facility], [address] [place] [phone] Notes/Report: Sodium 141 135-145 mmol/L Potassium 4.6 3.3-5.1 mmol/L Chloride 105 96-108 mmol/L Carbon Dioxide 28 22-29 mmol/L Anion Gap 13 12-20 Blood Urea Nitrogen 9 9-16 mg/dL Creatinine 0.94 0.5-1.4 mg/dL Estimated Glomerular Filt Rate > 60 Chronic Kidney Disease: Estimated GFR < 60 mL/min/1.73m2 Severe Kidney Disease: Estimated GFR < 15 mL/min/1.73m2 Glucose Fasting 159 60-99 mg/dL A fasting glucose of 126 mg/dl or greater on more than one occasion is considered diagnostic of diabetes. Calcium 9.7 8.4-10.2 mg/dL Bilirubin Total 0.4 0.0-1.0 mg/dL Aspartate Amino Transferase 39 5-37 U/L Alanine Aminotransferase 31 0-40 U/L Total Protein 7.2 6.5-8.0 g/dL Albumin Level 3.7 3.5-5.0 g/dL Alkaline Phosphatase 63 39-117 U/L Lipid Panel Reviewed date:01/19/2025 05:07:40 PM Interpretation: Performing Lab:[address] [phone] Notes/Report: Triglycerides 92 <150 mg/dL Desirable Triglyceride: less than 150 mg/dL Borderline High Triglyceride 150-199 mg/dL High Triglyceride: 200-499 mg/dL Very High Triglyceride: greater than or equal to 5OO mg/dL Cholesterol 144 <200 mg/dL Desirable Cholesterol: less than 200 mg/dL Borderline High Cholesterol: 200-239 mg/dL High Cholesterol: greater than 239 mg/dL LDL Cholesterol Calculated 51 <100 mg/dL Desirable LDL: less than 100 mg/dL Near Optimal/Above Optimal LDL: 110-129 mg/dL Borderline High LDL: 130-159 mg/dL High LDL: 160-189 mg/dL Very High LDL: greater than or equal to 190 mg/dL HDL Cholesterol 75 >40 mg/dL Desirable HDL: greater than 40 mg/dL Note: This HDL assay may give artificially low results in patients with liver disease. PSA,Total (Free>4and<10) Reviewed date:01/19/2025 06:41:34 PM Interpretation: Performing Lab:[address] [phone] Notes/Report: PSA,Total (Free>4and<10) 0.39 0.00-4.00 ng/mL A Free PSA was not performed: The percentage of Free PSA can be used to enhance the differentiation of prostate cancer from benign prostatic disease in subjects whose PSA levels are between 4.0 and 10.0 ng/mL. For subjects whose PSA levels are below 4.0 or above 10.0 ng/mL, the risk of prostate cancer is determined on the basis of the PSA alone. Therefore the % Free PSA is recommended only for those subjects whose PSA levels are between 4.0 and 10.0 ng/mL. PSA methodology: Huggins Alinity i Chemiluminescent Microparticle Immunoassay (CMIA) Microalbumin, Random Reviewed date:01/19/2025 06:44:39 PM Interpretation: Performing Lab:[address] [phone] Notes/Report: Creatinine Urine 155.47 Microalbumin Urine 68.0 Microalbum/Creatinine Ratio Ur 43.7 <30 ug/mg cr Albumin/Creatinine Ratio Reference Ranges: Normal: < 30 ug/mg creatinine Microalbuminuria: 30 - 300 ug/mg creatinine Clinical Albuminuria: > 300 ug/mg creatinine Hemoglobin A1c Reviewed date:01/19/2025 06:41:59 PM Interpretation: Performing Lab:[address] [phone] Notes/Report: Hemoglobin A1c % 8.4 <6.0 % Hemoglobin A1C Reference Range Adults: 4.8 - 6.0 % Non diabetic: < 6.0 % Goal: < 7.0 % Additional Action Suggested: > 8.0 % Note: Hemoglobin A1c results are invalid for patients with abnormal amounts of HbF. Blood transfusions may impact the HbA1c concentration in the patient sample. Estimated Average Glucose 194 eAG = Estimated average glucose which is %A1C expressed as average glucose, using the formula of the B0L-Wakildj Average Glucose study (ADAG), Diabetes Care, Vol.31,#8, Dec. 2007 UA ClnCatch+Micro w/rflx Cul t Reviewed date:01/19/2025 06:50:51 PM Interpretation: Performing Lab:[facility], [address] [place] [phone] Notes/Report: Urine, Clean Catch Color Urine Yellow Appearance Urine Clear PH 5.5 5.0-9.0 Glucose Urine UA 250 Negative mg/dL Urine Blood Negative Negative Specific [place] - Urine 1.025 1.005-1.025 Urine Protein 30 (1+) Neg-Trace mg/dL Urine Ketones Trace Negative mg/dL Nitrite Urine Negative Negative Leukocyte Esterase Urine Negative Negative RBC Urine 0-2 0-2 /HPF WBC Urine 0-5 0-5 /HPF Squamous Epithelial Cell Urine 0-2 0-2 /HPF Calcium Oxalate Crystals Urine Present Bacteria Urine None Seen None Seen Hyaline Casts Urine 0-2 0-2 /LPF REASON FOR VISIT yearly fasting labs Encounters Encounter Location Date Provider Diagnosis Mayo Mart MD [address] [facility] [address] [place], [place] [id number] 01/19/2025 Mayo Mart Blood tests for rout ine general physical examination Z00.00 ; Pure hypercholesterolemia E78.00 ; Labile hypertension I10 and Type 2 diabetes mellitus treated without insulin E11.9 Assessments Encounter Date Diagnosis (ICD Code) Assessment Notes Treatment Notes Treatment Clinical Notes Section Notes 01/19/2025 Blood tests for rout ine general physical examination (ICD-10 - Z00.00) 01/19/2025 Pure hypercholesterolemia (ICD-10 - E78.00) 01/19/2025 Labile hypertension (ICD-10 - I10) 01/19/2025 Type 2 diabetes armond itus treated without insulin (ICD-10 - E11.9) Plan Of Treatment Next Appt Details Provider Name:Mayo Cox ier, 05/21/2025 01:30:00 PM, [address], [address], [place], [phone], Provider Name:Mayo Cox ier, 08/10/2025 08:15:00 AM, [address], [address], [place], [phone], Provider Name:Mayo Cox ier, 08/17/2025 01:30:00 PM, [address], [address], [place], [place], [id number], Provider Name:Mayo Cox ier, 02/08/2026 08:00:00 AM, [address], [address] [facility], [place], [place], [phone], Provider Name:Mayo Cox ier, 02/15/2026 02:30:00 PM, [address], Suite [facility], [place], [place], [id number], Progress Notes * Boni ESPINOZA WDOB: 8 (69 yo M)Acc No.[id number]:01/19/2025 Progress Note Patient: Boni MORILLO Provider: Preet Mart MD :1955 A ge:69 Y S ex:Male Date:01/19/2025 Address:[address] [place] [address], [id number] Subjective: * Chief Complaints: * 1 . Yearly fasting labs. * Medical History: Objective: * Vitals: Assessment: * Assessment: 1. B lood tests for routine general physical examination - Z00.00 (Primary) 2 .?Pure hypercholesterolemia - E78.00 3 . L abile hypertension - I10 ? 4 . T ype 2 diabetes mellitus treated without insulin - E11.9 Plan: * Treatment: 2. P ure hypercholesterolemia L AB: Complete Blood Count Auto Diff (Collection Date & Time - 01/19/2025 10:00 AM) L AB: Comprehensive [place]. Panel Fast (Collection Date & Time - 01/19/2025 10:00 AM) L AB: Lipid Panel (Collection Date & Time - 01/19/2025 10:00 AM) L AB: PSA,Total (Free>4and<10) (Collection Date & Time - 01/19/2025 10:00 AM) L AB: Microalbumin, Random (Collection Date & Time - 01/19/2025 10:00 AM) L AB: Hemoglobin A1c (Collection Date & Time - 01/19/2025 10:00 AM) L AB: UA ClnCatch+Micro w/rflx Cult (Collection Date & Time - 01/19/2025 10:00 AM) 3. L abile hypertension L AB: Complete Blood Count Auto Diff (Collection Date & Time - 01/19/2025 10:00 AM) L AB: Comprehensive [place]. Panel Fast (Collection Date & Time - 01/19/2025 10:00 AM) L AB: Lipid Panel (Collection Date & Time - 01/19/2025 10:00 AM) L AB: PSA,Total (Free>4and<10) (Collection Date & Time - 01/19/2025 10:00 AM) L AB: Microalbumin, Random (Collection Date & Time - 01/19/2025 10:00 AM) L AB: Hemoglobin A1c (Collection Date & Time - 01/19/2025 10:00 AM) L AB: UA ClnCatch+Micro w/rflx Cult (Collection Date & Time - 01/19/2025 10:00 AM) 4. T ype 2 diabetes mellitus treated without insulin L AB: Complete Blood Count Auto Diff (Collection Date & Time - 01/19/2025 10:00 AM) L AB: Comprehensive [place]. Panel Fast (Collection Date & Time - 01/19/2025 10:00 AM) L AB: Lipid Panel (Collection Date & Time - 01/19/2025 10:00 AM) L AB: PSA,Total (Free>4and<10) (Collection Date & Time - 01/19/2025 10:00 AM) L AB: Microalbumin, Random (Collection Date & Time - 01/19/2025 10:00 AM) L AB: Hemoglobin A1c (Collection Date & Time - 01/19/2025 10:00 AM) L AB: UA ClnCatch+Micro w/rflx Cult (Collection Date & Time - 01/19/2025 10:00 AM) * Procedure Codes: 3 6415 VENIPUNCT, ROUTINE* * * The named appointment provid er may or may not be the originator of this progress note, and it is not deemed complete until electronically signed by the appointment provider. Sign off status: Pending * Provider: Preet Mart MD Date: 0 01/19/2025 Generated for Jovi quezada/Edenilson/Brianna on: 1 07/04/2024 12:45 AM EST
--- OUTSIDE RECORDS SUMMARY | 2025-02-12 08:45 | XMS_ITS ---
Author Organization Mayo Mart MD Address [address] [place] [phone] Care Team Providers Care Lithographic Press Feeder Name Role Phone Mayo Mart Primary Care Provider Allergies Allergen (clinical drug ingredient) Drug/Non Drug Allergy documented on EMR Reaction Allergy Type Onset Date Status varenicline Chantix anger Drug Allergy Activ e Results Component Value Reference Range Notes Occult Blood, Stool, Guaiac Reviewed date:02/12/2025 02:18:08 PM Interpretation:Negative Performing Lab: Notes/Report: Negative Occult Blood, Stool, Guaiac neg Glucose, finger stick Reviewed date:02/12/2025 01:50:03 PM Interpretation: Performing Lab: Notes/Report: Value 193 REASON FOR VISIT annual visit Medications Medication SIG (Take, Route, Frequency, Duration) Notes Start Date End Date Status Flecainide Acetate 100 MG 0.5 tablet Ora lly every 12 hrs for 30 day(s) Not-Taking Clobetasol Propionate 0.05 % 1 application Externally Twice a day for 30 days 09/22/2019 Active Albuterol Sulfate HFA 108 (90 Base) MCG/ACT INHALE 1 PUFF BY MOUTH EVERY 4 HOURS NEEDED for 33 Active dilTIAZem HCl 120 MG 2 tabs Orally once a day Active Metoprolol Tartrate 50 MG 1 tablet with food Orally Twice a day Active Escitalopram Oxalate 10 MG 1 tablet Orally Once a day for 30 day(s) 02/13/2025 Active Eliquis 5 MG 1 tablet Orally Twic e a day for 90 days Active Escitalopram Oxalate 10 MG 1 tablet Orally Once a day for 30 days 02/12/2025 Active metFORMIN HCl 500 MG TAKE 2 TABLETS BY M OUTH Orally twice a day for 90 days Active Atorvastatin Calcium 20 MG 1 tablet Orally Once a day for 30 day(s) Active Symbicort 160-4.5 MCG/ACT 1 puff as need ed Inhalation every 4 hrs for 30 days 01/20/2024 Active Immunizations Vaccine Route Administration Date Status Comme nts Influenza High Dose Unknown 02/12/2025 Refused Social History Tobacco Use: Social History Observation Description Date Details (start date - stop date) Current Smoker NA - NA AUDIT-C (Standard) Question Answer Notes Did you have a drink containing alcohol in the p ast year? No Points 0 Interpretation Negative Tobacco Control (Standard) Question Answer Notes Tobacco [...] Patient states stopped drinking 2 weeks ago 02-12-25 stopped drinking 1 month ago Problems Problem Type SNOMED Code ICD Code Onset Dates Problem Status W/U Status Risk Notes Problem Anxiety (97329857) Anxiety (F41.9) Active confirmed Vital Signs Blood pressure systolic 130 mm Hg 02/13/20 25 Blood pressure diastolic 72 mm Hg 025 Height 67.5 in 02/12/2025 Weight 178 lbs 02/12/2025 BMI 27.46 kg/m2 02/12/2025 weight is up 7 pounds since 11-13-24 Encounters Encounter Location Date Provider Diagnosis Mayo Mart MD [address] [place] [address] [address] [place], [place] [phone] 02/12/2025 Mayo Mart Annual physical exam Z00.00 ; Type 2 diabetes mellitus treated without insulin E11.9 ; Atrial fibrillation I48.91 ; Lung nodule seen on imaging study R91.1 ; Anxiety F41.9 ; Current smoker F17.200 ; Other emphysema J43.8 ; Colon cancer screening Z12.11 and Depression screening Z13.31 Assessments Encounter Date Diagnosis (ICD Code) Assessment Notes Treatment Notes Treatment Clinical Notes Section Notes 02/12/2025 Annual physical exam (ICD-10 - Z00.00) labs reviewed and discussed with patient z12.11 02/12/2025 Type 2 diabetes mellitus treated without insulin (ICD-10 - E11.9) not watching his diet. encouraged diet, will continue current regiment and will contnue to monitor z.02/12/2025 Atrial fibrillation (ICD-10 - I48.91) doing well, will continue current regiment z.02/12/2025 Lung nodule seen on imaging study (ICD-10 - R91.1) getting ct yearly z12.02/12/2025 Anxiety (ICD-10 - F41.9) z12.02/12/2025 Current smoker (ICD-10 - F17.200) try to get him to quit z.02/12/2025 Other emphysema (ICD-10 - J43.8) z.02/12/2025 Colon cancer screening (ICD-10 - Z12.11) guaiac negative z.02/12/2025 Depression screening (ICD-10 - Z13.31) negative screen z12. Plan Of Treatment Medication Medication Name Sig Start Date Stop Date Notes Escitalopram Oxalate 10 MG 1 tablet Oral ly Once a day for 30 day(s) 02/13/2025 Eliquis 5 MG 1 tablet Orally Twic e a day for 90 days Escitalopram Oxalate 10 MG 1 tablet Oral ly Once a day for 30 days 02/12/2025 metFORMIN HCl 500 MG TAKE 2 TABLETS BY M OUTH Orally twice a day for 90 days Symbicort 160-4.5 MCG/ACT 1 puff as need ed Inhalation every 4 hrs for 30 days 01/20/2024 Treatment Notes Assessment Notes Annual physical exam labs reviewed and d iscussed with patient Type 2 diabetes mellitus herman ated without insulin not watching his diet. encouraged diet, will continue current regiment and will contnue to monitor Atrial fibrillation doing well, will con tinue current regiment Lung nodule seen on imaging study gettin g ct yearly Current smoker try to get him to qu it Colon cancer screening guaiac negative Depression screening negative screen Next Appt Details Follow Up: 3 Months, Reason: Provider Name:Mayo parson, 05/21/2025 01:30:00 PM, [address] [facility], [address], [place], [place], [phone], Provider Name:Mayo parson, 08/10/2025 08:15:00 AM, [address] [facility], [address], [place], [place], [phone], Provider Name:Mayo Cox ier, 08/17/2025 01:30:00 PM, [address] [facility], [address], [place], [place], [phone], Provider Name:Mayo Cox ier, 02/08/2026 08:00:00 AM, [address] [facility], Suite [facility], [place], [place], [phone], Provider Name:Mayo Cox ier, 02/15/2026 02:30:00 PM, [address] [place] [address], Suite [facility], [place], [place], [phone], Progress Notes * Boni ESPINOZA WDOB: 8 (69 yo M)Acc No.[id number]:02/12/2025 Progress Notes Patient: Yumi RODRIGUEZKYARABoni Provider: Preet Mart MD :1955 A ge:69 Y S ex:Male Date:02/12/2025 Address:[address] [place] [address] [place], [id number] Subjective: * Chief Complaints: * A nnual visit * HPI: D epression Screening: PHQ-9 L ittle interest or pleasure in doing things S everal days, F eeling down, depressed, or hopeless S everal days, T rouble falling or staying asleep, or sleeping too much S everal days, F eeling tired or having little energy S everal days, P oor appetite or overeating S everal days, F eeling bad about yourself or that you are a failure, or have let yourself or your family down N ot at all, T rouble concentrating on things, such as reading the newspaper or watching television N ot at all, M oving or speaking so slowly that other people could have noticed; or the opposite, being so fidgety or restless that you have been moving around a lot more than usual N ot at all, T houghts that you would be better off or of hurting yourself in some way N ot at all, T otal Score 5 , I nterpretation M ild Depression. I nterpretation and Intervention D epression Screening Findings N egative, F ollow-Up for Depression : review of PHQ-9 found negative result, no follow-up needed. C ommunication Needs: Communication Needs D oes the patient have a hearing impairment N o, D oes the patient have a vision impairment? Y es, I f yes, what is the vision impairment? G lasses, D oes the patient have a cognition impairment? N o. S ARVIND Questions: SDOH Questions I n the past year have you been worried about losing housing? N o, I n the past year have you or any family members you live with been unable to get any of the following when it was really needed? Check all that apply: N one. F all Risk: History H ave you had any falls with injury in the past year? N o, H ave you had two or more falls in the past year? N o. S ymptom(s): patient is a 69 yo male here for anuual viait with review of recent labs and follow up chrnic issues h ere for follow up. still smoking and coughing. * ROS: G eneral/Constitutional: Change in appetite d enies. C hills d enies. F ever d enies. O phthalmologic: Blurred vision d enies. D ischarge d enies. P ain d enies. E NT: Decreased hearing d enies. S ore throat d enies.?Swollen glands d enies. E ndocrine: Cold intolerance d enies. E xcessive thirst d enies. H eat intolerance d enies. W eight loss d enies. R espiratory: Cough d enies. S hortness of breath at rest d enies. S hortness of breath with exertion d enies. W heezing d enies. C ardiovascular: Chest pain at rest d enies. C hest pain with exertion?denies. I rregular heartbeat d enies. S hortness of breath d enies. ? G astrointestinal: Abdominal pain d enies. C hange in bowel habits d enies. D iarrhea d enies. N ausea d enies. R ectal bleeding d enies. V omiting d enies . G enitourinary: Blood in urine d enies. D ifficulty urinating d enies. F requent urination d enies. M usculoskeletal: Painful joints d enies. W eakness d enies. ? S kin: Dry skin d enies. I tching d enies. D enies?Mole(s), changes in moles, new moles or any lesions of concern. D enies P hotosensitivity. R mili d enies. N eurologic: Dizziness d enies. F ainting d enies. H eadache?denies. * Medical History: * Surgical History: * Hospitalization/Major Diagno stic Procedure: * Family History: F ather: 67 yrs. M other: 93 yrs, diagnosed with Diabetes. 1 brother(s) . 1 son(s) , 2 daughter(s) . . Father-[place] 1 sister 58 Lung Cancer, No pertinent family medical history. * Social History: T obacco Use: T [...] interested in quitting? T hinking about quitting. M iscellaneous: C affeine: yes, frequency:, 1-2 cups per day. Children: yes. Community involvements: yes. Exercise: no. Home smoke detector use: yes. Housing: owning. Living with: significant other. Marital status: single, . Occupation: retired. Pets: cats: dogs:1 cat. D rug/Alcohol: A BRYSON-C (Standard) D id you have a drink containing alcohol in the past year? N o, P oints 0 , I nterpretation N egative. s topped drinking a few weeks ago 07-04-24 Patient states stopped drinking? 2 weeks ago 02-12-25 stopped drinking 1 month ago. * Medications: T akingAtorvastatin Calcium 20 MG Tablet 1 tablet Orally Once a day Clobetasol Propionate 0.05 % Cream 1 application Externally Twice a day Symbicort 160-4.5 MCG/ACT Aerosol 1 puff as needed Inhalation every 4 hrs dilTIAZem HCl 120 MG Tablet 2 tabs Orally once a day Metoprolol Tartrate 50 MG Tablet 1 tablet with food Orally Twice a day Albuterol Sulfate HFA 108 (90 Base) MCG/ACT Aerosol Solution INHALE 1 PUFF BY MOUTH EVERY 4 HOURS NEEDED Eliquis 5 MG Tablet 1 tablet Orally Twice a day metFORMIN HCl 500 MG Tablet TAKE 2 TABLETS BY MOUTH TWICE DAILY Taking Atorvastatin Calcium 20 MG Tablet 1 tablet Orally Once a day Taking Clobetasol Propionate 0.05 % Cream 1 application Externally Twice a day Taking Symbicort 160-4.5 MCG/ACT Aerosol 1 puff as needed Inhalation every 4 hrs Taking dilTIAZem HCl 120 MG Tablet 2 tabs Orally once a day Taking Metoprolol Tartrate 50 MG Tablet 1 tablet with food Orally Twice a day Taking Albuterol Sulfate HFA 108 (90 Base) MCG/ACT Aerosol Solution INHALE 1 PUFF BY MOUTH EVERY 4 HOURS NEEDED Taking Eliquis 5 MG Tablet 1 tablet Orally Twice a day Taking metFORMIN HCl 500 MG Tablet TAKE 2 TABLETS BY MOUTH TWICE DAILY Not-Taking/PRNFlecainide Acetate 100 MG Tablet 0.5 tablet Orally every 12 hrs Medication List reviewed and reconciled with the patientNot-Taking/PRN Flecainide Acetate 100 MG Tablet 0.5 tablet Orally every 12 hrs Medication List reviewed and reconciled with the patient * Allergies: C leif: val[Allergies Verified] Objective: * Vitals: H t: 67.5, Wt: 178, BMI:27.46, BP:130/72, Wt-k.74. weight is up 7 pounds since 11-13-24. * P ast Orders: L ab:Lipid Panel (Order Date - 01/19/2025) (Collection Date & Time - 01/19/2025 10:00 AM) Value Reference Range Triglycerides 92 <150 - mg/dL Cholesterol 144 <200 - mg/dL LDL Cholesterol Calculated 51 <100 - mg/dL HDL Cholesterol 75 >40 - mg/dL L ab:PSA,Total (Free>4and<10) (Order Date - 01/19/2025) (Collection Date & Time - 01/19/2025 10:00 AM) Value Reference Range PSA,Total (Free>4and<10) 0.39 0.00-4.00 - ng/ mL L ab:Microalbumin, Random (Order Date - 01/19/2025) (Collection Date & Time - 01/19/2025 10:00 AM) Value Reference Range Creatinine Urine 155.47 - mg/dL Microalbumin Urine 68.0 - mg/L Microalbum Creatinine Ratio Ur 43.7 H <30 - ug/ mg cr L ab:Hemoglobin A1c (Order Date - 01/19/2025) (Collection Date & Time - 01/19/2025 10:00 AM) Value Reference Range Hemoglobin A1c % 8.4 H <6.0 - % Estimated Average Glucose 194 - mg/dL L ab:Complete Blood Count Auto Diff (Order Date - 01/19/2025) (Collection Date & Time - 01/19/2025 10:00 AM) Value Reference Range White Blood Count 7.2 4.8-10.8 - X10*3/uL Red Blood Count 5.00 4.60-5.80 - X10*6/uL Hemoglobin 15.5 14.0-18.0 - g/dl Hematocrit 47.4 42.0-52.0 - % Mean Corpuscular Volume 94.8 80.0-98.0 - fL Mean Corpuscular Hemoglobin 31.0 27.0-33.0 - pg Mean Corpuscular HGB Conc 32.7 31.0-36.0 - g/ dl Red Cell Distribution Width 15.3 11.0-16.0 - % Platelet Count 241 160-400 - X10*3/uL Mean Platelet Volume 10.2 9.4-12.4 - fL Neutrophils Percent Auto 64.5 45-73 - % Imm Gran Pct Auto 0.6 H 0.0-0.4 - % Lymphocytes Percent Auto 20.9 20-40 - % Monocytes Percent Auto 10.2 2-11 - % Eosinophils Percent Auto 2.6 0-4 - % Basophils Percent Auto 1.2 0-2 - % NRBC Pct Auto 0.0 0.0-0.2 - /100WBC Neutrophils Absolute Auto 4.7 2.0-8.3 - x10* 3/uL Imm Gran Abs Auto 0.04 H 0.00-0.03 - X10*3/uL Lymphocytes Absolute Auto 1.5 1.2-4.9 - X10* 3/uL Monocytes Absolute Auto 0.7 0.1-1.2 - X10*3/ uL Eosinophils Absolute Auto 0.2 0.0-0.4 - X10* 3/uL Basophils Absolute Auto 0.1 0.0-0.2 - X10*3/ uL NRBC Abs Auto 0.000 0.0-0.012 - X10*3/uL L ab:UA ClnCatch+Micro w/rflx Cult (Order Date - 01/19/2025) (Collection Date & Time - 01/19/2025 10:00 AM) Value Reference Range Color Urine Yellow - Appearance Urine Clear - PH 5.5 5.0-9.0 - Glucose Urine UA 250 A Negative - mg/dL Urine Blood Negative Negative - Specific [place] Burn - Urine 1.025 1.005-1.025 - Urine Protein 30 (1+) A Neg-Trace - mg/dL Urine Ketones Trace Negative - mg/dL Nitrite Urine Negative Negative - Leukocyte Esterase Urine Negative Negative - RBC Urine 0-2 0-2 - /HPF WBC Urine 0-5 0-5 - /HPF Squamous Epithelial Cell Urine 0-2 0-2 - /HP F Bacteria Urine None Seen None Seen - Hyaline Casts Urine 0-2 0-2 - /LPF Calcium Oxalate Crystals Urine Present - L ab:Comprehensive [place]. Panel Fast (Order Date - 01/19/2025) (Collection Date & Time - 01/19/2025 10:00 AM) Value Reference Range Sodium 141 135-145 - mmol/L Bilirubin Total 0.4 0.0-1.0 - mg/dL Aspartate Amino Transferase 39 H 5-37 - U/L Alanine Aminotransferase 31 0-40 - U/L Total Protein 7.2 6.5-8.0 - g/dL Albumin Level 3.7 3.5-5.0 - g/dL Alkaline Phosphatase 63 39-117 - U/L Potassium 4.6 3.3-5.1 - mmol/L Chloride 105 96-108 - mmol/L Carbon Dioxide 28 22-29 - mmol/L Anion Gap 13 12-20 - Blood Urea Nitrogen 9 9-16 - mg/dL Creatinine 0.94 0.5-1.4 - mg/dL Estimated Glomerular Filt Rate > 60 - Glucose Fasting 159 H 60-99 - mg/dL Calcium 9.7 8.4-10.2 - mg/dL * Examination: G eneral Examination: GENERAL APPEARANCE: w ell developed, well nourished, in no acute distress. HEAD: n ormocephalic, atraumatic. EYES: p upils equal, round, reactive to light and accommodation, sclera non-icteric. EARS: n ormal. ORAL CAVITY: m ucosa moist. THROAT: c lear. NECK/THYROID: n biju supple, full range of motion, no cervical lymphadenopathy, no bruits. SKIN: w arm and dry, no suspicious lesions. HEART: r egular rate and rhythm, S1, S2 normal, no murmurs.? LUNGS: a bnormal with diffuse wheezes and rhonchi. ABDOMEN: s oft, nontender, nondistended, bowel sounds present, normal, no organomegaly , no masses palpable. RECTAL EXAM: n ormal tone, no external hemorrhoids, no masses palpable, prostate normal, stool guaiac negative. MALE GENITOURINARY: c ircumcised, testes descended bilaterally, no testicular mass. EXTREMITIES: n o clubbing, cyanosis, or edema. NEUROLOGIC: n onfocal, motor strength normal upper and lower extremities, sensory exam intact. Assessment: * Assessment: 1. A nnual physical exam - Z00.00 (Primary) 2 . T ype 2 diabetes mellitus treated without insulin - E11.9 3 . A trial fibrillation - I48.91 ?4. L evan nodule seen on imaging study - R91.1 5 . A nxiety - F41.9 & #160; 6 . C urrent smoker - F17.200 7 . O ther emphysema - J43.8 ? 8 . C olon cancer screening - Z12.11 9 . D epression screening - Z13.31 z12.11 Plan: * Treatment: 2. T ype 2 diabetes mellitus treated without insulin Continue metFORMIN HCl Tablet, 500 MG, TAKE 2 TABLETS BY MOUTH, Orally, twice a day, 90 days, 360, Refills 5. L AB: Glucose, finger stick (Collection Date & Time - 02/12/2025) Value Reference Range V alue 193 Notes: not watching his diet. encouraged diet, will continue current regiment and will contnue to monitor??3.?Atrial fibrillation? Continue Eliquis Tablet, 5 MG, 1 tablet, Orally, Twice a day, 90 days, 180 Tablet, Refills 3.? Notes: doing well, will continue current regiment??4.?Lung nodule seen on imaging study? Notes: getting ct yearly??5.?Anxiety? Start Escitalopram Oxalate Tablet, 10 MG, 1 tablet, Orally, Once a day, 30 days, 30, Refills 5; Start Escitalopram Oxalate Tablet, 10 MG, 1 tablet, Orally, Once a day, 30 day(s), 30.??6.?Current smoker? Notes: try to get him to quit??7.?Other emphysema? Continue Symbicort Aerosol, 160-4.5 MCG/ACT, 1 puff as needed, Inhalation, every 4 hrs, 30 days, 1,Refills 11.??8.?Colon cancer screening?LAB: Occult Blood, Stool, Guaiac (Collection Date & Time - 02/12/2025)? Negative* Value Reference Range O ccult Blood, Stool, Guaiac neg Notes: guaiac negative??9.?Depression screening? Notes: negative screen?? * Immunizations: Influenza High Dose (Not administered - Refused: Patient decision) * Procedure Codes: 8 2947 ASSAY, GLUCOSE, BLOOD QUANT, Modifiers: QW 47854 TEST FOR BLOOD, FECES * Preventive Medicine: Counseling: S moking P atient counseled on the dangers of tobacco use and urged to quit. 0 02/12/2025, P atient Lifestyle Goals P atient does not want to quit, T reatment Goals S uggested he, Cut down by 1 cigarette a week, B arriers N ot ready to quit. Diabetes Care Plan: P atient Lifestyle Goals N eeds to maintain diet control.?Treatment Goals A 1C< 7. B arriers N eeds better diet control. E xpected Outcome m aintaining stable blood sugar levels within a target range. Immunizations: I nfluenza H ave you had a flu shot since the most recent January 22? N o patient refused at visit today. * Follow Up: 3 Months * * Sign off status: Completed true * Provider: Preet Mart MD Date: 0 02/12/2025 Generated for Jovi quezada/Edenilson/Ernieransmitting on: 1 07/04/2024 12:43 AM EST History and Physical Notes * HPI (History of Present Illness) Category Sub-Category Detail Notes Category Not es Symptom(s) patient is a 69 yo male here for anuual viait with review of recent labs and follow up chrnic issues here for follow up. still smoking and coughing Depression Screening PHQ-9 Little inte rest or pleasure in doing things: Several days Feeling down, depressed, or hopeless: Se veral days Trouble falling or staying asleep, or sl eeping too much: Several days Feeling tired or having little energy: S everal days Poor appetite or overeating: Several day s Feeling bad about yourself o r that you are a failure, or have let yourself or your family down: Not at all Trouble concentrating on thi ngs, such as reading the newspaper or watching television: Not at all Moving or speaking so slowly that other people could have noticed; or the opposite, being so fidgety or restless that you have been moving around a lot more than usual: Not at all Thoughts that you would be b chauncey off or of hurting yourself in some way: Not at all Total Score: 5 Interpretation: Mild Depression Interpretation and Intervention Depression Santos moody Findings: Negative Follow-Up for Depression: : review of PH Q-9 found negative result, no follow-up needed SDOH Questions SDOH Questions In the past year have you been worried about losing housing?: No In the past year have you or any family members you live with been unable to get any of the following when it was really needed? Check all that apply:: None Fall Risk History Have you had any falls with injury i n the past year?: No Have you had two or more falls in the year?: No Communication Needs Communication Needs Does the patient have a hearing impairment: No Does the patient have a vision impairmen t?: Yes If yes, what is the vision impairment?: Glasses Does the patient have a cognition impair ment?: No Examination Category Sub-Category Detail Notes Category Not es General Examination GENERAL APPEARANCE: well dev eloped, well nourished, in no acute distress HEAD: normocephalic, atrau matic EYES: pupils equal, round, reactive to light and accommodation, sclera non-icteric EARS: normal THROAT: clear NECK/THYROID: neck supple, full ra nge of motion, no cervical lymphadenopathy, no bruits HEART: regular rate and rhy thm, S1, S2 normal, no murmurs LUNGS: abnormal with diffus e wheezes and rhonchi ABDOMEN: soft, nontender, non distended, bowel sounds present, normal, no organomegaly , no masses palpable NEUROLOGIC: nonfocal, motor stre ngth normal upper and lower extremities, sensory exam intact SKIN: warm and dry, no scott picious lesions EXTREMITIES: no clubbing, cyanosi s, or edema MALE GENITOURINARY: circumcised, testes descended bilaterally, no testicular mass RECTAL EXAM: normal tone, no exte rnal hemorrhoids, no masses palpable, prostate normal, stool guaiac negative ORAL CAVITY: mucosa moist
--- OUTSIDE RECORDS SUMMARY | 2025-02-13 10:28 | XMS_ITS ---
Author Organization Mayo Mart MD Address [address] [facility] [address] [place] [phone] Care Team Providers Care Hired Help Name Role Phone Mayo Mart Primary Care Provider [phone] REASON FOR VISIT Escitalopram Encounters Encounter Location Date Provider Diagnosis Mayo Mart MD [address] [facility] [address] [place] [phone] 02/13/2025 Mayo Mart Plan Of Treatment Next Appt Details Provider Name:Mayo parson, 05/21/2025 01:30:00 PM, [address] [place] [address], [address] [place] [address], [phone], Provider Name:Mayo parson, 08/10/2025 08:15:00 AM, [address] [place] [address], [address], [phone], Provider Name:Mayo parson, 08/17/2025 01:30:00 PM, [address] [place] [address], [address], [phone], Provider Name:Mayo Cox ier, 02/08/2026 08:00:00 AM, [address] [place] [address], [address], [phone], Provider Name:Mayo parson, 02/15/2026 02:30:00 PM, [address] [place] [address], [address], [phone], Progress Notes * Boni ESPINOZA WDOB: 8 (69 yo M)Acc No.[id number]:02/13/2025 Patient: Boni MORILLO :1955 A ge:69 Y S ex:Male Address:[address] [place] [phone] * true * Date: Generated for Jovi quezada/Edenilson/Teodorosmitting on: 07/04/2024 12:46 AM EST
--- OUTSIDE RECORDS SUMMARY | 2025-02-16 09:11 | XMS_ITS ---
Author Organization Mayo Mart MD Address [address] [facility] [address] [place] [phone] Care Team Providers Care Special Procedure Technologist Name Role Phone Mayo Mart Primary Care Provider REASON FOR VISIT ESCITALOPRAM RX Medications Medication SIG (Take, Route, Frequency, Duration) Notes Start Date End Date Status Escitalopram Oxalate 10 MG 1 tablet Oral ly Once a day for 30 days 02/12/2025 Active Encounters Encounter Location Date Provider Diagnosis Mayo Mart MD [address] [place] [address] [place] [phone] 02/16/2025 Mayo Mart Anxiety F41.9 Assessments Encounter Date Diagnosis (ICD Code) Assessment Notes Treatment Notes Treatment Clinical Notes Section Notes 02/16/2025 Anxiety (ICD-10 - F41.9) Plan Of Treatment Medication Medication Name Sig Start Date Stop Date Notes Escitalopram Oxalate 10 MG 1 tablet Oral ly Once a day for 30 days 02/12/2025 Next Appt Details Provider Name:Mayo parson, 05/21/2025 01:30:00 PM, [address] [place] [address], [phone], Provider Name:Mayo parson, 08/10/2025 08:15:00 AM, [address] [place] [address], [phone], Provider Name:Mayo parson, 08/17/2025 01:30:00 PM, [address] [place] [address], [phone], Provider Name:Mayo pasron, 02/08/2026 08:00:00 AM, [address], [address], [place], [place], [phone], Provider Name:Mayo Cox ier, 02/15/2026 02:30:00 PM, [address], [address], [place], [place], [phone], Progress Notes * Boni ESPINOZA WDOB: 8 (69 yo M)Acc No.[id number]:02/16/2025 Patient: Yumi Boni SY :1955 A ge:69 Y S ex:Male Address:[address] [place] [address] [place] [address] * Refills Continue Escitalopram Oxalate Tablet, 10 MG, Orally, 30 Tablet, 1 tablet, Once a day, 30 days, Refills=3 * true * Date: Generated for Jovi quezada/Edenilson/Teodorosmitting on: 1 07/04/2024 12:44 AM EST
--- OUTSIDE RECORDS SUMMARY | 2025-03-08 06:45 | XMS_ITS ---
Author Organization Mayo Mart MD Address [address] [place] [phone] Care Team Providers Care Bulk Fluids Handler Name Role Phone Mayo Mart Primary Care Provider Allergies Allergen (clinical drug ingredient) Drug/Non Drug Allergy documented on EMR Reaction Allergy Type Onset Date Status varenicline Chantix anger Drug Allergy Activ e Results Component Value Reference Range Notes Glucose, finger stick Reviewed date:03/08/2025 11:46:18 AM Interpretation: Performing Lab: Notes/Report: Value 225 REASON FOR VISIT DIVERTICULITIS Medications Medication SIG (Take, Route, Frequency, Duration) Notes Start Date End Date Status Flecainide Acetate 100 MG 0.5 tablet Ora lly every 12 hrs for 30 day(s) Not-Taking metFORMIN HCl 500 MG TAKE 2 TABLETS BY M OUTH Orally twice a day for 90 days Active Eliquis 5 MG 1 tablet Orally Twic e a day for 90 days Active Clobetasol Propionate 0.05 % 1 application Externally Twice a day for 30 days 09/22/2019 Active dilTIAZem HCl 120 MG 2 tabs Orally once a day Active Metoprolol Tartrate 50 MG 1 tablet with food Orally Twice a day Active Albuterol Sulfate HFA 108 (90 Base) MCG/ACT INHALE 1 PUFF BY MOUTH EVERY 4 HOURS NEEDED for 33 Active Symbicort 160-4.5 MCG/ACT 1 puff as need ed Inhalation every 4 hrs for 30 days 01/20/2024 Active Atorvastatin Calcium 20 MG 1 tablet Orally Once a day for 30 day(s) Active Amoxicillin-Pot Clavulanate 875-125 MG 1 tablet Orally every 12 hrs for 10 days 03/08/2025 Active Vital Signs Blood pressure systolic 130 mm Hg 03/08/20 25 Blood pressure diastolic 78 mm Hg 025 Height 67.5 in 03/08/2025 Weight 175 lbs 03/08/2025 BMI 27 kg/m2 03/08/2025 weight is down 3 pounds julee arnold 02-12-25 Encounters Encounter Location Date Provider Diagnosis Mayo Mart MD [address] [place] [phone] 03/08/2025 Mayo Mart Type 2 diabetes mellitus treated without insulin E11.9 and Diverticulitis K57.92 Assessments Encounter Date Diagnosis (ICD Code) Assessment Notes Treatment Notes Treatment Clinical Notes Section Notes 03/08/2025 Type 2 diabetes mellitus treated without insulin (ICD-10 - E11.9) 03/08/2025 Diverticulitis (ICD-10 - K57.92) patient verbaized understanding of medication and directions for use Plan Of Treatment Medication Medication Name Sig Start Date Stop Date Notes Amoxicillin-Pot Clavulanate 875-125 MG 1 tablet Orally every 12 hrs for 10 days 03/08/2025 Treatment Notes Assessment Notes Diverticulitis patient verbaized un derstanding of medication and directions for use Next Appt Details Follow Up: 1 Week, Reason: Provider Name:Mayo parson, 05/21/2025 01:30:00 PM, [address] [place] [address], [phone], Provider Name:Mayo parson, 08/10/2025 08:15:00 AM, [address] [place] [address], [phone], Provider Name:Mayo parson, 08/17/2025 01:30:00 PM, [address] [place] [address], [phone], Provider Name:Mayo parson, 02/08/2026 08:00:00 AM, [address] [place] [address], [phone], Provider Name:Mayo parson, 02/15/2026 02:30:00 PM, [address] [place] [address], [phone], Progress Notes * Boni ESPINOZA WDOB: 8 (69 yo M)Acc No.[id number]:03/08/2025 Progress Notes Patient: Boni MORILLO Provider: Preet Mart MD :1955 A ge:69 Y S ex:Male Date:03/08/2025 Address:[address] [place] [address], [id number] Subjective: * Chief Complaints: * D IVERTICULITIS * HPI: S ymptom(s): 2 days of abdominal pain/ having some constipation. * ROS: G eneral/Constitutional: Denies C hills. D enies F atigue. D enies F ever. D enies H eadache. E NT: Denies S ore throat. R espiratory: Denies C ough. D enies S hortness of breath at rest. D enies S hortness of breath with exertion. G astrointestinal: Admits A bdominal pain. D enies D iarrhea. D enies N ausea. * Medical History: * Surgical History: * Hospitalization/Major Diagno stic Procedure: * Medications: T akingAtorvastatin Calcium 20 MG Tablet 1 tablet Orally Once a day Clobetasol Propionate 0.05 % Cream 1 application Externally Twice a day dilTIAZem HCl 120 MG Tablet 2 tabs Orally once a day Metoprolol Tartrate 50 MG Tablet 1 tablet with food Orally Twice a day Albuterol Sulfate HFA 108 (90 Base) MCG/ACT Aerosol Solution INHALE 1 PUFF BY MOUTH EVERY 4 HOURS NEEDED Symbicort 160-4.5 MCG/ACT Aerosol 1 puff as needed Inhalation every 4 hrs Eliquis 5 MG Tablet 1 tablet Orally Twice a day metFORMIN HCl 500 MG Tablet TAKE 2 TABLETS BY MOUTH Orally twice a day Taking Atorvastatin Calcium 20 MG Tablet 1 tablet Orally Once a day Taking Clobetasol Propionate 0.05 % Cream 1 application Externally Twice a day Taking dilTIAZem HCl 120 MG Tablet 2 tabs Orally once a day Taking Metoprolol Tartrate 50 MG Tablet 1 tablet with food Orally Twice a day Taking Albuterol Sulfate HFA 108 (90 Base) MCG/ACT Aerosol Solution INHALE 1 PUFF BY MOUTH EVERY 4 HOURS NEEDED Taking Symbicort 160-4.5 MCG/ACT Aerosol 1 puff as needed Inhalation every 4 hrs Taking Eliquis 5 MG Tablet 1 tablet Orally Twice a day Taking metFORMIN HCl 500 MG Tablet TAKE 2 TABLETS BY MOUTH Orally twice a day Not-Taking/PRNFlecainide Acetate 100 MG Tablet 0.5 tablet Orally every 12 hrs Not-Taking/PRN Flecainide Acetate 100 MG Tablet 0.5 tablet Orally every 12 hrs DiscontinuedEscitalopram Oxalate 10 MG Tablet 1 tablet Orally Once a day Escitalopram Oxalate 10 MG Tablet 1 tablet Orally Once a day Medication List reviewed and reconciled with the patientDiscontinued Escitalopram Oxalate 10 MG Tablet 1 tablet Orally Once a day Discontinued Escitalopram Oxalate 10 MG Tablet 1 tablet Orally Once a day Medication List reviewed and reconciled with the patient * Allergies: C irvingx: val[Allergies Verified] Objective: * Vitals: H t: 67.5, Wt: 175, BMI:27, BP:130/78, Wt-k.38. weight is down 3 pounds since 02-12-25. * Examination: G eneral Examination: GENERAL APPEARANCE: a lert, well hydrated, in no distress.? SKIN: g ood turgor. HEART: r egular rate and rhythm, no murmurs, rubs, gallops.? LUNGS: w ith few wheezes. ABDOMEN: a bnormal with tenderness in lower quadrants. Assessment: * Assessment: 1. T ype 2 diabetes mellitus treated without insulin - E11.9 (Primary) 2 . D iverticulitis - K57.92 Plan: * Treatment: Value Reference Range V alue 225 2.?Diverticulitis? Start Amoxicillin-Pot Clavulanate Tablet, 875-125 MG, 1 tablet, Orally, every 12 hrs, 10 days, 20 Tablet, Refills 1.?? Notes: patient verbaized understanding of medication and directions for use?? * Procedure Codes: 8 2947 ASSAY, GLUCOSE, BLOOD QUANT, Modifiers: QW * Follow Up: 1 Week * * Sign off status: Completed true * Provider: Preet Mart MD Date: Generated for Jovi quezada/Edenilson/eTteasmitting on: 1 07/04/2024 12:43 AM EST History and Physical Notes * Examination Category Sub-Category Detail Notes Category Not es General Examination GENERAL APPEARANCE: alert, w ell hydrated, in no distress HEART: regular rate and rhy thm, no murmurs, rubs, gallops LUNGS: with few wheezes ABDOMEN: abnormal with tender ness in lower quadrants SKIN: good turgor
--- OUTSIDE RECORDS SUMMARY | 2025-03-15 06:30 | XMS_ITS ---
Author Organization Mayo Mart MD Address [address] [place] [phone] Care Team Providers Care Gas Distribution And Emergency Clerk Name Role Phone aMyo Mart Primary Care Provider [phone] Allergies Allergen (clinical drug ingredient) Drug/Non Drug Allergy documented on EMR Reaction Allergy Type Onset Date Status varenicline Chantix anger Drug Allergy Activ e Reason For Referral Reason Diverticulitis nee ds colonoscopy Diagnosis 1 Diverticulitis (K57. 92) Referral Organization Mayo Mart MD Referring Provider First Name Mayo Referring Provider Last Name Brtitny Referring Provider Speciality Internal M edicine Referred Provider Delano Andino Referred Provider Specialty Gastroentero logy General Notes Taryn Bolivar 1 11:43:32 AM >referral info faxedKatt Annette 03/30/2025 01:18:35 PM >patient is aware of appt Referral Priority Routine Referral Appointment Date 08/16/2025 REASON FOR VISIT 1 week f/u Medications Medication SIG (Take, Route, Frequency, Duration) Notes Start Date End Date Status Flecainide Acetate 100 MG 0.5 tablet Ora lly every 12 hrs for 30 day(s) Not-Taking Amoxicillin-Pot Clavulanate 875-125 MG 1 tablet Orally every 12 hrs for 10 days 03/08/2025 Not-Taking Clobetasol Propionate 0.05 % 1 application Externally Twice a day for 30 days 09/22/2019 Active Atorvastatin Calcium 20 MG 1 tablet Orally Once a day for 30 day(s) Active traZODone HCl 50 MG 1 tablet at bedtime as needed Orally Once a day for 30 days 03/15/2025 Active metFORMIN HCl 500 MG TAKE 2 TABLETS BY M OUTH Orally twice a day for 90 days Active Eliquis 5 MG 1 tablet Orally Twic e a day for 90 days Active Symbicort 160-4.5 MCG/ACT 1 puff as need ed Inhalation every 4 hrs for 30 days 01/20/2024 Active Albuterol Sulfate HFA 108 (90 Base) MCG/ACT INHALE 1 PUFF BY MOUTH EVERY 4 HOURS NEEDED for 33 Active Metoprolol Tartrate 50 MG 1 tablet with food Orally Twice a day Active dilTIAZem HCl 120 MG 2 tabs Orally once a day Active Problems Problem Type SNOMED Code ICD Code Onset Dates Problem Status W/U Status Risk Notes Problem Insomnia (089023259) Insomnia (G47.00) Active confirmed Vital Signs Blood pressure systolic 132 mm Hg 03/15/20 25 Blood pressure diastolic 70 mm Hg 025 Height 67.5 in 03/15/2025 Weight 177 lbs 03/15/2025 BMI 27.31 kg/m2 03/15/2025 Encounters Encounter Location Date Provider Diagnosis Mayo Mart MD [address] [place] [address] Drive [address] [place], [place] [phone] 03/15/2025 Mayo Mart Diverticulitis K57.9 2 and Insomnia G47.00 Assessments Encounter Date Diagnosis (ICD Code) Assessment Notes Treatment Notes Treatment Clinical Notes Section Notes 03/15/2025 Diverticulitis (ICD-10 - K57.92) resolved with no antibiotics/ needs referral to dr andino for colonoscopy 03/15/2025 Insomnia (ICD-10 - G47.00) patient verbalized undersanding of medicatin and directions for use Plan Of Treatment Medication Medication Name Sig Start Date Stop Date Notes traZODone HCl 50 MG 1 tablet at bedtime as needed Orally Once a day for 30 days 03/15/2025 Treatment Notes Assessment Notes Diverticulitis resolved with no ant ibiotics/ needs referral to dr andino for colonoscopy Insomnia patient verbalized u ndersanding of medicatin and directions for use Referrals Referral Date Details 03/15/2025 03/15/2025, Divertic ulitis needs colonoscopy, Delano Andino Next Appt Details Follow Up: 3 Months, Reason: Provider Name:Mayo parson, 05/21/2025 01:30:00 PM, [address] [place] [address], [address], [place], [place], [phone], Provider Name:Mayo Cox ier, 08/10/2025 08:15:00 AM, [address], [address], [place], [phone], Provider Name:Mayo Cox ier, 08/17/2025 01:30:00 PM, [address], [address], [place], [phone], Provider Name:Mayo Cox ier, 02/08/2026 08:00:00 AM, [address], [address], [place], [phone], Provider Name:Mayo Cox ier, 02/15/2026 02:30:00 PM, [address], [address], [place], [phone], Progress Notes * Boni ESPINOZA WDOB: (69 yo M)Acc No.[id number]:03/15/2025 Progress Notes Patient: Boni MORILLO Provider: Preet Mart MD :1955 A ge:69 Y S ex:Male Date:03/15/2025 Address:[address] [place] [address], [id number] Subjective: * Chief Complaints: * 1 week f/u * HPI: S ymptom(s): patient is a 69 yo male here for one week follow up visit/ felt better the next day and never took the antibiotics. * ROS: G eneral/Constitutional: Denies C hills. D enies F atigue. D enies F ever. D enies H eadache. E NT: Denies S ore throat. R espiratory: Denies C ough. D enies S hortness of breath at rest. D enies S hortness of breath with exertion. G astrointestinal: Denies A bdominal pain. D enies D iarrhea. [...] TABLETS BY MOUTH Orally twice a day Not-Taking/PRNAmoxicillin-Pot Clavulanate 875-125 MG Tablet 1 tablet Orally every 12 hrs Flecainide Acetate 100 MG Tablet 0.5 tablet Orally every 12 hrs Medication List reviewed and reconciled with the patientNot-Taking/PRN Amoxicillin-Pot Clavulanate 875-125 MG Tablet 1 tablet Orally every 12 hrs Not-Taking/PRN Flecainide Acetate 100 MG Tablet 0.5 tablet Orally every 12 hrs Medication List reviewed and reconciled with the patient * Allergies: C leif: val[Allergies Verified] Objective: * Vitals: H t: 67.5, Wt: 177, BMI:27.31, BP:132/70, Wt-k.29. * Examination: G eneral Examination: GENERAL APPEARANCE: a lert, well hydrated, in no distress.? SKIN: g ood turgor. HEART: n o murmurs, rubs, gallops, regular rate and rhythm.? LUNGS: n o wheezes, rales, rhonchi, good air movement, clear to auscultation bilaterally. ABDOMEN: s oft, nontender, nondistended with minimal tenderness. Assessment: * Assessment: 1. D iverticulitis - K57.92 (Primary) 2 . I nsomnia - G47.00 ? Plan: * Treatment: 2. I nsomnia Start traZODone HCl Tablet, 50 MG, 1 tablet at bedtime as needed, Orally, Once a day, 30 days, 30, Refills 3. Notes: patient verbalized undersanding of medicatin and directions for use * Procedure Codes: * Follow Up: 3 Months * * Sign off status: Completed true * Provider: Preet Mart MD Date: Generated for Jovi quezada/Edenilson/Enitting on: 07/04/2024 12:44 AM EST History and Physical Notes * Examination Category Sub-Category Detail Notes Category Not es General Examination GENERAL APPEARANCE: alert, w ell hydrated, in no distress HEART: no murmurs, rubs, ga llops, regular rate and rhythm LUNGS: no wheezes, rales, r honchi, good air movement, clear to auscultation bilaterally ABDOMEN: soft, nontender, non distended with minimal tenderness SKIN: good turgor Consultation Request Notes Referral Date Referring Provider Referred Provider Not es 03/15/2025 Mayo Mart Bernard Divert iculitis needs colonoscopy
--- NOTE | ~2025-05-02 | CT_ITS ---
EXAMINATION: CT LOW-DOSE SCREENING CHEST WITHOUT CONTRAST CLINICAL INFORMATION: 69-year-old male, current smoker, 50 pack years, lung cancer screening. COMPARISON: 12/28/2023, 09/25/2022. TECHNIQUE: Multidetector volumetric CT imaging of the chest is performed on a Siemens SOMATOM Definition scanner without contrast using low dose technique. Additional 2D coronal and sagittal reformatted images and axial 3D maximum intensity projection (MIP) images are generated on the CT workstation. This CT examination was performed using dose optimization techniques as appropriate, variously including the following: *Automated exposure control *Adjustment of mA and/or kV according to patient size (this includes techniques or standardized protocols for targeted exams where dose is matched to indication/reason for exam; i.e. extremities or head) *Use of iterative reconstruction technique FINDINGS: PULMONARY NODULES: There are some scattered foci of pleural nodularity in the upper lungs bilaterally, which are stable. A 3 mm pleural-based right upper lobe nodule is unchanged (series 4, image 46). A linear appearing 4 mm left upper lobe nodule laterally is unchanged (series 4, image 48). A pleural-based 2 mm nodule in the anterior right upper lobe is unchanged (series 4, image 73). A calcified granuloma in the superior segment of the right lower lobe measuring 3 mm is unchanged. Nodules in the left apex are stable and unchanged measuring up to 4 mm (series 4, image 28). No new or enlarging pulmonary nodule is present. LUNGS: Lungs are well-expanded/aerated bilaterally. There is stable mild to moderate centrilobular emphysema. There is stable mild biapical scarring. No consolidations or interstitial disease. No effusions or pneumothorax. Small airways are diffusely thick-walled, in keeping with chronic bronchitis. Central airways are patent. There is a saber-sheath trachea. MEDIASTINUM: The thyroid is normal. There is no mediastinal lymphadenopathy or mass. The aorta is nonaneurysmal. There is mild atheromatous calcification. The pulmonary trunk is normal in size. The heart size is normal. There is no pericardial effusion. There is a prominent epicardial fat pad. Esophagus is unremarkable. CORONARY ARTERY CALCIFICATION: Moderate to heavy. CHEST WALL/AXILLA: No mass or abnormal lymph nodes is present. UPPER ABDOMEN: There has been a cholecystectomy. There are splenic granulomas. There are diffuse calcific densities throughout the pancreas in keeping with chronic pancreatitis. Remainder of the imaged upper abdominal contents appear normal allowing for noncontrast low dose technique. OSSEOUS STRUCTURES: There is no suspicious lytic or blastic bone lesion. There are mild degenerative spinal changes. CT/CT lung screening IMPRESSION: 1. There are scattered stable lung nodules measuring up to 4 mm. There is no new or enlarging pulmonary nodule. 2. Mild to moderate centrilobular emphysema. Lungs otherwise clear. 3. Diffuse small airway thickening in keeping with chronic bronchitis. 4. Ancillary findings as discussed in the body of the report. ASSESSMENT: 1. Lung-RADS Category 2: Benign appearance or behavior of nodules. 2. Lung-RADS Category S: None. RECOMMENDATION: Continued routine annual low-dose CT lung screening in 1 year is recommended. An order for CT CHEST LOW DOSE CANCER SCREENING ([id number]) can be placed. Electronically signed by: Jd Willis MD 05/02/2025 04:40 PM [facility]
--- OUTSIDE RECORDS SUMMARY | 2025-05-03 00:44 | XMS_ITS | Patient Health Record ---
Author Organization [facility] Address [address] [place] [address] Care Team Providers Care Spring Assembler Supervisor Name Role Phone Brittny ACUÑA, Mayo Primary Care Provider Juaquin Trinidad Unavailable [phone] Allergies Allergen (clinical drug ingredient) Drug/Non Drug Allergy documented on EMR Reaction Allergy Type Onset Date Status Chantix Starting Wed Jacky anger Drug Allergy [...] many cigarettes a day do you smoke? 11 Alcohol Screen Question Answer Notes Did you have a drink containing alcohol in the p ast year? No Points 0 Interpretation Negative Tobacco use other than smoking: Question Answer Notes Are you an other tobacco user? No Problems Problem Type SNOMED Code ICD Code Onset Dates Problem Status W/U Status Risk Notes Problem Localized, primary osteoarthritis of the ankle and/or foot (482236335) Primary osteoarthrit is, left ankle and foot (M19.072) Active confirmed Plan Of Treatment No Information Insurance Providers Payer Name Payer Address Payer Phone Subscriber Number Group Number Insured Name Patient Relationship to Insured Coverage Start Date Coverage End Date [employer] Medicare [id number] [address] [address] [place] [address] [id number] Boni Espinoza Self - patient is the [...]
--- OUTSIDE RECORDS SUMMARY | 2025-05-03 00:44 | XMS_ITS | Clinical Summary ---
Author Organization [facility] Address [address] [place] [address] Care Team Providers Care Burlap Roll Coverer Name Role Phone Mayo Mart MD Primary [...] Zoster (Shingles) Vaccine (1 of 2) 2007 Influenza Vaccine 12/22/2024 COVID-19 Vaccine (2 - 2024-2 6 season) 2025 08/27/2020 RSV Vaccine 50 years and old er and Patients (1 - 1-dose 75+ series) 2032 Hepatitis B Vaccines Aged Out No long er eligible based on patient's age to complete this topic Insurance [employer] MGD MEDICARE Care Teams Burlap Roll Coverer Relationship Specialty Start Date End Date Mayo Mart MD [address] [place] [address] [place] [address] PCP - General Internal Medicine 09/15/23
--- OUTSIDE RECORDS SUMMARY | 2025-05-03 00:44 | XMS_ITS | Clinical Summary ---
Author Organization [email or web address] [place] [address] Care Team Providers Care Systems Specialist Name Role Phone Mayo Mart MD Primary Care Provider [phone] Surgical History Surgery Date Site/Laterality Comments TONSILLECTOMY [...] on file Sexual Orientation Not on file Plan of Treatment Health Maintenance Due Date Last Done Comments Colorectal Cancer Screening: Colonoscopy 1955 DTaP,Tdap,and Td Vaccines (1 - Tdap) 1976 Hepatitis A Vaccines (1 of 2 - Risk 2-dose series) 1976 Pneumococcal Vaccine: 50+ Ye ars (1 of 2 - PCV) 1976 Zoster Vaccines (1 of 2) 2007 Abdominal Aortic Aneurysm (A AA) Screen 03/06/2024 Cholesterol Screening (Lipid Panel) 03/06/2024 Falls Risk Assessment 03/06/2024 Hepatitis C Screening 03/06/2024 Social Influencers of Health Screening 03/06/2024 Depression Screening 05/24/2024 COVID-19 Vaccine ( - 2024-2 6 season) 2025 Influenza Vaccine (#1) 2025 RSV Immunization Adult [...] age to complete this topic Care Teams Systems Specialist Relationship Specialty Start Date End Date Mayo Mart MD PCP - General Internal Medicine 02/15/20
--- OUTSIDE RECORDS SUMMARY | 2025-05-03 00:45 | XMS_ITS | Patient Health Record ---
Author Organization [facility] Address [address] [place] [id number] Care Team Providers Care News Analyst Name Role Phone Mayo Mart MD Primary Care Provider Delano Weir Jr Unavailable Allergies No Known Allergies Reason For Referral No Information Medications Medication SIG (Take, Route, Frequency, Duration) Notes Start Date End Date Status metFORMIN HCl 500 MG Tablet Oral; Duration: 90 Active Melatonin 3 MG Tablet 1 tablet at bedtim e as needed Orally Once a day; Duration: 30 day(s) Active Atorvastatin Calcium 20 MG Tablet Oral; Duration: 90 Active dilTIAZem HCl ER Coated Beads 120 MG Capsule Extended Release 24 Hour Oral; Duration: 60 Active Metoprolol Tartrate 50 MG Tablet Oral; Duration: 90 Active Eliquis 5 MG Tablet Oral; Duration: 90 Active Immunizations Vaccine Route Administration Date Status Comme nts Influenza Unknown 02/14/2024 Refused Social History Tobacco Use: Social History Observation Description Date Details (start date - stop date) Current Smoker NA - NA Social History Drugs/Alcohol: Social Info Question Answer Notes Alcohol Screen Did you have a drink containing alcohol in the past year? 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) Active confirmed Problem Pre-procedure evaluation check (362188436) Encounter for other preprocedural examination (Z01.818) Active confirmed Plan Of Treatment Future Test Test Name Order Date COLONOSCOPY 02/14/2024 Next Appt Details Provider Name:Delano Noe lal Jr, 07/23/2025 09:20:00 AM, [address] [place] [address], [address], [place], [address], Insurance Providers Payer Name Payer Address Payer Phone Subscriber Number Group Number Insured Name Patient Relationship to Insured Coverage Start Date Coverage End Date [facility] [address] [address] [place] [address] [id number] ALEXANDRIA NICHOLAS Self - patient is the insured Medical (General) History Medical History History ICD Code Atrial fibrillation COPD Coronary artery calcifications Hepatic steatosis Alcohol abuse, in remission Elevated blood sugar Surgical History Surgery Date(Month/Year) Cholecystectomy Hospitalization History Reason Date(Month/Year)
--- OUTSIDE RECORDS SUMMARY | 2025-05-03 00:45 | XMS_ITS | Clinical Summary ---
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 Name Role Phone Mayo Mart MD Primary Care Provider [phone] Allergies No known active allergies Medications Medication [...] Risk Assessment 2022 COVID-19 Vaccine (2 - 2024-2 6 season) 2025 08/27/2020 Influenza Vaccine (#1) 2025 RSV Adult > 60+ Yrs or Pregn ant (1 - 1-dose 75+ series) 2032 Hepatitis B Vaccines Aged Out No long er eligible based on patient's age to complete this topic RSV Ped < 20 months Aged Out No longe r eligible based on patient's age to complete this topic Advance Directives For more information, please contact: [phone] Latest Code Status on File Code Status [...] following way: per unit protocol. Care Teams Trestle Mainternance Laborer Relationship Specialty Start Date End Date Mayo Mart MD [address] [place] [address] PCP - General Internal Medicine 02/26/17
--- OUTSIDE RECORDS SUMMARY | 2025-05-03 00:46 | XMS_ITS | Patient Health Record ---
Author Organization Mayo Mart MD Address [address] [place], [place] [phone] Care Team Providers Care Drafter Automotive Design Name Role Phone Mayo Mart Primary Care [...] 7.7 Complete Blood Count Auto Di ff Reviewed date:01/19/2025 06:51:07 PM Interpretation: Performing Lab:[facility], [address] [place] [phone] Notes/Report: White Blood Count 7.2 4.8-10.8 X10*3/uL [...] 0.0-0.2 /100WBC Neutrophils Absolute Auto 4.7 2.0-8.3 x10*3/uL Imm Gran Abs Auto 0.04 0.00-0.03 X10*3/uL Lymphocytes Absolute Auto 1.5 1.2-4.9 X10*3/uL Monocytes Absolute Auto 0.7 0.1-1.2 X10*3/uL Eosinophils Absolute Auto 0.2 0.0-0.4 X10*3/uL Basophils Absolute Auto 0.1 0.0-0.2 X10*3/uL NRBC Abs Auto 0.000 0.0-0.012 X10*3/uL Comprehensive [place]. Panel Fa st Reviewed date:01/19/2025 06:44:30 PM Interpretation: Performing Lab:[facility], [address] [place] [phone] Notes/Report: Sodium 141 135-145 mmol/L Potassium 4.6 [...] Panel Reviewed date:01/19/2025 05:07:40 PM Interpretation: Performing Lab:[facility], [address] [place] [phone] Notes/Report: Triglycerides 92 <150 mg/dL Desirable Triglyceride: [...] (Free>4and<10) Reviewed date:01/19/2025 06:41:34 PM Interpretation: Performing Lab:[facility], [address] [place] [phone] Notes/Report: PSA,Total (Free>4and<10) 0.39 0.00-4.00 ng/mL A [...] Random Reviewed date:01/19/2025 06:44:39 PM Interpretation: Performing Lab:[facility], [address] [place] [phone] Notes/Report: Creatinine Urine 155.47 Microalbumin Urine 68.0 Microalbum/Creatinine Ratio Ur 43.7 <30 ug/mg cr Albumin/Creatinine Ratio Reference Ranges: Normal: < 30 ug/mg creatinine Microalbuminuria: 30 - 300 ug/mg creatinine Clinical Albuminuria: > 300 ug/mg creatinine Hemoglobin A1c Reviewed date:01/19/2025 06:41:59 PM Interpretation: Performing Lab:[facility], [address] [place] [phone] Notes/Report: Hemoglobin A1c % 8.4 <6.0 % [...] average glucose, using the formula of the B5C-[place] Average Glucose study (ADAG), Diabetes Care, Vol.31,#8, Dec. 2007 UA ClnCatch+Micro w/rflx Cul t Reviewed date:01/19/2025 06:50:51 PM Interpretation: Performing Lab:[facility], [address] [place] [phone] Notes/Report: Urine, Clean Catch Color Urine Yellow Appearance Urine Clear PH 5.5 5.0-9.0 Glucose Urine UA 250 Negative mg/dL Urine Blood Negative Negative Specific [place] - Urine 1.025 1.005-1.025 Urine Protein 30 (1+) Neg-Trace mg/dL Urine Ketones Trace Negative mg/dL Nitrite Urine Negative Negative Leukocyte Esterase Urine Negative Negative RBC Urine 0-2 0-2 /HPF WBC Urine 0-5 0-5 /HPF Squamous Epithelial Cell Urine 0-2 0-2 /HPF Calcium Oxalate Crystals Urine Present Bacteria Urine None Seen None Seen Hyaline Casts Urine 0-2 0-2 /LPF Glucose, finger stick Reviewed date:07/04/2024 02:18:26 PM Interpretation: Performing Lab: Notes/Report: Value 170 Glucose, finger stick Reviewed date:11/13/2024 01:37:36 PM Interpretation: Performing Lab: Notes/Report: Value 173 Occult Blood, Stool, Guaiac Reviewed date:02/12/2025 02:18:08 PM Interpretation:Negative Performing Lab: Notes/Report: Negative Occult Blood, Stool, Guaiac neg Glucose, finger stick Reviewed date:02/12/2025 01:50:03 PM Interpretation: Performing Lab: Notes/Report: Value 193 Glucose, finger stick Reviewed date:03/08/2025 11:46:18 AM Interpretation: Performing Lab: Notes/Report: Value 225 CT lung screening (Not yet r eviewed by provider) Interpretation: Performing Lab: Notes/Report: [address] [address] [address] Scan Report Signed Patient: Boni Espinoza MR#: [id number] : 1955 Acct:[id number] Age/Sex: 69 / M ADM Date: 05/02/25 Loc: HO.CT Attending Dr: Aleisha Romero PA-C Ordering Physician: Aleisha Romero PA-C Date of Service: 05/02/25 Procedure(s): CT lung screening Accession Number(s): [id number] cc: Mayo Mart MD; Aleisha Romero PA-C Report Number: [id number]: Total DLP = 102.00 mGy-cm Reason for Exam: F17.210 - Nicotine dependence, cigarettes, uncomplicated EXAMINATION: CT LOW-DOSE SCREENING CHEST WITHOUT CONTRAST CLINICAL INFORMATION: 69-year-old male, current smoker, 50 pack years, lung cancer screening. COMPARISON: 12/28/2023, 09/25/2022. TECHNIQUE: Multidetector volumetric CT imaging of the chest is performed on a Siemens SOMATOM Definition scanner without contrast using low dose technique. Additional 2D coronal and sagittal reformatted images and axial 3D maximum intensity projection (MIP) images are generated on the CT workstation. This CT examination was performed using dose optimization techniques as appropriate, variously including the following: *Automated exposure control *Adjustment of mA and/or kV according to patient size (this includes techniques or standardized protocols for targeted exams where dose is matched to indication/reason for exam; i.e. extremities or head) *Use of iterative reconstruction technique FINDINGS: PULMONARY NODULES: There are some scattered foci of pleural nodularity in the upper lungs bilaterally, which are stable. A 3 mm pleural-based right upper lobe nodule is unchanged (series 4, image 46). A linear appearing 4 mm left upper lobe nodule laterally is unchanged (series 4, image 48). A pleural-based 2 mm nodule in the anterior right upper lobe is unchanged (series 4, image 73). A calcified granuloma in the superior segment of the right lower lobe measuring 3 mm is unchanged. Nodules in the left apex are stable and unchanged measuring up to 4 mm (series 4, image 28). No new or enlarging pulmonary nodule is present. LUNGS: Lungs are well-expanded/aerated bilaterally. There is stable mild to moderate centrilobular emphysema. There is stable mild biapical scarring. No consolidations or interstitial disease. No effusions or pneumothorax. Small airways are diffusely thick-walled, in keeping with chronic bronchitis. Central airways are patent. There is a saber-sheath trachea. MEDIASTINUM: The thyroid is normal. There is no mediastinal lymphadenopathy or mass. The aorta is nonaneurysmal. There is mild atheromatous calcification. The pulmonary trunk is normal in size. The heart size is normal. There is no pericardial effusion. There is a prominent epicardial fat pad. Esophagus is unremarkable. CORONARY ARTERY CALCIFICATION: Moderate to heavy. CHEST WALL/AXILLA: No mass or abnormal lymph nodes is present. UPPER ABDOMEN: There has been a cholecystectomy. There are splenic granulomas. There are diffuse calcific densities throughout the pancreas in keeping with chronic pancreatitis. Remainder of the imaged upper abdominal contents appear normal allowing for noncontrast low dose technique. OSSEOUS STRUCTURES: There is no suspicious lytic or blastic bone lesion. There are mild degenerative spinal changes. CT/CT lung screening IMPRESSION: 1. There are scattered stable lung nodules measuring up to 4 mm. There is no new or enlarging pulmonary nodule. 2. Mild to moderate centrilobular emphysema. Lungs otherwise clear. 3. Diffuse small airway thickening in keeping with chronic bronchitis. 4. Ancillary findings as discussed in the body of the report. ASSESSMENT: 1. Lung-RADS Category 2: Benign appearance or behavior of nodules. 2. Lung-RADS Category S: None. RECOMMENDATION: Continued routine annual low-dose CT lung screening in 1 year is recommended. An order for CT CHEST LOW DOSE CANCER SCREENING ([id number]) can be placed. Electronically signed by: Jd Willis MD 05/02/2025 04:40 PM [facility] Dictated By: Jd Willis MD Signed By: <Electronically signed by Jd Willis MD in OV> 05/02/25 1640 DD/ 1607 TD/TT: 05/02/25 1623 Blueprint Reader: [place] [id number] CT Scan Report Signed Patient: Eh Espinoza MR#: [id number] : 1955 Acct:[id number] Age/Sex: 69 / M ADM Date: 05/02/25 Loc: HO.CT Attending Dr: Aleisha Romero PA-C Ordering Physician: Aleisha Romero PA-C Date of Service: 05/02/25 Procedure(s): CT angely g screening Accession Number(s): [id number] cc: Maoy Mart MD; Aleisha Romero PA-C Report Number: [id number]: Total DLP = 102.00 mGy-cm Reason for Exam: F17.210 - Nicotine dependence, cigarettes, uncomplicated EXAMINATION: CT LOW-DOSE SCREENIN G CHEST WITHOUT CONTRAST CLINICAL INFORMATION: 69-year-old male, current smoker, 50 pack years, lung cancer screening. COMPARISON: 12/28/2023, 09/25/2022. TECHNIQUE: Multidetector volumetric CT imaging of the chest is performed on a Siemens SOMATOM Definition scanner without contrast using low dose technique. Additiona l 2D coronal and sagittal reformatted images and axial 3D maximum intensity projection (MIP) images are generated on the CT workstation. This CT examination was performed using dose optimization techniques as appropriate, various ly including the following: *Automated exposure control *Adjustment of mA and/or kV according to patient size (this includes techniques or standardized protocols for targeted exams where dose is matched to indication/reason for exam; i.e. extremities or head) *Use of iterative reconstruction technique FINDINGS: PULMONARY NODULES: There are some scattered foci of pleural nodularity in the upper lungs bilaterally, which a re stable. A 3 mm pleural-based right upper lobe nodule is unchanged (series 4, image 46). A linear appearing 4 mm left upper lobe nodule laterally is unchanged (series 4, image 48). A pleural-based 2 mm nodule in the anterior right upper lobe is unchanged (series 4, image 73). A calcified granulom a in the superior segment of the right lower lobe measuring 3 mm is unchanged. Nodules in the left apex are stable and unchanged measuring up to 4 mm (series 4, image 28). No new or enlarging pulmonary nodule is present. LUNGS: Lungs are well-expanded/aerated bilaterally. There is stable mild to moderate centrilobul ar emphysema. There is stable mild biapical scarring. No consolidations or interstitial disease. No effusions or pneumothorax. Small airways are diffusely thick-walled, in keeping with chronic bronchitis. Central airways are patent. There is a saber-sheath trachea. MEDIASTINUM: The thyroid is normal. There is no mediasti nal lymphadenopathy or mass. The aorta is nonaneurysmal. There is mild atheromatous calcification. The pulmonary trunk is normal in size. The heart size is normal. There is no pericardial effusion. There is a prominent epicardial fat pad. Esophagus is unremarkable. CORONARY ARTERY CALCIFICATION: Moderate to heavy. CHEST WALL/AXILLA: N o mass or abnormal lymph nodes is present. UPPER ABDOMEN: There has been a cholecystectomy. There are splenic granulomas. There are diffuse calcific densities throughout the pancreas in keeping with chronic pancreatitis. Remainder of the zandra ged upper abdominal contents appear normal allowing for noncontrast low dose technique. OSSEOUS STRUCTURES: There is no suspicio us lytic or blastic bone lesion. There are mild degenerative spinal changes. CT/CT lung screening IMPRESSION: 1. There are scatter ed stable lung nodules measuring up to 4 mm. There is no new or enlargi ng pulmonary nodule. 2. Mild to moderate centrilobular emphysema. Lungs otherwise clear. 3. Diffuse small air way thickening in keeping with chronic bronchitis. 4. Ancillary finding s as discussed in the body of the report. ASSESSMENT: 1. Lung-RADS Categor y 2: Benign appearance or behavior of nodules. 2. Lung-RADS Categor y S: None. RECOMMENDATION: Continued routine annual low-dose CT lung screening in 1 year is recommended. An orde r for CT CHEST LOW DOSE CANCER SCREENING ([id number]) can be placed. Electronically jacob d by: Jd Willis MD 05/02/2025 04:40 PM EST Dictated By: Jd Willis MD Signed By: <Electronically signed by Jd Willis MD in OV> 05/02/25 1640 DD/ 1607 TD/TT: 05/02/25 1623 Blueprint Reader: Reason For Referral Reason Diverticulitis nee ds colonoscopy Diagnosis 1 Diverticulitis (K57. 92) Referral Organization Mayo Mart MD Referring Provider First Name Mayo Referring Provider Last Name Brittny Referring Provider Speciality Internal M edicine Referred Provider Delano Andino Referred Provider Specialty Gastroentero logy General Notes Taryn Bolivar 1 11:43:32 AM >referral info faxedKatt Annette 03/30/2025 01:18:35 PM >patient is aware of appt Referral Priority Routine Referral Appointment Date 08/16/2025 Medications Medication SIG (Take, Route, Frequency, Duration) Notes Start Date End Date Status Flecainide Acetate 100 MG 0.5 tablet Ora lly every 12 hrs for 30 day(s) Not-Taking Amoxicillin-Pot Clavulanate 875-125 MG 1 tablet Orally every 12 hrs for 10 days 03/08/2025 Not-Taking metFORMIN HCl 500 MG TAKE 2 [...] 2 tabs Orally once a day Active Clobetasol Propionate 0.05 % 1 application Externally Twice a day for 30 days 09/22/2019 Active Atorvastatin Calcium 20 MG 1 tablet Orally Once a day for 30 day(s) Active traZODone HCl 50 MG 1 tablet at bedtime as needed Orally Once a day for 30 days 03/15/2025 Active Immunizations Vaccine Route Administration Date Status [...] Fluarix Quadrivalent - 150 Unknown 02/17/2024 Refused Influenza High Dose Unknown 02/12/2025 Refused Social [...] Notes: stopped drinking a few weeks ago stopped [...] W/U Status Risk Notes Problem Atrial fibrillation (97632874) Atrial fibrillation (I48.91) Active confirmed Problem 970781416 Lung nodule seen on imaging study (R91.1) Active confirmed Problem Insomnia (594949670) Insomnia (G47.00) Active confirmed Problem Anxiety (10250098) Anxiety (F41.9) Active confirmed Problem 948387848 Diverticulitis (K57.92) Active confirmed Problem 4029543 Primary insomnia (F51.01) Active confirmed Problem 928594228 Chronic tension- type headache, not intractable (G44.229) Active confirmed Problem 31944784 Other emphysema (J43.8) Active confirmed Problem 2024742 Diverticulitis o f large intestine without perforation or abscess without bleeding (K57.32) Active confirmed Problem 3505535 Psoriasis (L40.9) Active confirmed Problem 637200455 Labile hypertens ion (I10) Active confirmed Problem 41846805 Current smoker (F17.200) Active confirmed Problem 97967490 Dysthymia (F34.1) Active confirmed Problem 867478946 Pure hypercholesterolemia (E78.00) Active confirmed Problem 5485850 Alcoholism (F10.20) Active confirmed Problem 66505856 Arteriosclerotic coronary artery disease (I25.10) Active confirmed Problem 55898277 Type 2 diabetes mellitus treated without insulin (E11.9) Active confirmed Vital Signs Blood pressure diastolic 70 mm Hg 03/15/2025 Height 67.5 in 03/15/2025 Blood pressure systolic 132 mm Hg 03/15/2025 Weight 177 lbs 03/15/2025 BMI 27.31 kg/m2 03/15/2025 Encounters Encounter Location Date Provider Diagnosis Mayo Mart MD [address] [place] [id number] 01/19/2025 Mayo Mart Blood tests for rout ine general physical examination Z00.00 ; Pure hypercholesterolemia E78.00 ; Labile hypertension I10 and Type 2 diabetes mellitus treated without insulin E11.9 Mayo Mart MD [address] [id number] 07/04/2024 Mayo Mart Type 2 diabetes armond itus treated without insulin E11.9 ; Alcoholism F10.20 and Current smoker F17.200 Mayo Mart MD [address] [id number] 11/13/2024 Mayo Mart Type 2 diabetes armond itus treated without insulin E11.9 ; Current smoker F17.200 ; Alcoholism F10.20 and Atrial fibrillation I48.91 Mayo Mart MD [address] [id number] 02/12/2025 Mayo Mart Annual physical exam Z00.00 ; Type 2 diabetes mellitus treated without insulin E11.9 ; Atrial fibrillation I48.91 ; Lung nodule seen on imaging study R91.1 ; Anxiety F41.9 ; Current smoker F17.200 ; Other emphysema J43.8 ; Colon cancer screening Z12.11 and Depression screening Z13.31 Mayo Mart MD [address] [place] [id number] 03/08/2025 Mayo Mart Type 2 diabetes armond itus treated without insulin E11.9 and Diverticulitis K57.92 Mayo Mart MD [address] [id number] 03/15/2025 Mayo Bombardier Diverticulitis K57.9 2 and Insomnia G47.00 Mayo Mart MD [address] [place] [id number] 06/30/2024 Mayo Mart MD [address] [place] [id number] 02/13/2025 Mayo Mart MD [address] [place] [id number] 02/16/2025 Mayo Mart Anxiety F41.9 Assessments Encounter Date Diagnosis (ICD Code) Assessment Notes Treatment Notes Treatment Clinical Notes Section Notes 01/19/[address] ine general physical examination (ICD-10 - Z00.00) 07/04/2024 Type 2 diabetes mellitus treated without insulin (ICD-10 - E11.9) stable, will contnue current regiment 11/13/2024 Type 2 diabetes mellitus treated without insulin (ICD-10 - E11.9) stable, will cntinue current regiment 02/12/2025 Annual physical exam (ICD-10 - Z00.00) labs reviewed and discussed with patient z12.11 02/12/2025 Type 2 diabetes mellitus treated without insulin (ICD-10 - E11.9) not watching his diet. encouraged diet, will continue current regiment and will contnue to monitor z12.11 03/08/2025 Type 2 diabetes mellitus treated without insulin (ICD-10 - E11.9) 03/08/2025 Diverticulitis (ICD- 10 - K57.92) patient verbaized understanding of medication and directions for use 03/15/2025 Diverticulitis (ICD- 10 - K57.92) resolved with no antibiotics/ needs referral to dr andino for colonoscopy 03/15/2025 Insomnia (ICD-10 - G47.00) patient verbalized undersanding of medicatin and directions for use 02/16/2025 Anxiety (ICD-10 - F41.9) 01/19/2025 Pure hypercholesterolemia (ICD-10 - E78.00) 07/04/2024 Alcoholism (ICD-10 - F10.20) has been sober for 1.5 weeks 11/13/2024 Current smoker (ICD- 10 - F17.200) not ready to quit 02/12/2025 Atrial fibrillation (ICD-10 - I48.91) doing well, will continue current regiment z12.11 01/19/2025 Labile hypertension (ICD-10 - I10) 07/04/2024 Current smoker (ICD- 10 - F17.200) not ready to quit 11/13/2024 Alcoholism (ICD-10 - F10.20) not drinking yet 02/12/2025 Lung nodule seen on imaging study (ICD-10 - R91.1) getting ct yearly z12.11 01/19/2025 Type 2 diabetes mellitus treated without insulin (ICD-10 - E11.9) 11/13/2024 Atrial fibrillation (ICD-10 - I48.91) need last note from [facility] 02/12/2025 Anxiety (ICD-10 - F41.9) z12.11 02/12/2025 Current smoker (ICD- 10 - F17.200) try to get him to quit z12.11 02/12/2025 Other emphysema (ICD -10 - J43.8) z12.11 02/12/2025 Colon cancer screeni ng (ICD-10 - Z12.11) guaiac negative z12.11 02/12/2025 Depression screening (ICD-10 - Z13.31) negative screen z12.11 Plan Of Treatment Pending Test Test Name Order Date [facility] 07/09/2022 CT lung screening 05/02/2025 Next Appt Details Provider Name:Mayo parson, 05/21/2025 01:30:00 PM, [address] [place] [address], [address] [place] [address], [id number], Provider Name:Mayo parson, 08/10/2025 08:15:00 AM, [address] [place] [address], [address] [place] [address], [id number], Provider Name:Mayo parson, 08/17/2025 01:30:00 PM, [address] [place] [address], [address] [place] [address], [id number], Provider Name:Mayo parson, 02/08/2026 08:00:00 AM, [address] [place] [address], [address], [phone], Provider Name:Mayolashon Cox ier, 02/15/2026 02:30:00 PM, [address], [address], [place], [place], [phone], Insurance Providers Payer Name Payer Address Payer Phone Subscriber Number Group Number Insured Name Patient Relationship to Insured Coverage Start Date Coverage End Date [facility] [employer] [address] [address] [place] [address] [id number] Boni Espinoza Self - patient is the insured Medical (General) History Medical History History ICD Code colonoscopy 2013 due in 5 years. endosco py was negative. dr barrow ablation for afib
== END 2025-05-02 16:03 | disposition home or self-care (01) ==
LOC: HO.CT 16:02
PROVIDERS: PCP Internal Medicine; Visit Provider Physician Assistant Medical
DX: F17.210 Nicotine dependence, cigarettes, uncomplicated (principal)
CPT/HCPCS: 71271

== ENCOUNTER → 2025-05-02 16:04 | Outpatient (BNV) | payer MEDICARE, SELFPAY | PROVIDERS: PCP Internal Medicine; Visit Provider Radiology Diagnostic Radiology | DX: Z12.2 Encounter for screening for malignant neoplasm of respiratory organs (principal); R91.8 Other nonspecific abnormal finding of lung field; J43.2 Centrilobular emphysema; Z87.891 Personal history of nicotine dependence | CPT/HCPCS: 71271 ==